=== PATIENT | female | born 1955 | race Caucasian/White ===

== ENCOUNTER → 2021-08-15 16:29 | Outpatient (CLI) | payer MEDICARE, OTHER, MEDICAID, SELFPAY | PROVIDERS: Visit Provider Nurse Practitioner | DX: Z20.822 Contact with and (suspected) exposure to COVID-19 (principal) | CPT/HCPCS: C9803; U0003; U0005 ==

== ENCOUNTER 2021-09-06 10:12 | Emergency (ER) | payer MEDICARE, OTHER, MEDICAID, SELFPAY ==
[2021-09-06] VITALS (8 sets, daily range): BP systolic 93–108; BP diastolic 33–71; PULSE 65–83; RESP 16–98; TEMP 36.6–36.8; O2SAT 96–98; BMI 32.1
--- NOTE | 2021-09-06 11:10 | HMH.EDGENADL ---
ED Disposition Clinical Impression: Low back pain Qualifiers: Chronicity: acute Back pain laterality: unspecified Sciatica presence: without sciatica Qualified Code(s): M54.50 - Low back pain, unspecified Disposition: Home, Self-Care Condition on Discharge: Good Instructions: DI for Low Back Pain Additional Instructions: [place] as needed for pain. Prednisone as prescribed. Follow-up with primary care provider within 1 week, call for appointment. Additional instructions for BACK PAIN: Return immediately if back pain becomes intolerable, or if fever, numbness or weakness of your legs, loss of control of your bowels or bladder. Additional instructions for CONTROLLED SUBSTANCES: You have been prescribed a medication that is a controlled substance. Controlled substances include pain medications known as opiates and sedative nerve medications known as benzodiazepines. Tramadol, fioricet, and gabapentin are also controlled substances. Some common opiates include: Codeine (such as Tylenol #3) Hydrocodone (Vicodin, Lortab, Lorcet, [place]) Oxycodone (Percocet, Percodan, Oxycodone, Oxy IR) Some common benzodiazepines include: Diazepam (Valium) Lorazepam (Ativan) Alprazolam (Xanax) Clonazepam (Klonopin) Oxazepam (Serax) All of these controlled substances are highly addictive and frequently abused. Misuse can and frequently does lead to addiction as well as overdose and . Medication should be stored in a locked cabinet or other secure storage unit. Do not store the medication in a motor vehicle. Short term supplies, 3 days or less, are prescribed because of the highly addictive nature of the medication. Any of the controlled substance medication NOT taken should be disposed of properly and NOT SAVED. The recommended method of disposing of unused medications is: Place the medicines in a sealable plastic bag. If the medicine is a solid, crush it or add water to dissolve it. Add something undesirable (cat litter, coffee grounds, etc.) Dispose of sealed bag in household trash Do not flush or pour unused medicines down a sink or drain. Controlled substances should not be shared, given away or sold. Because of the addictive nature and frequent abuse, these medications are sometimes stolen. These medications should be kept in a safe place where they cannot be stolen. Do not keep them in your car or purse. Lost or stolen prescriptions for controlled substances WILL NOT BE REFILLED in this emergency department, regardless of whether a police report was filed. Prescriptions: Hydrocod/Acet 5/325 mg [[place] 5/325mg tablet] 1 tab PO Q6HP PRN #10 tab PRN Reason: Pain Transmission Status: Sent to [id number] predniSONE [Prednisone 20mg Tab] 20 mg PO BID #10 tab Transmission Status: Pending to [id number] Referrals: Siva Swann MD [Primary Care Provider] - - Critical Care Critical Care Time: No Attestation: On 09/06/21, the high probability of a clinically significant, sudden or life threatening deterioration of the following system(s) required my full and direct attention, intervention and personal management. The time I documented below is in addition to time spent performing reported procedures but includes the following listed in this critical care notation. Medical Decision Making - Krish Inquiry Pt receiving controlled substance: Yes Krish was queried for this patient: Yes Risks and benefits of using a controlled substance: were discussed with pt by me Vital Signs: 09/06/21 10:15 Temperature 98.2 F Temperature Source Oral Pulse Rate [Radial] 83 Respiratory Rate 98 H Blood Pressure [Right Arm] 108/51 L Blood Pressure Mean [Right Arm] 70 Blood Pressure Position [Right Arm] Sitting 02 Sat by Pulse Oximetry 98 Oxygen Delivery Method Room Air - CT Data CT Scan: L-Spine Time Received: 12:[address] Reviewed: Yes: I have viewed the radiologist's interpreta
--- NOTE | 2021-09-06 11:21 | CT_ITS ---
FINAL REPORT CLINICAL HISTORY: back pain/injury FINDINGS: Axial imaging of the lumbar spine was obtained without contrast. Sagittal and coronal reformatted images were also obtained and reviewed.This study was performed with techniques to keep radiation doses as low as reasonably achievable (ALARA). Individualized dose reduction techniques using automated exposure control or adjustment of mA and/or kV according to the patient's size were employed. There is no fracture. There are multilevel degenerative changes. There is severe L3-L4 endplate change. There is mild retrolisthesis of L2 on L3 and L3 on L4. There is vacuum disc phenomenon at several levels. There is leftward curvature. There is multilevel neural foraminal narrowing which is worst and severe at L3-L4. There is mild central canal stenosis at L3-L4. There are degenerative changes at the SI joints with spurring. IMPRESSION: Multilevel degenerative change without acute bony abnormality. Reviewed, Interpreted and Dictated by David Medina III, MD Transcribed by Lotus Marcum Authenticated by David Medina III, MD on 09/06/2021 12:32:18 PM [facility]
== END 2021-09-06 14:13 | disposition home or self-care (01) ==
PROVIDERS: Emergency Provider Emergency Medicine; PCP Internal Medicine Adolescent Medicine
DX: M54.50 Low back pain, unspecified (principal); Z85.528 Personal history of other malignant neoplasm of kidney
CPT/HCPCS: 72131; 99282

== ENCOUNTER → 2022-06-27 12:52 | Outpatient (CLI) | payer MEDICARE, OTHER, MEDICAID, SELFPAY ==
--- NOTE | 2022-06-27 12:58 | XR_ITS ---
FINAL REPORT CLINICAL HISTORY: DIABETES MELLITUS,LT FOOT BUNION FINDINGS: RIGHT FOOT Three views of the right foot demonstrate no acute fracture or dislocation. The joint spaces are preserved. There is a moderate plantar spur. The soft tissues are unremarkable. IMPRESSION: No acute bony abnormality. Reviewed, Interpreted and Dictated by Kristian Spear MD Transcribed by Lotus Marcum Authenticated and [facility]
--- NOTE | 2022-06-27 12:58 | XR_ITS ---
FINAL REPORT CLINICAL HISTORY: BUNION FINDINGS: LEFT FOOT Three views of the left foot demonstrate no acute fracture or dislocation. The joint spaces are preserved. There is a moderate to large plantar spur. The soft tissues are unremarkable. IMPRESSION: No acute bony abnormality. Reviewed, Interpreted and Dictated by Kristian Spear MD Transcribed by Lotus Marcum Authenticated and [facility]
== END ==
PROVIDERS: PCP Internal Medicine Adolescent Medicine; Visit Provider Internal Medicine Adolescent Medicine
DX: M79.672 Pain in left foot (principal); M79.671 Pain in right foot; E11.9 Type 2 diabetes mellitus without complications; M21.612 Bunion of left foot
CPT/HCPCS: 73630

== ENCOUNTER → 2022-10-24 10:17 | Outpatient (CLI) | payer MEDICARE, OTHER, SELFPAY ==
--- NOTE | 2022-10-24 | US_ITS ---
FINAL REPORT CLINICAL HISTORY: Decreased pulses, DM, HTN, HLD, color changes in feet COMPARISON: None FINDINGS: ANKLE-BRACHIAL PRESSURE INDICES Pressure indices are as follows: RIGHT LOWER EXTREMITY: Ankle-brachial pressure index: 1.0 Comments: Normal LEFT LOWER EXTREMITY: Ankle-brachial pressure index: 1.1 Comments: Normal IMPRESSION: No evidence of significant obstructive peripheral vascular disease of the lower extremities Reviewed, Interpreted and Dictated by Yarelis Ho MD Transcribed by Nuha Hall Authenticated and [facility]
== END ==
PROVIDERS: PCP Internal Medicine Adolescent Medicine; Visit Provider Nurse Practitioner Family
DX: R09.89 Other specified symptoms and signs involving the circulatory and respiratory systems (principal)
CPT/HCPCS: 93923

== ENCOUNTER → 2023-01-08 11:46 | Outpatient (CLI) | payer MEDICARE, OTHER, SELFPAY ==
--- NOTE | 2023-01-08 11:51 | XR_ITS ---
FINAL REPORT CLINICAL HISTORY: OSTEOARTHRITIS COMPARISON: None FINDINGS: Three views of the left knee reveal no evidence of fracture or dislocation. The bony alignment is normal. There is moderate degenerative change. Medial compartment narrowing is noted. There is a small joint effusion. No localized soft tissue abnormality is seen. IMPRESSION: No acute abnormality identified. Reviewed, Interpreted and Dictated by David Medina III, MD Transcribed by Nuha Hall Authenticated and . [facility]
--- NOTE | 2023-01-08 11:51 | XR_ITS ---
FINAL REPORT CLINICAL HISTORY: OSTEOARTHRITIS COMPARISON: None FINDINGS: Three views of the right knee reveal no evidence of fracture or dislocation. The bony alignment is normal. Moderate to severe degenerative change. Medial compartment narrowing. There is 7 mm of lateral subluxation of the tibia in relation to the distal femur. There is a moderate joint effusion. No localized soft tissue abnormality is identified. IMPRESSION: No acute abnormality identified. Reviewed, Interpreted and Dictated by David Medina III, MD Transcribed by Nuha Hall Authenticated and [facility]
== END ==
PROVIDERS: PCP Internal Medicine Adolescent Medicine; Visit Provider Internal Medicine Adolescent Medicine
DX: M17.11 Unilateral primary osteoarthritis, right knee (principal); M17.12 Unilateral primary osteoarthritis, left knee
CPT/HCPCS: 73562

== ENCOUNTER → 2023-01-24 09:30 | Outpatient (CLI) | payer MEDICARE, OTHER, SELFPAY ==
--- NOTE | 2023-01-24 | XR_ITS ---
FINAL REPORT CLINICAL HISTORY: Foot Pain COMPARISON: 06/27/2022 FINDINGS: RIGHT FOOT SERIES Three views of the right foot were obtained. There is no acute fracture or dislocation. There is a hallux valgus deformity. There is mild degenerative change of the first metatarsal phalangeal joint. There is a pes planus deformity and is worse since the prior, but the current exam is weightbearing. There is a plantar calcaneal spur. There is no soft tissue abnormality. IMPRESSION: Hallux valgus deformity. Mild degenerative change. Pes planus deformity, which is worse since prior, but current exam is weightbearing. Reviewed, Interpreted and Dictated by David Medina III, MD Transcribed by Diego Baker Authenticated and . [facility]
--- NOTE | 2023-01-24 09:33 | XR_ITS ---
FINAL REPORT CLINICAL HISTORY: Foot Pain COMPARISON: 06/27/2022 FINDINGS: LEFT FOOT SERIES Three views of the left foot were obtained. There is no acute fracture or dislocation. Moderate to severe hallux valgus deformity which is visually worse. Mild degenerative change. There is a pes planus deformity which is worse, but the current exam is performed as weightbearing. There is a plantar calcaneal spur. There is no soft tissue abnormality. IMPRESSION: Worsening moderate to severe hallux valgus deformity. Mild degenerative. Worsening pes planus deformity, but current exam is performed as weightbearing. Reviewed, Interpreted and Dictated by David Medina III, MD Transcribed by Diego Baker Authenticated and [facility]
[2023-01-24 10:07] LABS: Basophils % 0.5 % (0.1-2.0); Eosinophils # 0.3 K/mm3 (0.0-0.4); Eosinophils % 3.9 % (0.1-12.0); Hematocrit 44.5 % (37.0-47.0); Hemoglobin 14.2 g/dL (12.2-16.2); Lymphocytes # 1.4 K/mm3 (0.7-4.5); Lymphocytes % 21.8 % (10-50); Mean Corpuscular Hemoglobin 29.9 pg (27.0-31.2); Mean Corpuscular Volume 93.5 fl (81-99); Monocytes # 0.3 K/mm3 (0.1-1.0); Monocytes % 5.2 % (1.7-9.3); Neutrophils # 4.5 K/mm3 (1.8-7.8); Neutrophils % 68.6 % (37.0-80.0); Platelet Count 196 K/mm3 (142-424); Red Blood Count 4.76 M/mm3 (4.20-5.40); Red Cell Distribution Width 13.4 % (11.5-17.5); White Blood Count 6.6 K/mm3 (4.8-10.8)
[2023-01-24 10:19] LABS: Alanine Aminotransferase 30 U/L (12-78); Albumin Level 4.7 g/dl (3.5-5.0); Albumin/Globulin Ratio 1.8 (1.1-1.8); Alkaline Phosphatase 66 U/L (38-126); Anion Gap 15.6 mEq/L (5-15); Aspartate Amino Transferase 34 U/L (14-36); Bilirubin,Total 0.4 mg/dl (0.2-1.3); Blood Urea Nitrogen 24 mg/dl (7-17); Calcium 9.6 mg/dl (8.4-10.2); Carbon Dioxide 27 mmol/L (22.0-30.0); Chloride 101 mmol/L (98-107); Estimated Glomerular Filt Rate 63 ml/min (>60); GFR (African American) 76 ML/MIN (>60); Globulin 2.6 g/dL (1.3-3.2); Glucose 105 mg/dl (74-100); Potassium 4.6 mmoL/L (3.5-5.1); Sodium 139 mmol/L (136-145); Total Protein,Serum 7.3 g/dl (6.3-8.2)
[2023-01-24 10:32] LABS: Hemoglobin A1C 5.4 % (4.0-6.0)
== END ==
PROVIDERS: PCP Internal Medicine Adolescent Medicine; Visit Provider Nurse Practitioner Family
DX: M79.672 Pain in left foot; M54.50 Low back pain, unspecified; E11.69 Type 2 diabetes mellitus with other specified complication
CPT/HCPCS: 36415; 73630; 80053; 83036; 85025

== ENCOUNTER → 2023-02-14 15:58 | Outpatient (CLI) | payer MEDICARE, OTHER, SELFPAY ==
--- NOTE | 2023-02-14 15:58 | MR_ITS ---
PROCEDURE INFORMATION: Exam: MR Left Lower Extremity Other Than Joint Without Contrast; Foot Exam date and time: 02/14/2023 3:55 PM Age: 68 years old Clinical indication: Pain; Foot; Left; Additional info: Foot pain. Pain and numbness x many years. TECHNIQUE: Imaging protocol: Magnetic resonance imaging of the left lower extremity without contrast. Exam focused on the foot. COMPARISON: CR XR FOOT WT BEARING LT 3V 01/24/2023 9:37 AM FINDINGS: Bones/joints: Moderate hallux valgus deformity is unchanged. There is associated moderate arthritic changes in the great toe MTP joint. There is a small MTP joint effusion also present. Mild scattered midfoot arthritic changes. No acute fracture. Old fracture of the medial malleolus. LIGAMENTS: Lisfranc ligament: Unremarkable. No evidence of tear. TENDONS: Flexor tendons of foot: Unremarkable. No evidence of tear. Tibialis posterior tendon: Unremarkable as visualized. Peroneal tendons: Unremarkable as visualized. Extensor tendons of foot: Unremarkable. No evidence of tear. Tibialis anterior tendon: Unremarkable as visualized. Tarsal canal (Sinus tarsi): Unremarkable. Tarsal tunnel: Unremarkable. Soft tissues: Unremarkable. Plantar fascia: The proximal plantar fascia is thickened with associated calcaneal enthesopathy. IMPRESSION: 1. Moderate hallux valgus deformity with moderate arthrosis of the great toe metatarsophalangeal joint and small effusion is unchanged with the comparison x-ray. 2. Chronic appearing plantar fasciitis changes.
== END ==
PROVIDERS: PCP Internal Medicine Adolescent Medicine; Visit Provider Podiatrist
DX: M79.672 Pain in left foot (principal)
CPT/HCPCS: 73718

== ENCOUNTER 2023-04-02 17:54 | Emergency (ER) | payer MEDICARE, OTHER, SELFPAY ==
[2023-04-02 18:35] VITALS: BP 131/86; PULSE 70; RESP 17; TEMP 36.7; O2SAT 99; BMI 31.5
[2023-04-02 18:59] VITALS: BP 131/86; PULSE 70; RESP 17; TEMP 36.7; O2SAT 99
--- NOTE | 2023-04-02 19:28 | EXP.UTC ---
Discharge Plan Disposition Patient Disposition: Home, Self-Care Condition: Good Prescriptions Prescriptions: New azithromycin [Zithromax Z-Kris] 250 mg tablet See Rx Instructions .ROUTE .COMPLEX 5 Days Qty: 6 0RF Rx Instructions: For 250 mg dose pack: take 500 mg today (day 1), then 250 mg for 4 days (days 2-5) fluticasone propionate [Flonase Allergy Relief] 50 mcg/actuation spray,suspension 1 - 2 spray intranasal DAILY Qty: 16 0RF Rx Instructions: administer into each nostril No Action Trulicity 1.5 mg/0.5 mL pen injector 1.5 mg SQ irbesartan-hydrochlorothiazide 300-12.5 mg tablet 1 tab PO Patient Comments: TAKE 1 TABLET BY MOUTH ONCE DAILY diclofenac sodium 75 mg tablet,delayed release (DR/EC) 75 mg PO Patient Comments: TAKE 1 TABLET BY MOUTH TWICE DAILY FOR 30 DAYS rosuvastatin 20 mg tablet 20 mg PO Patient Comments: TAKE 1 TABLET BY MOUTH ONCE DAILY famotidine 40 mg tablet 40 mg PO estradiol 0.01 % (0.1 mg/gram) cream vaginal Patient Comments: INSERT 1/2 (ONE-HALF) GRAM VAGINALLY TWICE A WEEK calcium carbonate 600 mg calcium (1,500 mg) tablet 600 mg PO DAILY cholecalciferol (vitamin D3) 10 mcg (400 unit) capsule 10 mcg PO DAILY omega-3 fatty acids 500 mg capsule 500 mg PO DAILY Referrals Follow up/Referrals: Siva Swann MD [Primary Care Provider] - See instructions Instructions Patient Instructions: Middle Ear Infection, Ear Infections (Alternative Therapy) Discharge ED Provider: Sarai Mondragon [facility] General Stated complaint: left ear pain Mode of Arrival: Ambulatory Source of Information: Patient Limitations: No Limitations Time Seen by Provider: 04/02/23 19:28 Description of Symptoms (Recalled from Triage Doc. by RN): PATIENT C/O LEFT EAR ACHE X 5 DAYS HEENT Symptoms (Recalled from RN notes): Yes Resp Symptoms (Recalled from RN notes): No Skin Symptoms (Recalled from RN notes): No MS Symptoms (Recalled from RN notes): No Functional Status (Recalled from RN notes): WNL History of Present Illness Provider Complaint: Patient states that for the last 5 days she has been having pain in her left ear States that it has continued to get worse and shooting pain through her ear States that today it was bothering her so she came in [place] [facility] [place] Related Data Home Medications Medication Instructions Recorded Confirmed diclofenac sodium 75 mg 75 mg PO 07/17/22 02/10/23 tablet,delayed release dulaglutide 1.5 mg/0.5 mL 1.5 mg SQ 07/17/22 02/10/23 subcutaneous pen injector (Trulicity) famotidine 40 mg tablet 40 mg PO 07/17/22 02/10/23 irbesartan 300 1 tab PO 07/17/22 02/10/23 mg-hydrochlorothiazide 12.5 mg tablet rosuvastatin 20 mg tablet 20 mg PO 07/17/22 02/10/23 calcium carbonate 600 mg calcium 600 mg PO DAILY 11/06/22 02/10/23 (1,500 mg) tablet cholecalciferol (vitamin D3) 10 10 mcg PO DAILY 11/06/22 02/10/23 mcg (400 unit) capsule estradiol 0.01% (0.1 mg/gram) g vaginal 11/06/22 02/10/23 vaginal cream omega-3 fatty acids 500 mg capsule 500 mg PO DAILY 11/06/22 02/10/23 Previous Rx's Medication Instructions Recorded azithromycin 250 mg tablet See Rx Instructions PO .COMPLEX 5 04/02/23 (Zithromax Z-Kris) days #6 tabs fluticasone propionate 50 1 - 2 spray intranasal DAILY #16 04/02/23 mcg/actuation nasal grams spray,suspension (Flonase Allergy Relief) Allergies Allergy/AdvReac Type Severity Reaction Status Date / Time cephalexin [From Keflex] Allergy Verified 02/10/23 09:32 Worker's Comp Is this a Worker's Comp case?: No PFSH [facility] Disclaimer: The information contained in this section may have been updated after the patient was seen, as this information can be updated by other users. Medical History Primary cancer of left kidney Surgical History (Reviewed
== END 2023-04-02 19:38 | disposition home or self-care (01) ==
PROVIDERS: Emergency Provider Nurse Practitioner; PCP Internal Medicine Adolescent Medicine
DX: H66.92 Otitis media, unspecified, left ear (principal)
CPT/HCPCS: 99204; 99212; G0463

== ENCOUNTER → 2023-06-10 13:01 | Outpatient (CLI) | payer MEDICARE, OTHER, SELFPAY ==
--- NOTE | 2023-06-10 13:14 | XR_ITS ---
FINAL REPORT CLINICAL HISTORY: preoperative exam for surgery on 06/25 htn FINDINGS: TWO-VIEW CHEST The heart size is normal. The mediastinum is normal. There is a calcified granuloma in the left upper lobe. The lungs are otherwise clear. There is no pneumothorax. There is 25 degrees thoracic scoliosis convex to the right. IMPRESSION: No acute cardiopulmonary process. Reviewed, Interpreted and Dictated by Kristian Spear MD Transcribed by Latesha Simeon Authenticated and . [facility]
[2023-06-10 13:22] LABS: Basophils % 0.5 % (0.1-2.0); Eosinophils # 0.2 K/mm3 (0.0-0.4); Eosinophils % 3.1 % (0.1-12.0); Hematocrit 41.7 % (37.0-47.0); Hemoglobin 14.1 g/dL (12.2-16.2); Lymphocytes # 1.5 K/mm3 (0.7-4.5); Mean Corpuscular HGB Conc 33.8 g/dL (31.8-35.4); Mean Corpuscular Hemoglobin 32.5 pg (27.0-31.2); Mean Corpuscular Volume 96.1 fl (81-99); Mean Platelet Volume 8.8 fl (7.4-10.4); Monocytes # 0.3 K/mm3 (0.1-1.0); Monocytes % 4.2 % (1.7-9.3); Neutrophils # 4.6 K/mm3 (1.8-7.8); Neutrophils % 69.2 % (37.0-80.0); Platelet Count 197 K/mm3 (142-424); Red Blood Count 4.34 M/mm3 (4.20-5.40); Red Cell Distribution Width 13.4 % (11.5-17.5); White Blood Count 6.6 K/mm3 (4.8-10.8)
[2023-06-10 13:49] LABS: Chloride 106 mmol/L (98-107); Potassium 4.1 mmoL/L (3.5-5.1); Sodium 140 mmol/L (136-145)
[2023-06-10 13:51] LABS: Alanine Aminotransferase 26 U/L (12-78); Alkaline Phosphatase 73 U/L (38-126); Anion Gap 8.1 mEq/L (5-15); Aspartate Amino Transferase 35 U/L (14-36); Bilirubin,Total 0.5 mg/dl (0.2-1.3); Blood Urea Nitrogen 20 mg/dl (7-17); Carbon Dioxide 30 mmol/L (22.0-30.0); Estimated Glomerular Filt Rate 62 ml/min (>60); GFR (African American) 76 ML/MIN (>60)
[2023-06-10 13:52] LABS: Albumin Level 4.5 g/dl (3.5-5.0); Albumin/Globulin Ratio 1.7 (1.1-1.8); Calcium 9.9 mg/dl (8.4-10.2); Globulin 2.7 g/dL (1.3-3.2); Glucose 102 mg/dl (74-100); Total Protein,Serum 7.2 g/dl (6.3-8.2)
[2023-06-10 15:40] LABS: Hemoglobin A1C 5.3 % (4.0-6.0)
[2023-06-18 12:14] LABS: 1,25 Dihydroxy Vitamin D 49 pg/mL (.); 1,25-Dihydroxy, Vitamin D-2 <10 pg/mL (.); 1,25-Dihydroxy, Vitamin D-3 49 pg/mL (.)
== END ==
PROVIDERS: PCP Internal Medicine Adolescent Medicine; Visit Provider Podiatrist
DX: M20.11 Hallux valgus (acquired), right foot (principal); M20.12 Hallux valgus (acquired), left foot; M21.41 Flat foot [pes planus] (acquired), right foot; M21.42 Flat foot [pes planus] (acquired), left foot; M54.50 Low back pain, unspecified; R09.89 Other specified symptoms and signs involving the circulatory and respiratory systems; E11.65 Type 2 diabetes mellitus with hyperglycemia; E66.9 Obesity, unspecified; Z68.29 Body mass index [BMI] 29.0-29.9, adult
CPT/HCPCS: 71046; 80053; 82652; 83036; 85025

== ENCOUNTER 2023-06-25 09:25 | Day surgery (SDC) | payer MEDICARE, OTHER, SELFPAY ==
[2023-06-20 11:30] VITALS: BMI 29.2
[2023-06-25] VITALS (9 sets, daily range): BP systolic 117–164; BP diastolic 58–93; PULSE 62–69; RESP 16–18; TEMP 36.3–36.8; O2SAT 93–100
[2023-06-25 10:11] LABS: POC Glucose,Bedside 95 (70-110)
--- NOTE | 2023-06-25 11:45 | EXP.ANES.CKL ---
[facility] Disclaimer: The information contained in this section may have been updated after the patient was seen, as this information can be updated by other users. Medical History HTN (hypertension) Primary cancer of left kidney Surgical History H/O hernia repair H/O: hysterectomy History of bladder surgery History of nephrectomy, left History of tonsillectomy Family History Other Family history of cancer Family history of hypertension Social History Smoking Status: Never smoker alcohol intake: never substance use type: denies use current occupational status: other details: [employer] Travel in the last 8 weeks: None [facility] Anesthesia Checklist Patient Identification Patient Identification: Arm Band Structural Data Admitted From: Home Planned Operative Procedure/s: Left Foot Lapidus Bunionectomy, Hammertoe Repair Consent for Planned Operative Procedure(s) Verified: Yes Verified Documents: Surgical Consent and History and Physical NPO Status Verified Time NPO: 00:00 Additional verifications Anesthesia Reactions: No (nausea) Hx Blood Transfusions: No Blood Transfusion Reaction: No Airway Assessment Mallampati Score:: Class II C-Spine Mobility Assessed: Yes TMJ Mobility Assessed: Yes Dentition: Good Dentition Neurological Assessment Level of Consciousness: Awake and Alert Anesthesia Plan Anesthesia Risk discussed: Yes Anesthesia Plan: Verified ASA Class: II Anesthesia Type: General w/block (Left Popliteal/Adductor Canal. Risks/benefits explained. Pt verbalized understanding)
--- NOTE | 2023-06-25 14:30 | XR_ITS ---
FINAL REPORT CLINICAL HISTORY: post op bunion COMPARISON: 01/24/2023 FINDINGS: LEFT FOOT Since the prior examination of the left foot the patient has undergone bunionectomy and fusion of the first metatarsal phalangeal joint. In addition, there are orthopedic plates and screws bridging fusions of the first, second, and third metatarsal tarsal articulations. The images are somewhat obscured by the patient's cast material, but no acute bony abnormalities are otherwise identified. The visualized joint spaces are normally aligned. The soft tissues are unremarkable. IMPRESSION: Postop bunionectomy and fusion of the first metatarsal phalangeal joint with orthopedic plate and screws, as well as the first, second, and third metatarsal tarsal articulations. Reviewed, Interpreted and Dictated by Kristian Spear MD Transcribed by Maria T Leroy Authenticated and . [facility]
--- NOTE | 2023-06-25 15:04 | XR_ITS ---
FINAL REPORT CLINICAL HISTORY: OR IMAGES, BUNIONECTOMY, HAMMERTOE,OSTEOTOMY Fluoro time: 1:41 2.40 mgy FINDINGS: FLUOROSCOPY LESS THAN 1 HOUR HISTORY: Fluoroscopy guidance. FINDINGS: Fluoroscopic guidance was provided for intraoperative procedure left foot. A single spot film was obtained. A total of 1.41 minutes of fluoroscopy time were used. DAP: 2.40 mGy IMPRESSION: As above. Reviewed, Interpreted and Dictated by Kristian Spear MD Transcribed by Nuha Hall Authenticated and [facility]
--- NOTE | 2023-06-25 15:14 | EXP.ANES.I ---
[facility] Anesthesia Record Part I Anesthesia Record I Intake, IV Amount: 1,400 Hydration: Adequate Estimated blood loss (mL): 10 Urine output (mL): 300 Blood Products used (#): none Blood Pressure: 134/74 SaO2: 93 Pulse Rate: 67 Airway Patency: Patent Respiratory Rate: 16 Temperature: 97.9 F Patient is:: Drowsy and Stable Stable to PACU at:: 15:10
--- NOTE | 2023-06-25 15:33 | EXP.OP.NOTE ---
Date of procedure: 06/25/23 Pre-op Diagnosis:: Left midfoot osteoarthritis Left foot bunion, hallux valgus Left first MPJ arthritis Post-op Diagnosis:: Same Procedure performed:: Left: lapidus bunionectomy (52374) multiple tarsometatarsal joints (2-3) arthrodesis (44707) 1st MPJ arthrodesis (09780) autograft bone harvest () Surgeon:: Alyssa Knight DPM PSYCHOLOGY ASSISTANT:: Constantin Oh Anesthesia: GETA and regional (left nerve block) Estimated blood loss (mL): 20 Operative findings:: Significant bony deformity noted with arthritis at the first second and third tarsometatarsal joints. Some degenerative changes noted to the first MTPJ with mild crepitus at the joint. No clinical signs of infection Operative note:: On this date and time, the patient was deemed an appropriate surgical candidate. With informed consent signed, the patient was taken to the operating theater after anesthesia did a regional nerve block. The patient was positioned supine. General anesthesia was induced. Tourniquet was applied to the mid calf. The left lower extremity was prepped and draped in normal sterile fashion. IV Ancef infused. Left calcaneal autograft bone harvest: Attention was directed to the lateral calcaneus where a an incision was mapped out. Dissection was carried down full-thickness to the level of the bone. Utilizing an autograft bone harvester drill was inserted into the calcaneus and drill. Approximately 10 cc of calcaneus cancellous bone was obtained. Wound was flushed with saline. Nylon used to close the skin. Left Lapidus bunionectomy: Tourniquet was inflated 225 mmHg. Attention directed to the dorsal medial foot where an incision was mapped out over the first metatarsal cuneiform joint. Dissection carried down full-thickness down to the level of the bone with care taken to maintain surgical hemostasis and preserve neurovascular structures. There was arthritic changes noted to the dorsal lateral aspect of the first tarsometatarsal (TMT) joint. First TMT release performed. Attention to is directed to the first interspace where a stab incision was made at the MTP joint just lateral to the EHL tendon. Lateral capsule incised and a complete suspensory ligament release was completed. There was some reduction of the hallux valgus deformity noted. Left multiple midfoot athrodesis: Utilizing intraoperative fluoroscopy, separate incision was made over the third TMTJ. Care taken to ensure an adequate skin bridge of 4 cm between the dorsal medial and dorsal lateral incisions. A longitudinal incision was made over the 3rd TMT joint. Careful dissection through skin subcutaneous tissue and retinaculum, care taken to leave ligamentous attachment between the 2nd and 3rd metatarsals. The 2nd and 3rd TMT joints were located and exposed. Complete release of the interval between the 3rd and 4th metatarsals was performed with a TriToma triple Edge release instrument and osteotome. The Adductoplasty planer system was utilized and inserted into the joints. Utilizing a saw the joints were planed. Next the cut guide was inserted into the joints. Intraoperative fluoroscopy was used to confirm position of the cut guides. Sagittal saw used to make continuous metatarsal and cuneiform cuts across both the 2nd and 3rd TMT joints. The bone slices were removed. All articular cartilage had been removed. This was confirmed with intraoperative fluoroscopy. Joints were flushed with saline. Next drill bit was used to fenestrate through the subchondral bone plates on both the joints. The autograft from the calcaneus was inserted to the fusion sites. TMT joints were manually reduced and a compressor was applied over the joints holding the reduction. Again reduction confirmed under intraoperative x-ray. A 4-hole Lapiplasty lesser TMT fixation plate was then applied on the dorsal 3rd TMT joint. It was inserted and fixated in standard technique. Similarly a 4-hole plate was then inserted on the 2nd TMT
--- NOTE | 2023-06-25 15:35 | SUR.OPER ---
Monroe catheter was dc'd at 1508 by derrick castro
[2023-06-25 15:39] LABS: POC Glucose,Bedside 127 (70-110)
--- NOTE | 2023-06-25 16:11 | SUR.PHASEII ---
Pt sent home w/ polar pac per MD's orders. Pt already has a knee scooter and walker at home and will not require them at [place].
--- NOTE | 2023-06-26 08:26 | EXP.ANES.II ---
[facility] Anesthesia Record Part II Anesthesia Record Part II Discharge Time: 15:40 Destination: Surgical Day Care (OP Surgery) PACU nurse assessment reviewed?: Yes Patient Condition:: Good Anesthesia Complications:: None Swallowing reflex intact?: Yes Airway Patency: Patent Cyanosis?: No Blood Pressure: 164/93 SaO2: 96 Respiratory Rate: 16 Pulse Rate: 69 Temperature: 97.3 F Mental Status: Alert & Oriented Pain level:: 0 Nausea and/or vomitting:: None Intake, IV Amount: 0 Hydration: Adequate
[2023-06-26 08:27] VITALS: BP 164/93; PULSE 69; RESP 16; TEMP 36.3; O2SAT 96
== END 2023-06-25 16:11 | disposition home or self-care (01) ==
PROVIDERS: PCP Internal Medicine Adolescent Medicine; Visit Provider Podiatrist
PROC: (CPT 28297; principal; 2023-06-25 11:00)
DX: M20.12 Hallux valgus (acquired), left foot (principal); M20.42 Other hammer toe(s) (acquired), left foot; E11.65 Type 2 diabetes mellitus with hyperglycemia; Z79.899 Other long term (current) drug therapy; M77.42 Metatarsalgia, left foot; I10 Essential (primary) hypertension
CPT/HCPCS: 28297; 28730; 28750; 73620; 73630; 76000; 82962; 87086; 96374; C1713; C1776; J2405

== ENCOUNTER → 2023-07-22 14:02 | Outpatient (CLI) | payer MEDICARE, OTHER, SELFPAY | PROVIDERS: PCP Internal Medicine Adolescent Medicine; Visit Provider Podiatrist | DX: Z98.890 Other specified postprocedural states (principal) | CPT/HCPCS: 73630 ==

== ENCOUNTER 2023-08-06 13:04 | Outpatient (CLI) | payer MEDICARE, OTHER, SELFPAY ==
--- NOTE | 2023-08-06 13:08 | XR_ITS ---
FINAL REPORT CLINICAL HISTORY: Left foot post op 6 weeks COMPARISON: 07/22/2023 FINDINGS: LEFT FOOT: Three views of the left foot were obtained. There are postoperative changes in the 1st digit of the midfoot with multiple screw plates and screws. Bony alignment is stable. There is no acute fracture or dislocation. The joint spaces are intact. There is a plantar calcaneal spur. There is no soft tissue abnormality. IMPRESSION: Postoperative changes with stable bony alignment. Reviewed, Interpreted and Dictated by David Medina III, MD Transcribed by Nuha Hall Authenticated and [facility]
== END 2023-08-06 23:59 ==
LOC: RAD 13:05
PROVIDERS: PCP Internal Medicine Adolescent Medicine; Visit Provider Podiatrist
DX: Z98.890 Other specified postprocedural states (principal); M79.672 Pain in left foot
CPT/HCPCS: 73630

== ENCOUNTER 2023-08-26 11:29 | Outpatient (CLI) | payer MEDICARE, OTHER, SELFPAY ==
--- NOTE | 2023-08-26 11:32 | XR_ITS ---
FINAL REPORT CLINICAL HISTORY: right knee pain FINDINGS: Right knee Three views were obtained. There is no acute fracture or dislocation. There is tricompartment degenerative change, most pronounced in the medial compartment. There is significant lateral subluxation. No soft tissue abnormality is identified. IMPRESSION: Significant degenerative changes as above. Reviewed, Interpreted and Dictated by Alf Rivera MD Transcribed by Latesha Simeon Authenticated and [facility]
--- NOTE | 2023-08-26 11:32 | XR_ITS ---
FINAL REPORT CLINICAL HISTORY: knee pain in left knee FINDINGS: Left knee Three views were obtained. There is no acute fracture or dislocation. There is moderate to severe tricompartment degenerative change, most pronounced in the medial compartment. There is mild lateral subluxation. No soft tissue abnormality is identified. IMPRESSION: Significant degenerative changes as above. Reviewed, Interpreted and Dictated by Alf Rivera MD Transcribed by Latesha Simeon Authenticated and . [facility]
== END 2023-08-26 23:59 ==
LOC: RAD 11:30
PROVIDERS: PCP Internal Medicine Adolescent Medicine; Visit Provider Orthopaedic Surgery
DX: M25.561 Pain in right knee (principal); M25.562 Pain in left knee
CPT/HCPCS: 73562

== ENCOUNTER 2023-09-08 10:26 | Outpatient (CLI) | payer MEDICARE, OTHER, SELFPAY ==
--- NOTE | 2023-09-08 10:35 | XR_ITS ---
FINAL REPORT CLINICAL HISTORY: post foot surgery FINDINGS: LEFT FOOT Three views of the left foot demonstrate no acute fracture or dislocation. There are postoperative changes of the mid and medial forefoot with plate and screw fixation. Calcaneal spurs are noted. The visualized joint spaces are normally aligned. The soft tissues are unremarkable. IMPRESSION: Postoperative changes without acute bony abnormality. Reviewed, Interpreted and Dictated by David Medina III, MD Transcribed by Chantal Bernabe Authenticated and [facility]
== END 2023-09-08 23:59 ==
LOC: RAD 10:27
PROVIDERS: PCP Internal Medicine Adolescent Medicine; Visit Provider Podiatrist
DX: T81.49XA Infection following a procedure, other surgical site, initial encounter (principal); Z98.890 Other specified postprocedural states
CPT/HCPCS: 73630

== ENCOUNTER 2023-09-29 06:44 | Outpatient (CLI) | payer MEDICARE, OTHER, SELFPAY ==
--- NOTE | 2023-09-29 06:48 | CT_ITS ---
FINAL REPORT TECHNIQUE: Thin section axial CT images with coronal and sagittal reformats were performed. This study was performed with techniques to keep radiation doses as low as reasonably achievable (ALARA). Individualized dose reduction techniques using automated exposure control or adjustment of mA and/or kV according to the patient''s size were employed. CLINICAL HISTORY: Left foot pain COMPARISON: None FINDINGS: There are postoperative changes in the first digit and midfoot with multiple screw plates and screws. There is no acute fracture. There is mild degenerative change. Plantar calcaneal spur is noted. There are soft tissue calcifications in the plantar midfoot. There is no acute bony erosion. IMPRESSION: Postoperative and degenerative changes as above. Reviewed, Interpreted and Dictated by David Medina III, MD Transcribed by Nuha Hall Authenticated and [facility]
== END 2023-09-29 23:59 ==
LOC: RAD 06:44
PROVIDERS: PCP Internal Medicine Adolescent Medicine; Visit Provider Podiatrist
DX: Z98.890 Other specified postprocedural states (principal); M79.672 Pain in left foot
CPT/HCPCS: 73700

== ENCOUNTER 2023-10-20 09:00 | Outpatient (RCR) | payer MEDICARE, OTHER, SELFPAY ==
--- NOTE | 2023-09-17 16:55 | HMH.PTOPEV ---
PT Outpatient Evaluation Rehab PT Outpatient Evaluation Start: 09/17/23 12:53 Freq: Status: Active Protocol: Document 09/17/23 12:53 VERNONEDISON (Rec: 09/17/23 13:51 VICTOR HUGO [id number]) E-signed By Linda Marte, PT Outpatient Therapy Subjective History Subjective History Pt is a 68 y/o female who reports chronic L>R medial knee pain for >10 years. Pt reports worsening of pain after having surgery on her L foot on 06/25/23. Pt had knee xrays at [facility] on 08/26/23 with impression of Significant degenerative changes. Pt reports she had injections in her knees on 09/09/23 which she states did not provide relief for her. Pt reports she also uses Diclofenac without much relief. Pt reports she uses a rollator walker for long distance ambulation and a quad cane for short distances and household ambulation. Pt denies falls. Pt denies numbness/tingling. Pt reports pain is aggravated by weightbearing activities such as standing, walking, squatting and stair climbing. Pt reports pain is relieved with rest. Pt reports she returns to her doctor in 3 months to discuss further care with possibility of knee replacement surgery. Medical History: Hypertension, Hyperlipidema, chronic back pain New diagnosis of cancer in past 12 No: Left kidney cancer 10 months? years ago, currently cancer free Chief Complaint Pain,Stiff Symptom Type Sharp Symptoms Relieved By Rest/Positioning Symptoms Aggravated By Standing,Physical Activity, Walking Current Functional Limitations Standing,Squatting,Recreation Activity,Walking,Stairs Symptom Description Intermittent Level of pain today (0-10) 8 Pain scale - at its best (0-10) 0 Pain scale - at its worst (0-10) 10 Hip/Knee Eval Gait Observation General Gait Pattern Observation Antalgic Gait Assistive Device Assistive Devices Rolling / Wheeled Walker Palpation Tenderness bilateral Knee Palpation Finding Tenderness Knee Palpation Overall Comment medial joint line MMT Hip Flexion Strength Grade 4 Good Hip Abduction Strength Grade 4- Good- Hip Adduction Strength Grade 4- Good- Hip Extension Strength Grade 4- Good- Knee Extension Strength Grade 4 Good Knee Flexion Strength Grade 4 Good ROM left Knee Extension Active Range of Motion ( 0 degrees) Knee Flexion Active Range of Motion ( 115 degrees) right Knee Extension Active Range of Motion ( 0 degrees) Knee Flexion Active Range of Motion ( 120 degrees) Effusion joint effusion knee exam standard right Mid - Patellar Circumerential Measure ( 43.5 cm) Lower Extremity Functional Index Activities Today, do you or would you have any difficulty at all with: a.Any of your usual work, housework or Moderate difficulty school activities b. Your usual hobbies, recreational or Quite a bit of difficulty sporting activities c. Getting into or out of the bath No difficulty d. Walking between rooms Moderate difficulty e. Putting on your shoes or socks A little bit of difficulty f. Squatting Extreme difficulty or unable to perform activity g. Lifting an object, like a bag of No difficulty groceries from the floor h. Performing light activities around Moderate difficulty your home i. Performing heavy activities around Quite a bit of difficulty your home j. Getting into or out of a car A little bit of difficulty k. Walking 2 blocks Extreme difficulty or unable to perform activity l. Walking a mile Extreme difficulty or unable to perform activity m. Going up or down 10 stairs (about 1 Extreme difficulty or unable flight of stairs) to perform activity n. Standing for 1 hour Extreme difficulty or unable to perform activity o. Sitting for 1 hour No difficulty p. Running on even ground Extreme difficulty or unable to perform activity q. Running on uneven ground Extreme difficulty or unable to perform activity r. Making sharp turns while running fast Extreme difficulty or unable to perform activity s. Hopping Extreme difficulty or unable to perform activity t. Rolling over in bed A little bit of difficulty LEFI Score Lower Extremity Functional Index Score 29 Outpatient Therapy Assessment Impairments Problems/Impairmments Palpation Tenderness,Impaired Range of Motion,Impaired Strength,Impaired Gait Pattern ,Impaired Walking,Impaired Standing,Impaired Household Care,Impaired Stair Climbing, Impaired Incline Stepping, Impaired Stepping on Uneven Surface,Impaired Squatting, Subjective C/O Pain,Impaired Self Care/Self Management Prognosis Rehab Potential Good Clinical Impression Consistent with Diagnosis Yes Short Term Goals Number of Weeks 3 Decrease Subjective C/O Pain Yes: Improve pain at worst to 8/10 to improve overall QOL Improve Self Care/Self Management Yes [employer] Associate Goals Number of Weeks 6 Increase Range of Motion Yes: Improve L knee AROM to 0- 120 Increase Strength Yes: Improve BLE MMT to 4+/5 grossly to assist with function Increase Ability to Stand Yes: >5' with pain 6/10 or less to assist with ADLs Improve LEFI Score Yes: Improve score to 40 to improve overall QOL Decrease Subjective C/O Pain Yes: Improve pain at worst to 6/10 to improve overall QOL Patient to be Ind w/ Advanced HEP Yes Outpatient Therapy Plan of Care Treatment Plan May Include Therapeutic Exercise Including Home Yes Exercise Program Manual Therapy Techniques Yes Neuromuscular Re-education Yes Therapeutic Activities to Return to Yes Previous Functional/Work Level Gait Training Yes ADL/Self Care Education Yes Dry Needling Yes Thermal Modalities Yes Electrical Stimulation Yes Ultrasound/Phonophoresis Yes Iontophoresis Yes Orthotics/Bracing/Splinting Yes Vasopneumatic Compression Pump Yes Massage Yes Manual Lymphatic Drainage Yes Group Therapy for Medicare Yes Eval/Re-Eval Yes Aquatic Therapy Yes Frequency Times per week 2 Duration Number of Weeks 4-6 Addendums This patient is a candidate for social No or vocational rehab? Patient/Guardian verbally acknowledges Yes understanding of treatment program and consents to further treatment? Patient/Guardian verbally acknowledges Yes understanding of diagnosis, prognosis and goals for treatment? Eval Complexity PT Charges 18113 - Low Complexity Shoulder/Elbow Eval Shoulder Objective Measurements Elbow Objective Measurements PHYSICIAN CERTIFICATION: I certify the specified therapy services for Italia Maravilla are required, authorized, and reviewed every 30 days.
--- NOTE | 2023-10-16 15:53 | HMH.RHREAS ---
Rehab Reassessment Rehab OP Re-assessment Start: 09/17/23 12:53 Freq: Status: Active Protocol: Document 10/16/23 14:47 VERNONEDISON (Rec: 10/16/23 15:52 VICTOR HUGO [id number]) E-signed By Linda Marte PT Lower Extremity Functional Index Activities Today, do you or would you have any difficulty at all with: a.Any of your usual work, housework or Moderate difficulty school activities b. Your usual hobbies, recreational or Quite a bit of difficulty sporting activities c. Getting into or out of the bath No difficulty d. Walking between rooms A little bit of difficulty e. Putting on your shoes or socks No difficulty f. Squatting Quite a bit of difficulty g. Lifting an object, like a bag of A little bit of difficulty groceries from the floor h. Performing light activities around Moderate difficulty your home i. Performing heavy activities around Quite a bit of difficulty your home j. Getting into or out of a car No difficulty k. Walking 2 blocks Extreme difficulty or unable to perform activity l. Walking a mile Extreme difficulty or unable to perform activity m. Going up or down 10 stairs (about 1 Moderate difficulty flight of stairs) n. Standing for 1 hour Extreme difficulty or unable to perform activity o. Sitting for 1 hour No difficulty p. Running on even ground Quite a bit of difficulty q. Running on uneven ground Extreme difficulty or unable to perform activity r. Making sharp turns while running fast Extreme difficulty or unable to perform activity s. Hopping Extreme difficulty or unable to perform activity t. Rolling over in bed No difficulty LEFI Score Lower Extremity Functional Index Score 36 Rehab Re-assessment Subjective Subjective Pt reports continued L>R knee pain that gradually increases with weightbearing activities. Pt reports she is able to walk further now before onset of pain; however, continues to have 10/10 pain at worst. Pt reports she returns to her surgeon in November to discuss possible knee replacement surgery. Pt reports she would like to continue exercises independently until then. Objective Objective Notes R knee AROM: 0-122 L knee AROM: 0-120 LE MMT: 4+/5 grossly Assessment Progress Assessment Progressing as Expected Assessment Notes Pt has attended 6 PT visits for bilateral knee pain. Treatment sessions have consisted of aerobic exercise, knee mobility, LE stretching/ strengthening, balance/ proprioception training and HEP with good tolerance. Pt demonstrated improved knee AROM, LE strength, and LEFS score this date compared to the initial evaluation. Pt continues to report severe knee pain with prolonged weightbearing activities rated 10/10 at worst. Pt is scheduled to see her orthopedic doctor to discuss knee replacement surgery in November. Pt has met most goals with exception of pain and walking tolerance and is appropriate to discharge to independent [facility] at this time. Patient goals met ST/2 LT/6 Goals Not Met p! at worst, walking tolerance , LEFS Revised Goals n/a Plan Plan Discharge to independent HEP Time and Billing Re-Eval Time 10 Re-Eval Billing Units 1 PHYSICIAN CERTIFICATION: I certify the specified therapy services for Italia Maravilla are required, authorized, and reviewed every 30 days.
== END 2023-10-20 10:10 | disposition home or self-care (01) ==
LOC: PT 09:00
PROVIDERS: PCP Internal Medicine Adolescent Medicine; Visit Provider Orthopaedic Surgery
DX: M25.562 Pain in left knee (principal); M25.561 Pain in right knee
CPT/HCPCS: 97010; 97014; 97110; 97163; 97164; 97530; G0283

== ENCOUNTER 2023-10-20 09:00 | Outpatient (RCR) | payer MEDICARE, OTHER, SELFPAY ==
--- NOTE | 2023-08-20 11:57 | HMH.PTOPEV ---
PT Outpatient Evaluation Rehab PT Outpatient Evaluation Start: 08/20/23 10:49 Freq: Status: Active Protocol: Document 08/20/23 11:38 DEXTER (Rec: 08/20/23 11:57 DEXTER [id number]) E-signed By Prosper Govea, PT Outpatient Therapy Subjective History Subjective History Pt presents s/p left foot lapidus bunionectomy, 2-3rd tarsometatarsal jt arthrodesis , 1st MPJ arthrodesis sx. on 06/25/23. Pt reports h/o chronic left foot pain for ~5 yrs leading up to this procedure. Pt reports post-op swelling, some slow incision healing, redness with whiteness through tips of all the toes, stiffness, pain, and weakness. Pt reports however, progressions with wt.bearing in LLE, and improvements in ROM over the last couple weeks . New diagnosis of cancer in past 12 No months? Chief Complaint Pain,Stiff,Swelling, Paresthesia,Weakness Symptom Type Ache,Sharp,Dull,Numbness, Tingling Symptoms Relieved By Rest/Positioning,Ice Symptoms Aggravated By Standing,Walking Prior Functional Limitations Housework,Standing,Walking, Stairs Current Functional Limitations Housework,Standing,Walking, Stairs Symptom Description Constant but Variable Level of pain today (0-10) 2 Pain scale - at its best (0-10) 0 Pain scale - at its worst (0-10) 7 Ankle/Foot Eval Gait Observation General Gait Pattern Observation Antalgic Gait,Decrease Weight Bear (L) Assistive Device Ambulation Assistive Device Rolling Walker Palpation Tenderness left Ankle/Foot Palpation Findings Tenderness Ankle/Foot Palpation Overall Comment 1st ray 2-3/4 ROM Ankle/Foot Dorsiflexion w/Knee Extended 0 Active Range Motion (degrees) Ankle/Foot Plantar Flexion Active Range 0-50 of Motion (degrees) Ankle/Foot Eversion Active Range of 0-20 Motion (degrees) Ankle/Foot Inversion Active Range of 0-40 Motion (degrees) Ankle/Foot ROM Limitations Soft Tissue Tightness MMT Ankle Dorsiflexion Strength Grade 4 Good Ankle Plantarflexion Strength Grade 4- Good- Foot Eversion Strength Grade 4- Good- Foot Inversion Strength Grade 4- Good- Lower Extremity Functional Index Activities Today, do you or would you have any difficulty at all with: a.Any of your usual work, housework or Quite a bit of difficulty school activities b. Your usual hobbies, recreational or Extreme difficulty or unable sporting activities to perform activity c. Getting into or out of the bath Moderate difficulty d. Walking between rooms Moderate difficulty e. Putting on your shoes or socks A little bit of difficulty f. Squatting Quite a bit of difficulty g. Lifting an object, like a bag of Quite a bit of difficulty groceries from the floor h. Performing light activities around Quite a bit of difficulty your home i. Performing heavy activities around Moderate difficulty your home j. Getting into or out of a car Moderate difficulty k. Walking 2 blocks Extreme difficulty or unable to perform activity l. Walking a mile Extreme difficulty or unable to perform activity m. Going up or down 10 stairs (about 1 Extreme difficulty or unable flight of stairs) to perform activity n. Standing for 1 hour Quite a bit of difficulty o. Sitting for 1 hour No difficulty p. Running on even ground Extreme difficulty or unable to perform activity q. Running on uneven ground Extreme difficulty or unable to perform activity r. Making sharp turns while running fast Extreme difficulty or unable to perform activity s. Hopping Extreme difficulty or unable to perform activity t. Rolling over in bed No difficulty LEFI Score Lower Extremity Functional Index Score 24 Outpatient Therapy Assessment Impairments Problems/Impairmments Palpation Tenderness,Impaired Range of Motion,Impaired Strength,Impaired Gait Pattern ,Impaired Walking,Impaired Standing,Impaired Household Care,Impaired Stair Climbing, Increased Edema,Subjective C/O Pain,Impaired Self Care/Self Management Prognosis Rehab Potential Good Clinical Impression Consistent with Diagnosis Yes Short Term Goals Number of Weeks 4 Decreased Palpation Tenderness Yes: 1-2/4 left foot Increase Range of Motion Yes: 50-75% of WFL LEFT ANKLE Increase Strength Yes: 4/5 LEFT ANKLE Improve Gait Pattern with Assistive Yes: WFL Device Increase Ability to Walk Yes: 15MIN Increase Ability to Stand Yes: 15MIN Improve LEFI Score Yes: 40-45 Decrease Edema Yes: 50% IMPROVEMENT L FIG 8 Decrease Subjective C/O Pain Yes: 3-4/10 W/ABOVE ACTIVITIES Patient to be Ind w/ HEP Yes [employer] Goals Number of Weeks 8-12 Decreased Palpation Tenderness Yes: 0-1/4 LEFT ANKLE/FOOT Increase Range of Motion Yes: WFLMLEFT FOOT AND ANKLE Increase Strength Yes: 4+-5/5 LEFT ANKLE AND FOOT Improve Gait Pattern without Assistive Yes: WFL ON LEVEL TERRAIN Device Increase Ability to Walk Yes: 30MIN Increase Ability to Stand Yes: 30MIN Improve Ability For Household Care Yes: WFL Improve Ability to Climb Stairs Yes: WFL Improve LEFI Score Yes: 60-70 Decrease Edema Yes: WFL LEFT FOOT/ANKLE Decrease Subjective C/O Pain Yes: 0-2/10 W/ABOVE ACTIVITIES Patient to be Ind w/ Advanced HEP Yes Outpatient Therapy Plan of Care Treatment Plan May Include Therapeutic Exercise Including Home Yes Exercise Program Manual Therapy Techniques Yes Neuromuscular Re-education Yes Therapeutic Activities to Return to Yes Previous Functional/Work Level Gait Training Yes ADL/Self Care Education Yes Dry Needling Yes Thermal Modalities Yes Electrical Stimulation Yes Ultrasound/Phonophoresis Yes Iontophoresis Yes Parrafin Yes Orthotics/Bracing/Splinting Yes Vasopneumatic Compression Pump Yes Manual Lymphatic Drainage Yes Eval/Re-Eval Yes Frequency Times per week 2-3 Duration Number of Weeks 8-12 Addendums This patient is a candidate for social No or vocational rehab? Patient/Guardian verbally acknowledges Yes understanding of treatment program and consents to further treatment? Patient/Guardian verbally acknowledges Yes understanding of diagnosis, prognosis and goals for treatment? Eval Complexity PT Charges 68472 - Moderate Complexity Shoulder/Elbow Eval Shoulder Objective Measurements Elbow Objective Measurements PHYSICIAN CERTIFICATION: I certify the specified therapy services for Italia Maravilla are required, authorized, and reviewed every 30 days.
--- NOTE | 2023-09-23 15:58 | HMH.RHREAS ---
Rehab Reassessment Rehab OP Re-assessment Start: 08/20/23 10:49 Freq: Status: Active Protocol: Document 09/23/23 15:45 DEXTER (Rec: 09/23/23 15:58 DEXTER [id number]) E-signed By Prosper Govea, PT Rehab Re-assessment Subjective Subjective Pt reports improved left foot and ankle ROM since I eval, and reports 0/10 left foot pain this pm on VAS and 3/10 left ankle (anterior jt line) pain on VAS. Objective Objective Notes AROM:LEFT ANKLE DF 0-4, L PF 0 -55, L INV 0-45, L EVR 0-22 MMT: LEFT ANKLE DF 4-4+/5, L PF 4/5, L INV 4-4+/5, L EVR 4/ 5 TTP: SX. INCISION LEFT FOOT 0- 1/4, L 1ST RAY 1/4 GAIT: MILDLY ANTALGIC ON LEVEL TERRAIN W/QC Assessment Progress Assessment Progressing as Expected Assessment Notes SIGNIFICANTLY IMPROVED LEFT ANKLE ROM, TTP, AND STRENGTH, WELL GAIT PATTERN Patient goals met STG'S 02/03 LTG'S 12/06 Goals Not Met STG'S 10/04, LTG'S 02/05 Plan Plan Pt to continue w/skilled P.T. to make further improvements in ROM, strength, TTP, and gait to allow for optimal function Frequency of Therapy 1-2x/wk Duration of therapy 4-6wks Time and Billing Re-Eval Time 12 Re-Eval Billing Units 1 PHYSICIAN CERTIFICATION: I certify the specified therapy services for Italia Maravilla are required, authorized, and reviewed every 30 days.
== END 2023-10-20 09:05 | disposition home or self-care (01) ==
LOC: PT 09:00
PROVIDERS: PCP Internal Medicine Adolescent Medicine; Visit Provider Podiatrist
DX: M79.672 Pain in left foot (principal); Z98.890 Other specified postprocedural states; T81.49XA Infection following a procedure, other surgical site, initial encounter
CPT/HCPCS: 97010; 97014; 97016; 97110; 97112; 97140; 97163; 97164; 97530; G0283

== ENCOUNTER 2023-12-04 11:17 | Outpatient (CLI) | payer MEDICARE, OTHER, SELFPAY ==
--- NOTE | 2023-12-04 11:23 | XR_ITS ---
FINAL REPORT CLINICAL HISTORY: Left foot pain COMPARISON: None FINDINGS: LEFT FOOT: Three views of the left foot were obtained. There are postoperative changes of the 1st digit and midfoot with multiple screw plates and screws. There is no acute fracture or dislocation. Bony alignment is normal. There is mild degenerative change. A plantar calcaneal spur is noted. There is no soft tissue abnormality. IMPRESSION: Postoperative and degenerative changes without acute bony abnormality. Plantar calcaneal spur. Reviewed, Interpreted and Dictated by David Medina III, MD Transcribed by Nuha Hall Authenticated and [facility]
== END 2023-12-04 23:59 | disposition home or self-care (01) ==
LOC: RAD 11:19
PROVIDERS: PCP Internal Medicine Adolescent Medicine; Visit Provider Podiatrist
DX: Z98.890 Other specified postprocedural states (principal); M79.672 Pain in left foot
CPT/HCPCS: 73630

== ENCOUNTER 2024-06-14 10:13 | Outpatient (CLI) | payer MEDICARE, OTHER, SELFPAY ==
--- NOTE | 2024-06-14 10:19 | XR_ITS ---
FINAL REPORT CLINICAL HISTORY: 1 yr post op foot surgery to remove bunions COMPARISON: 12/04/2023 FINDINGS: LEFT FOOT Three views of the left foot demonstrate no acute fracture or dislocation. There is a sideplate and screws bridging the first metatarsal phalangeal joint, and other side plates and screws bridging the first, second, and third tarsal metatarsal joints. A large plantar calcaneal spur is noted. No significant changes noted since the prior exam. The soft tissues are unremarkable. IMPRESSION: Postoperative changes of the left foot as described above, without significant change since the most recent examination of November. Reviewed, Interpreted and Dictated by Kristian Spear MD Transcribed by Maria T Leroy Authenticated and [facility]
== END 2024-06-14 23:59 | disposition home or self-care (01) ==
LOC: RAD 10:16
PROVIDERS: PCP Internal Medicine Adolescent Medicine; Visit Provider Nurse Practitioner
DX: M79.672 Pain in left foot (principal); Z98.890 Other specified postprocedural states
CPT/HCPCS: 73630

== ENCOUNTER 2024-09-09 13:50 | Outpatient (RCR) | payer MEDICARE, OTHER, SELFPAY ==
--- NOTE | 2024-09-09 16:11 | HMH.PTOPEV ---
PT Outpatient Evaluation Rehab PT Outpatient Evaluation Start: 09/09/24 14:03 Freq: Status: Active Protocol: Document 09/09/24 15:57 PHORNE (Rec: 09/09/24 16:08 PHORNE [id number]) E-signed By Jony Benítez, PT Outpatient Therapy Subjective History Subjective History This is the initial PT eval for Italia Maravilla, 69 yowf who presents with c/o symptoms of vertigo x ~ 3 mos overall. She reports having a prior episode of similar symptoms many years ago which were resolved with treatment. She reports no c/o nausea related and symptoms are positional in nature, occurring when she lays on her R side. She reports acute onset and short duration of her vertigo, lasting ~ 15-30 sec. She reports PMH of HTN. Chief Complaint Other Balance Eval Nystagmus Nystagmus Presence Positional Nystagmus Description Geotropic,Latency - Immediate Oculomotor Gaze Oculomotor Gaze Nml: Vergence Smooth Pursuit Saccades VOR Cancellation Cover/Uncover Cross Cover Miscellaneous Dx PT Eval Objective Objective [place]-Hallpike testing performed and pt exhibits R torsional and up-beating nystagmus with testing on the R side. Outpatient Therapy Assessment Impairments Problems/Impairmments Impaired Self Care/Self Management Prognosis Rehab Potential Good Comment Symptoms suggestive of R side ASC cnalithiasis BPPV. Clinical Impression Consistent with Diagnosis Yes Short Term Goals Number of Weeks 2 Improve Self Care/Self Management Yes: Minimal vertigo symotims with laying on her R side. Hand Molder And Caster Goals Number of Weeks 4 Improve Self Care/Self Management Yes: No vertigo symptoms when laying on her R side. Patient to be Ind w/ HEP Yes Outpatient Therapy Plan of Care Treatment Plan May Include Therapeutic Exercise Including Home Yes Exercise Program Manual Therapy Techniques Yes Neuromuscular Re-education Yes Therapeutic Activities to Return to Yes Previous Functional/Work Level ADL/Self Care Education Yes Eval/Re-Eval Yes Frequency Times per week 1 Duration Number of Weeks 4 Addendums This patient is a candidate for social No or vocational rehab? Patient/Guardian verbally acknowledges Yes understanding of treatment program and consents to further treatment? Patient/Guardian verbally acknowledges Yes understanding of diagnosis, prognosis and goals for treatment? Eval Complexity PT Charges 67197 - High Complexity Shoulder/Elbow Eval Shoulder Objective Measurements Elbow Objective Measurements PHYSICIAN CERTIFICATION: I certify the specified therapy services for Italia C Maravilla are required, authorized, and reviewed every 30 days.
== END 2024-09-09 23:59 | disposition home or self-care (01) ==
LOC: PT 13:50
PROVIDERS: Visit Provider Physician Assistant
DX: R42 Dizziness and giddiness (principal)
CPT/HCPCS: 95992; 97163

== ENCOUNTER 2024-11-02 10:40 | Outpatient (RCR) | payer MEDICARE, OTHER, SELFPAY ==
--- NOTE | 2024-11-02 17:33 | HMH.PTOPEV ---
PT Outpatient Evaluation Rehab PT Outpatient Evaluation Start: 11/02/24 17:20 Freq: Status: Active Protocol: Document 11/02/24 17:21 PHORNE (Rec: 11/02/24 17:33 PHORNE [id number]) E-signed By Jony Benítez, PT Outpatient Therapy Subjective History Subjective History This is the initial PT eval for Italia Maravilla, 69 yowf who presents with c/o symptoms of vertigo x ~ 5 mos overall, but increased after most recent treatment x ~ 2-3 wks. She reports having a prior episode of similar symptoms many years ago which were resolved with treatment. She reports no c/o nausea related and symptoms are positional in nature, occurring when she lays on her R side. She reports acute onset and short duration of her vertigo, lasting ~ 15-30 sec. She reports PMH of HTN. New diagnosis of cancer in past 12 No months? Chief Complaint Other Symptoms Relieved By Rest/Positioning Symptoms Aggravated By Physical Activity Prior Functional Limitations None Current Functional Limitations Sleeping,Recreation Activity Symptom Description Activity Dependent Pain scale - at its worst (0-10) 0 Balance Eval Hx of Falls Hx Falls Yes Number in last 6 months 1 Gait/Posture Asssessment General Gait Observation No Deviations/Normal Nystagmus Nystagmus Presence Positional Nystagmus Description Geotropic,Right Torsion Oculomotor Gaze Oculomotor Gaze Nml: Vergence Smooth Pursuit Saccades VOR Cancellation Cover/Uncover Cross Cover Miscellaneous Dx PT Eval Objective Objective [place]-Hallpike testing revealed R side positive for up-beating and R torsional nystagmus. All occulomotor testing was normal for age range. Outpatient Therapy Assessment Impairments Problems/Impairmments Impaired Balance,Impaired Self Care/Self Management Prognosis Rehab Potential Good Comment Signs and symptoms consistent with BPPV of the R side PSC. Skilled therapy is indicated to reduce vertigo symptoms in order to return pt to PLOF. Clinical Impression Consistent with Diagnosis Yes Additional details: Plan of care: Pt will be treated for BPPV via Canalith Repositioning Technique as indicated. Short Term Goals Number of Weeks 2 Improve Self Care/Self Management Yes: Minimal vertigo with lying supine. Clay Mixer Goals Number of Weeks 4 Improve Self Care/Self Management Yes: No vertigo with any position Patient to be Ind w/ HEP Yes Outpatient Therapy Plan of Care Treatment Plan May Include Therapeutic Exercise Including Home Yes Exercise Program Manual Therapy Techniques Yes: Canalith repositioning technique specifically Eval/Re-Eval Yes Frequency Times per week 1 Duration Number of Weeks 4 Addendums This patient is a candidate for social No or vocational rehab? Patient/Guardian verbally acknowledges Yes understanding of treatment program and consents to further treatment? Patient/Guardian verbally acknowledges Yes understanding of diagnosis, prognosis and goals for treatment? Eval Complexity PT Charges 09349 - High Complexity Shoulder/Elbow Eval Shoulder Objective Measurements Elbow Objective Measurements PHYSICIAN CERTIFICATION: I certify the specified therapy services for Italia Maravilla are required, authorized, and reviewed every 30 days.
== END 2024-11-02 23:59 | disposition home or self-care (01) ==
LOC: PT 10:40
PROVIDERS: PCP Internal Medicine Adolescent Medicine; Visit Provider Internal Medicine Adolescent Medicine
DX: R42 Dizziness and giddiness (principal)
CPT/HCPCS: 95992; 97110; 97163

== ENCOUNTER 2024-11-04 10:41 | Outpatient (CLI) | payer MEDICARE, OTHER, SELFPAY | END 2024-11-04 23:59 | disposition home or self-care (01) | LOC: RT 10:42 | PROVIDERS: PCP Internal Medicine Adolescent Medicine; Visit Provider Physician Assistant | DX: R55 Syncope and collapse (principal); I10 Essential (primary) hypertension; R94.31 Abnormal electrocardiogram [ECG] [EKG] | CPT/HCPCS: 93270 ==

== ENCOUNTER 2024-11-18 06:48 | Outpatient (CLI) | payer MEDICARE, OTHER, SELFPAY ==
--- NOTE | 2024-11-18 | CA_ITS ---
APPROVED REPORT Exam: Pharmacologic Technologist: Brittany Matthews Ht: 5 ft 1 in Wt: 164 lbs BSA: 1.74 m2 HR: 54 bpm BP: 112/76 mmHg Rhythm: NSR Medical History Medical History: HTN Medications: Calcium, Vit D3, Diclofenac sodium, Famotidine, Ibuprofen, Rosuvastatin Allergies: Cephalexin Cardiac Risk Factors: HTN Stress Test Details Test: Lexiscan HR Resting HR: 54 bpm Max Heart Rate (APMHR): 152 bpm Max HR Achieved: 92 bpm Target HR (85% APMHR): 129 bpm % of APMHR: 61 Recovery HR: 55 bpm BP Resting BP: 112.0/76.0 mmHg Max BP: 145.0/73.0 mmHg Recovery BP: 138.0/63.0 mmHg BP response to stress: Normal blood pressure response to stress. ECG Resting ECG: NSR Clinical Exercise duration: 4:00 min Stress ECG Conclusion Pt had no symptoms No significant ST changes. Lexiscan infusion. Electronically signed by : Juliana Palomo MD 11/18/2024 12:39:33
--- NOTE | 2024-11-18 07:00 | NM_ITS ---
APPROVED REPORT Exam: Nuclear Stress Test Indication: palpaitations..syncope..fatigue Patient Location: Outpatient Stress Tech: Brittany Matthews PA Tech:Naida PerlaringtonROSI RT(R)(N) Ht: 5 ft 1 in Wt: 165 lbs Bra Size: 40c HR: 45 bpm BP: 112/76 mmHg BSA: 1.74 m2 TID: 0.93 BMI: 31.1 History: palpaitations..syncope..fatigue Procedure: Patient received 0.4 mg of intravenous Lexiscan, resting heart rate 45 bpm, resting blood pressure 112/76 mmHg, with Lexiscan maximum heart rate achieved was 92 bpm which is 85 % of the maximum predicted heart rate and blood pressure was 145/73 mmHg. With Lexiscan, patient denied any complaint of chest pain. Cardiac Stress and Resting SPECT Images: Cardiac Stress and Resting SPECT images were obtained using technetium 99m Myoview 30.0 mCi stress and 9.99 mCi at rest. Resting and stress imaging in supine and prone positions demonstrate no evidence of fixed or reversible perfusion defects. Gated imaging demonstrates normal global and regional LV systolic function. LVEF is calculated at 75%. Conclusion: No evidence of fixed or reversible perfusion defects. Gated imaging demonstrates normal global and regional LV systolic function. LVEF is calculated at 75%. Electronically signed by : Juliana Palomo MD 11/18/2024 10:35:48
--- NOTE | 2024-11-18 07:49 | CA_ITS ---
APPROVED REPORT EXAM: Comprehensive 2D, Doppler, and color-flow Echocardiogram Masonry Instructor: Molly Chaves, RCS, RVS Ht: 5 ft 1 in Wt: 164lbs BSA: 1.74 BP: 170/60 mmHg Indications: Pre-op, Syncope, ABN EKG, DM, HTN, Left renal cancer 2D Dimensions Aortic Root 2.72 cm LA Volume 46.70 mL Left Atrium 3.75 cm LA Volume Index 26.80 mL/m2 (M/F) 16-34 RVID Base (AP4) 2.28 cm (M/F) 2.5-4.1 EF AP4 53.10 % LVOT 1.76 cm (M/F) 1.5-2.5 GL Strain -13.0 % M-Mode Dimensions RVDd 2.71 cm (0.9-2.6) LVDd 4.69 cm (3.5-5.7) Ao Diam 2.78 cm (2.0-3.7) LVDs 2.63 cm (3.5-5.7) IVSd 0.80 cm (0.6-1.1) PWd 0.69 cm (0.6-1.1) EF (Teich) 75.20% EPSs 0.34 cm FS 43.90% EDV (Teich) 101.90 mL TAPSE 2.01 (<1.7) ESV (Teich) 25.30 mL LV Diastology E Decel Time 206 (160-240 msec) E/A Ratio 0.84 MED E' 7.6 (>= 7 cm/sec) MED A' 10.60 cm/s E'/MED E' Ratio 10.11 (<= 14) LAT E' 7.2 (>= 10 cm/sec) LAT A' 8.70 cm/s E/LAT E' Ratio 10.67 (<= 14) Aortic Valve LVOT Max 86.0 (70-110 cm/s) VARNU Index 1.05 cm2/m2 LVOT VTI 20.58 cm AoV Peak Karthik. 125.0 (50-130 cm/s) AO Mean GR. 3.10 (<5 mmHg) AO VTI 27.3 (18-25 cm) VARUN (VTI) 1.83 (2.5-4.5 cm2) Mitral Valve MV E Max Karthik. 77.0 (40-130 cm/s) MV A Velocity 91.0 (40-130 cm/s) E/A Ratio 0.84 MV Decel. Time 206 (160-240 ms) Tricuspid Valve TR P. Velocity 224.00 cm/s RAP Estimate 10.00 mmHg RVSP 30.00 mmHg Left Ventricle The left ventricle is normal size. The left ventricular systolic function is normal. The left ventricular ejection fraction is within the normal range. There is increased LV wall thickness. There is normal LV segmental wall motion. The left ventricular diastolic function is normal. LVEF is 55%. Right Ventricle Right ventricle is mildly dilated. The right ventricular systolic function is normal. Atria Left atrium is mildly dilated. Right atrium is mildly dilated. The interatrial septum is not well-visualized. Aortic Valve The aortic valve opens well. There is no aortic valvular stenosis. No aortic regurgitation is present. Mitral Valve The mitral valve is normal in structure. No evidence of mitral valve stenosis. Trace mitral regurgitation. Tricuspid Valve Tricuspid valve is grossly normal in structure and function. Trace tricuspid regurgitation. There is insufficient TR jet to estimate RVSP. Pulmonic Valve The pulmonary valve is normal in structure. Trace pulmonic regurgitation. Great Vessels The aortic root is normal in size. IVC is normal in size and collapses >50% with inspiration. Pericardium There is no pericardial effusion. Other Information Study Quality: Fair Conclusion Normal biventricular systolic function. Mild RV dilation. Mild LA dilation. No significant valvular stenosis or regurgitation. Electronically signed by : Juliana Palomo MD 11/18/2024 11:44:16
[2024-11-18] MEDS: REGADENOSON 0.4MG/5ML SYRINGE 0.4 MG IV (09:16)
[2024-11-18] MEDS: ISOTOPE MYOVIEW (PER STUDY) 1 DOSE IV (09:16)
[2024-11-18] MEDS: SODIUM CHLORIDE 0.9% 10ML SYR (RAD ONLY) 10 ML IV ×2 (09:16→09:17)
--- NOTE | 2024-11-18 10:30 | CA_ITS ---
FINAL REPORT TECHNIQUE: Color Doppler, duplex Doppler and flores scale sonography of the bilateral neck arterial vasculature was performed. Velocities were measured in the carotid arteries. Stenosis evaluation based on the validated velocity criteria. CLINICAL HISTORY: DIZZINESS,SYNCOPE,HTN FINDINGS: The peak systolic velocity of the right common carotid artery is 77 cm/s. The peak systolic velocity of the right internal carotid artery is 93 cm/s and end diastolic velocity 37 cm/s. The ICA/CCA ratio is 1.3. No significant plaque is present. The right external carotid artery is patent. The right vertebral artery is patent with antegrade flow. The peak systolic velocity of the left common carotid artery is 70 cm/s. The peak systolic velocity of the left internal carotid artery is 76 cm/s and end diastolic velocity 29 cm/s. The ICA/CCA ratio is 1.2. No significant plaque is present. The left external carotid artery is patent.The left vertebral artery is patent with antegrade flow. IMPRESSION: Less than 50% bilateral carotid stenoses. Bilateral patent vertebral arteries with antegrade flow. If indicated, CTA or MRA could further evaluate. Reviewed, Interpreted and Dictated by Yarelis Ho MD Transcribed by Latesha Simeon Authenticated and . [facility]
== END 2024-11-18 23:59 | disposition home or self-care (01) ==
LOC: RAD 06:49
PROVIDERS: PCP Internal Medicine Adolescent Medicine; Visit Provider Physician Assistant
DX: Z01.810 Encounter for preprocedural cardiovascular examination (principal); I51.7 Cardiomegaly; R94.31 Abnormal electrocardiogram [ECG] [EKG]; R55 Syncope and collapse; R42 Dizziness and giddiness
CPT/HCPCS: 78452; 93017; 93018; 93306; 93880; A9502; J2785

== ENCOUNTER 2024-12-24 13:00 | Outpatient (RCR) | payer MEDICARE, OTHER, SELFPAY | END 2024-12-24 23:59 | disposition home or self-care (01) | LOC: PT 13:00 | PROVIDERS: PCP Internal Medicine Adolescent Medicine; Visit Provider Orthopaedic Surgery Adult Reconstructive Orthopaedic Surgery | DX: M17.11 Unilateral primary osteoarthritis, right knee (principal) | CPT/HCPCS: 97016; 97110; 97140; 97163; 97530 ==

== ENCOUNTER 2025-01-06 11:00 | Outpatient (RCR) | payer MEDICARE, OTHER, SELFPAY | END 2025-01-06 23:59 | disposition home or self-care (01) | LOC: PT 11:00 | PROVIDERS: PCP Internal Medicine Adolescent Medicine; Visit Provider Orthopaedic Surgery Adult Reconstructive Orthopaedic Surgery | DX: M17.11 Unilateral primary osteoarthritis, right knee (principal) | CPT/HCPCS: 97110; 97530 ==

== ENCOUNTER 2025-01-20 08:17 | Outpatient (CLI) | payer MEDICARE, OTHER, SELFPAY ==
--- OUTSIDE RECORDS SUMMARY | 2024-11-23 07:19 | XMS_ITS | Encounter Summary ---
Author Organization Healthcare Address [address] [place] [address] Care Team Providers Care Mail Processing Associate Name Role Phone Siva Swann MD Primary Care Provider [phone] Reason for Referral * Consultation (Routine) - Authorized Specialty Diagnoses / Procedures Referred By Johnathon murrieta Referred To Contact Physical Therapy Diagnoses Primary osteoarthritis of right knee Anthony Abraham MD [address] [place] [id number] Phone: tel: fax: Referral ID Status Reason Start Date Expiration Date Visits Requested Visits Authorized [id number] Authorized Specialty Services Required 11/24/2024 05/26/2026 1 1 Reason for Visit * Auth/Cert (Routine) Specialty Diagnoses / Procedures Referred By Johnathon murrieta Referred To Contact Diagnoses Primary osteoarthritis of knees, bilateral Primary osteoarthritis of knees, bilateral [M17.0] Procedures NM TOTAL KNEE ARTHROPLASTY ARTHROPLASTY, KNEE, TOTAL Anthony Abraham MD [address] [place] [address] Phone: tel: fax: [facility] Operating Room [address] [place] [address] Phone: tel: Referral ID Status Reason Start Date Expiration Date Visits Re quested Visits Authorized [id number] 1 1 Encounter Details Date Type Department Care Team (Latest Contact Info) Description 11/23/2024 7:19 AM EDT - 11/24/2024 1:21 PM EDT Hospital Encounter [facility] [address] [place] [address] Anthony Abraham MD [address] [place] [address] Primary osteoarthritis of right knee (Primary Dx) Discharge Disposition: Home or Self Care Social History Tobacco Use Types Packs/Day Years Used Date Smoking Tobacco: Never Smokeless Tobacco: Never Alcohol Use Standard Drinks/Week Comments No 0 (1 standard drink = 0.6 oz pure alcohol) Alcoholic Drinks/day: Never Drank Alcohol PHQ-2 Answer Date Recorded Patient Health Questionnaire-2 Score 0 02/24/2024 PHQ-2A Answer Date Recorded Patient Health Questionnaire-2 Score 0 01/06/2023 Comments No Sex and Gender Information Value Date Recorded Sex Assigned at Not on file Legal Sex Female 7:26 PM EDT Gender Identity Not on file Sexual Orientation Not on file documented as of this encounter Last Filed Vital Signs Vital Sign Reading Time Taken Comments Blood Pressure 115/70 11/24/2024 12:16 PM EDT Pulse 60 11/24/2024 12:16 PM EDT Temperature 36.4 C (97.5 F) 11/24/2024 12:16 PM EDT Respiratory Rate 16 11/24/2024 12:16 PM EDT Oxygen Saturation 95% 11/24/2024 12:16 PM EDT Inhaled Oxygen Concentration - - Weight 75.3 kg (166 lb) 11/23/2024 8:38 AM EDT Height 154.9 cm (5' 1 ) 11/23/2024 8:38 AM EDT Body Mass Index 31.37 11/23/2024 8:38 AM EDT documented in this encounter Functional Status * Calculated C-SSRS Risk Score (Lifetime/Recent) Answer Date of Assessment Author No Risk Indicated 11/24/2024 8:00 AM EDT Linda Roberson * Question Answer Date of Assessment Author 1. Wish to be (Past 1 Month) No 025 8:00 AM EDT Linda Roberson 2. Non-Specific Active Suici shanika Thoughts (Past 1 Month) No 11/24/2024 8:00 AM EDT Linda Roberson 6. Suicidal Behavior (Lifetime) No 8:00 AM EDT Linda Roberson documented as of this encounter Discharge Instructions * Discharge Instructions* De Perez MD - 11/24/2024 9:38 AM EDT Essential hypertension --> check your blood pressure daily --> once her systolic blood pressure (top number) is greater than 120, you can resume your irbesartan-hydrochlorothiazide Your incision was closed with Dermabond Prineo and covered with a dressing and juan wrap. You may remove the dressing and juan wrap in 2 days. The prineo tape will remain in place until your follow-up appointment or will fall off on its own. Do not remove the Prineo tape yourself. You may shower withthis on, but do not soak your incision in water. Do not put any topical ointments or creams on the incision. Call the clinic with any drainage or concerns. 1. You will be on Eliquis 2.5mg twice daily for 28 days for deep vein thrombosis prevention. It is important that you complete all 28 days of your medication. 2. Please see your discharge medication list for the post-operative medications you have been given. Call the clinic with any questions or concerns. 3. You have been given Docusate Sodium to take daily to prevent constipation while taking narcotic pain medications. Take this as long as you are taking narcotics. You can also begin Miralax daily and continue until you have weaned off narcotic pain medications. If you have had no bowel movement onpost-op day #3 you need to take Milk of Magnesia as directed over the counter. Then if no bowel movement by post-op day #5 you need to use a Dulcolax Suppository over the counter as directed. If still no bowel movement at that time your need to call the clinic. documented in this encounter Medications at Time of Discharge acetaminophen (Tylenol 8 Hour) 650 MG ER tablet Take 1 tablet by mouth every 8 hours as needed for mild pain. Do not crush, chew, or split. acetaminophen (Tylenol Extra Strength) 500 MG tablet Take 2 tablets by mouth every 8 hours. 100 tablet 11/24/2024 apixaban (Eliquis) 2.5 MG tablet Take 1 tablet by mouth 2 times a day. For 4 weeks post-op for blood clot prevention 56 tablet 11/24/2024 Calcium Carbonate-Vitamin D 250-3.125 MG-MCG tablet Take by mouth. diclofenac (Voltaren) 75 MG EC tablet Take 1 tablet by mouth 2 times a day. 09/08/2017 estradiol (Estrace) 0.1 MG/GM vaginal cream Insert 2 g into the vagina 2 times a week. 11/03/2021 famotidine (Pepcid) 40 MG tablet Take 1 tablet by mouth every evening. 03/31/2020 fluticasone (Flonase) 50 MCG/ACT nasal spray Administer 2 sprays into each nostril as needed for allergies. 05/28/2024 irbesartan-hydroCHL OROthiazide (Avalide) 300-12.5 MG tablet Take 0.5 tablets by mouth daily. Only takes 1/2 pill 11/17/2021 nutritional drink (Boost Plus) liquid liquid Twice daily Disp 1 case 237 mL 11/24/2024 oxyCODONE (Roxicodone) 5 MG immediate release tablet Take 1 tablet by mouth every 6 hours as needed for moderate pain or severe pain. 50 tablet 11/23/2024 oxyCODONE (Roxicodone) 5 MG immediate release tablet Take 1 tablet by mouth every 6 hours as needed for moderate pain or severe pain. 50 tablet 11/24/2024 rosuvastatin (Crestor) 20 MG tablet Take 1 tablet by mouth daily. 11/09/2021 VITAMIN D PO Take 400 Int'l Units/day by mouth daily. docusate sodium (Colace) 250 MG capsule Take 1 capsule by mouth 2 times a day. 60 capsule 11/24/2024 5 meloxicam (Mobic) 15 MG tablet Take 1 tablet by mouth daily. For 4 weeks post-op 30 tablet 11/24/2024 omeprazole (PriLOSEC) [address] capsule Take 1 capsule by mouth daily for 28 days. Do not crush or chew. 28 capsule 11/24/2024 5 ondansetron ODT (Zofran-ODT) 4 MG disintegrating tablet Dissolve 1 tablet on the tongue every 8 hours as needed for nausea or vomiting for up to 7 days. 20 tablet 11/24/2024 5 gabapentin (Neurontin) 100 MG capsule Take 1 capsule by mouth 3 times a day. If this medication makes you drowsy you may take it only at bedtime 30 capsule 11/24/2024 5 traMADol (Ultram) 50 MG tablet Take 1 or 2 tablets every 4-6 hours as needed for moderate pain 56 tablet 11/24/2024 5 documented as of this encounter Miscellaneous Notes * Discharge Summary - De Perez MD - 11/24/2024 11:09 AM EDT Images from the original note were not included. Hospitalization Admit Date/Time: 11/23/2024 7:19 AM Admitting Attending: Anthony Abraham Discharge Date: 11/24/24 Discharge Attending Physician: Anthony Abraham MD PCP name and Address: Siva Swann MD [address] [place] [address] / [place] [address] Referring provider name and address: Siva Swann MD [address] [place] [address] [place] [address] Chief Concern, Brief History of Present Illness, and Hospital Course Patient arrived to [facility] on 11/23/24 for their scheduled surgery. Patient tolerated the procedure without complication, was extubated in the operating room, and transferred to the PACU for recovery from anesthesia. Shortly thereafter, patient was transferred to the acute care floorfor recovery. Patient's hospital course was without complications. Patient was given prophylactic antibiotics, pain was controlled on oral pain medications, and patient tolerated a regular diet. The patient was kept on DVT prophylaxis with SCD's. The patient was cleared to be discharged by PT/OT prior to discharge. The patient was discharged home. Surgeries and Procedures ARTHROPLASTY, KNEE, TOTAL (Right) Medication List PAUSE taking these medications * acetaminophen 650 MG ER tablet Wait to take this until your doctor or other care provider tells you to start again. Commonly known as: Tylenol 8 Hour Take 1 tablet by mouth every 8 hours as needed for mild pain. Do not crush, chew, or split. You also have another medication with the same name that you may need to continue taking. diclofenac 75 MG EC tablet Wait to take this until your doctor or other care provider tells you to start again. Commonly known as: Voltaren Take 1 tablet by mouth 2 times a day. * This list has 1 medication(s) that are the same as other medications prescribed for you. Read thedirections carefully, and ask your doctor or other care provider to review them with you. .. * acetaminophen 500 MG tablet Commonly known as: Tylenol Extra Strength Take 2 tablets by mouth every 8 hours. apixaban 2.5 MG tablet Commonly known as: Eliquis Take 1 tablet by mouth 2 times a day. For 4 weeks post-op for blood clot prevention Calcium Carbonate-Vitamin D 250-3.125 MG-MCG tablet Take by mouth. docusate sodium 250 MG capsule Commonly known as: Colace Take 1 capsule by mouth 2 times a day. estradiol 0.1 MG/GM vaginal cream Commonly known as: Estrace Insert 2 g into the vagina 2 times a week. famotidine 40 MG tablet Commonly known as: Pepcid Take 1 tablet by mouth every evening. fluticasone 50 MCG/ACT nasal spray Commonly known as: Flonase Administer 2 sprays into each nostril as needed for allergies. gabapentin 100 MG capsule Commonly known as: Neurontin Take 1 capsule by mouth 3 times a day. If this medication makes you drowsy you may take it only at bedtime irbesartan-hydroCHLOROthiazide 300-12.5 MG tablet Commonly known as: Avalide Take 0.5 tablets by mouth daily. Only takes 1/2 pill meloxicam 15 MG tablet Commonly known as: Mobic Take 1 tablet by mouth daily. For 4 weeks post-op nutritional drink liquid liquid Twice daily Disp 1 case omeprazole [address] capsule Commonly known as: PriLOSEC Take 1 capsule by mouth daily for 28 days. Do not crush or chew. ondansetron ODT 4 MG disintegrating tablet Commonly known as: Zofran-ODT Dissolve 1 tablet on the tongue every 8 hours as needed for nausea or vomiting for up to 7 days. * oxyCODONE 5 MG immediate release tablet Commonly known as: Roxicodone Take 1 tablet by mouth every 6 hours as needed for moderate pain or severe pain. * oxyCODONE 5 MG immediate release tablet Commonly known as: Roxicodone Take 1 tablet by mouth every 6 hours as needed for moderate pain or severe pain. rosuvastatin 20 MG tablet Commonly known as: Crestor Take 1 tablet by mouth daily. traMADol 50 MG tablet Commonly known as: Ultram Take 1 or 2 tablets every 4-6 hours as needed for moderate pain VITAMIN D PO Take 400 Int'l Units/day by mouth daily. * This list has 3 medication(s) that are the same as other medications prescribed for you. Read thedirections carefully, and ask your doctor or other care provider to review them with you. Where to Get Your Medications These medications were sent to [facility] [place] [address] acetaminophen 500 MG tablet apixaban 2.5 MG tablet docusate sodium 250 MG capsule gabapentin 100 MG capsule meloxicam 15 MG tablet nutritional drink liquid liquid omeprazole [address] capsule ondansetron ODT 4 MG disintegrating tablet oxyCODONE 5 MG immediate release tablet oxyCODONE 5 MG immediate release tablet traMADol 50 MG tablet Discharge Diagnosis Medical Problems Active and Resolved Hospital Problems Hospital Primary osteoarthritis of right knee * (Principal) Primary osteoarthritis of knees, bilateral Outpatient Follow-Up Future Appointments Date Time Provider Department Center 12/08/2024 10:00 AM Isaiah Anne PA [facility] 01/10/2025 10:10 AM [facility] Pertinent Physical Exam At Time of Discharge Physical Exam Physical Examination: No acute distress Non labored breathing Peripheral perfusion intact Focused Musculoskeletal Examination: RLE: Juan wrap and polar care in place Motor intact tib ant, gastroc, EHL/FHL SILT SP, DP, tibial, sural, saph dist Foot WWP Discharge Disposition/Condition Disposition: Home Condition: Stable (s/sx potential problems absent or manageable) I spent >30 minutes of patient care and instruction time in preparation for this discharge. Misael Perez MD Orthopaedic Surgery PGY-1 [facility] Orthopaedic Trauma Service Pager: [phone] Orthopaedic Recon/Spine/Foot and Ankle Service Pager: [phone] Personal Pager: [phone] Cosigned by Anthony Abraham MD at 11/25/2024 12:35 PM EDT * Care Plan - Linda Robesron - 11/24/2024 9:42 AM EDT Problem: Adult Inpatient Plan of Care Goal: Plan of Care Review Outcome: Ongoing, Progressing Flowsheets (Taken 11/23/2024 1339 by Latisha Gu RN) Plan of Care Reviewed With: patient Note: Patient will have tolerable pain level during shift. Goal: Patient-Specific Goal (Individualized) Outcome: Ongoing, Progressing Goal: Absence of Hospital-Acquired Illness or Injury Outcome: Ongoing, Progressing Goal: Optimal Comfort and Wellbeing Outcome: Ongoing, Progressing Goal: Readiness for Transition of Care Outcome: Ongoing, Progressing * Progress Notes - Pradip Damon APRN - 11/24/2024 9:28 AM EDT Interval Hx 11/24/2024 Plan discussed with patient and orthopedic team. SBP ranging 107-111 with heart rates in the 60s. She denies any nausea, vomiting, shortness of breath, or chest pain and reports urinating without difficulty and passing flatus. Past medical history, home medications, allergies, social and family history are reviewed. Review of Systems Constitutional: No fever or chills HENT: Negative. Eyes: Negative. Respiratory: Negative. Cardiovascular: Negative. Gastrointestinal: Negative. Endocrine: Negative. Genitourinary: urinating at baseline Musculoskeletal: pain is controlled . Skin: Negative. Neurological: Negative. Hematological: Negative. Psychiatric/Behavioral: Negative. Last Vitals Visit Vitals BP 110/60 Pulse 57 Temp 36.4 ??C (97.5 ??F) Resp 16 Ht 1.549 m (5' 1 ) Wt 75.3 kg (166 lb) SpO2 96% BMI 31.37 kg/m?? OB Status Postmenopausal Smoking Status Never BSA 1.8 m?? PHYSICAL EXAM Constitutional: Appearance: No acute distress HENT: Head: Normocephalic and atraumatic. Nose: Nose normal. Mouth: Mucous membranes are moist. Eyes: Conjunctiva/sclera: Conjunctivae normal. Cardiovascular: Rate and Rhythm: Normal rate and regular rhythm. Pulses: Normal pulses. Heart sounds: Normal heart sounds. Non-pitting edema bilateral LE Pulmonary: Effort: Pulmonary effort is normal. Breath sounds: Normal breath sounds. Abdominal: General: Bowel sounds are normal. Palpations: Abdomen is soft. Musculoskeletal: No joint swelling or erythema noted Skin: General: Skin is warm and dry. Capillary Refill: Capillary refill takes less than 2 seconds. Dressing dry and intact Neurological: General: No focal deficit present. Mental Status: alert and oriented to person, place, and time. Mental status is at baseline. Psychiatric: Mood and Affect: Mood normal. Behavior: Behavior normal. Current medications Current Medications[1] Recent labs and diagnostic tests Results from last 7 days Lab Units 11/24/24 0435 WBC 10*3/uL 12.93* HEMOGLOBIN g/dL 12.0 HEMATOCRIT % 37.2 PLATELETS 10*3/uL 194 Results from last 7 days Lab Units 11/24/24 0435 SODIUM mmol/L 139 POTASSIUM mmol/L 4.8 CHLORIDE mmol/L 106 CO2 mmol/L 25 BUN mg/dL 18 CREATININE mg/dL 0.77 CALCIUM mg/dL 9.1 GLUCOSE mg/dL 113* ASSESSMENT AND PLAN Essential hypertension -at baseline she is on irbesartan-hydrochlorothiazide 300-12.5 tab take 1/2 tab daily, which is currently on hold. -SBP is ranging in the low 100s. Plan: - since her systolic pressures running in the low 100s, will leave the following instructions on when to resume her irbesartan-hydrochlorothiazide : --> check your blood pressure daily --> once her systolic blood pressure (top number) is greater than 120, you can resume your irbesartan-hydrochlorothiazide History diabetes mellitus -controlled without medications, her A1c was 5.6% -glucose on morning lab was 113 Plan: - can follow-up with her primary provider as needed Gastroesophageal reflux disease, no issues at this time, will continue on her PPI -ppi will be added per protocol Status post right total knee replacement -DVT prophylaxis is apixaban 2.5 mg twice daily for 4 weeks -is tolerating her physical therapy Plan: - per primary team Reduced mobility secondary to rt tka Plan: -will start off with a walker with restrictions, transition in the outpatient setting by Physical therapy as appropriate. Leukocytosis -WBC count postoperatively is found to be 12.9 -no signs and symptoms of infection, remains afebrile Plan: - follow-up with primary as needed Moderate obesity -Impacts all aspects of care, they follow-up with primary care provider Karel Damon, [facility] Medicine Secure Chat [1] Current Facility-Administered Medications Medication Dose Route Frequency Provider Last Rate Last Admin acetaminophen (Tylenol) tablet 1,000 mg 1,000 mg Oral q8h De Bledsoe MD 1,000 mg at 11/24/24 0548 apixaban (Eliquis) tablet 2.5 mg 2.5 mg Oral BID De Perez MD aztreonam (Azactam) 2 g in sodium chloride 0.9% 100 mL IVPB (vial adapter required) 2 g [id number] De Perez MD 36.7 mL/hr at 11/24/24 0234 2 g at 11/24/24 0234 bethanechol (Urecholine) tablet 20 mg 20 mg Oral Once PRN De Perez MD bisacodyl (Dulcolax) suppository 10 mg 10 mg Rectal BID PRN De Perez MD calcium-vitamin D 500-200 MG-UNIT per tablet 1 tablet 1 tablet Oral BID with meals De Perez MD 1 tablet at 11/24/24 0844 diphenhydrAMINE (Benadryl) tablet 12.5 mg 12.5 mg Oral q4h PRN De Perez MD gabapentin (Neurontin) capsule 100 mg 100 mg Oral q8h De Perez MD 100 mg at 11/24/24 0844 HYDROmorphone (Dilaudid) injection 0.5 mg 0.5 mg Intravenous q6h PRN De Perez MD ketorolac (Toradol) injection 15 mg 15 mg Intravenous q6h [facility] De Perez MD 15 mg at 549 lactated Ringer's infusion 75 mL/hr Intravenous Continuous Mychal Do MD 75 mL/hr at 11/23/24 1047 Continued by Anesthesia at 11/23/24 1047 magnesium hydroxide (Milk of Magnesia) 400 MG/5ML suspension 30 mL 30 mL Oral BID PRN Claritza Perez MD ondansetron (Zofran) injection 4 mg 4 mg Intravenous q6h PRN De Perez MD oxyCODONE (Roxicodone) immediate release tablet 5 mg 5 mg Oral q4h PRN De Perez MD pantoprazole (Protonix) EC tablet 40 mg 40 mg Oral Daily before breakfast De Perez MD 40 mgat 11/24/24 0844 polyethylene glycol (Miralax) packet 17 g 17 g Oral Daily with breakfast De Perez MD 17 g at 11/24/24 0844 rosuvastatin (Crestor) tablet 20 mg 20 mg Oral Nightly Pradip Damon APRN scopolamine (Transderm-Scop) patch 1 patch 1 patch Transdermal Once YawYannick scott PA 1 patch at 11/23/24 0907 senna-docusate (Dena-Colace) 8.6-50 MG per tablet 2 tablet 2 tablet Oral Nightly De Perez MD 2 tablet at 11/23/24 2112 traMADol (Ultram) tablet 100 mg 100 mg Oral q8h [place] De Perez MD 100 mg at 11/24/24 0548 traMADol (Ultram) tablet 50 mg 50 mg Oral q12h PRN De Perez MD * Progress Notes - Calli Smith - 11/24/2024 9:08 AM EDT Physical Therapy Treatment Patient Name: Italia Maravilla Today's Date: 11/24/2024 PT Discharge Recommendations: Home with assistance, Outpatient PT Equipment Recommended: Patient owns appropriate equipment Subjective Pt reported she has been doing her exercises and is ready to walk with us. Participants in Care Family/Caregiver Present: Yes Family/Caregiver: Spouse Emergency Veterinary Assistant: Not Applicable Presentation Oxygen Therapy: None (Room air) Lines and Tubes: Intravenous access Pre-Session: Sitting in chair Pre-Session Comments: Chair alarm not in place. Post-Session: Sitting in chair, Chair alarm, Call light in reach, SCDs applied Post-Session Comments: All needs within reach. Chair alarm connected to call miranda. Legs elevated. Cryocuff donned. RLE left in heel prop. Precautions Right Lower Extremity Weight Bearing Status: Weight Bearing as Tolerated Medical Precautions: Fall precautions Objective Pain No reports of pain. Delirium Screening Vu Agitation Sedation Scale (RASS): Alert and calm Confusion Assessment Method-ICU (CAM-ICU/PCAM-ICU) Feature 3: Altered Level of Consciousness: Negative Transfers Transfer Exam: Sit to stand Level of [place]: Stand-by assist Physical/Nonphysical Assist: Supervision, Verbal Cues Assistive Device: Walker, rolling Transfer Exam: Stand to Sit Level of [place]: Stand-by assist Physical/Nonphysical Assist: Supervision, Verbal Cues Assistive Device: Walker, rolling Therapeutic Activity ( minutes) Pt did not require cues for transfers. She was able to bridge up in chair for therapist to place chair alarm in seat. She did well with scooting back into chair using armrests. Gait Training (27 minutes) Device: Rolling walker Apparatus: None Assistance: Standby assist Distance: 250+ ft Gait Analysis: slow shakir, decreased stance time on RLE Gait Training Interventions: gait became smoother as she walked, seemed appropriate for post op status Pt did not required cues for ambulation. Her gait became smoother as she walked. She displayed decreased stance time on RLE, but not excessive. She was given the option to turn around after about 90 feet and chose to keep walking further. Therapeutic Exercise (15 minutes) Pt educated on HEP packet and was able to verbalize and demonstrate understanding. Completed 3-5 each of seated knee flexion, LAQ, ankle pumps, quad sets, glute sets, hamstring sets, SLR, SAQ, hip abd/adduction, heel slides, calf stretch, and heel prop. Required some verbal and tactile cues to engage quads and hamstrings at times, but some exercises were familiar from pre-op therapy. Assessment Pt tolerated treatment well today. She required very few cues and has been compliant with exercises. Educated pt that it is possible to do too much, but she should get up and walk no more than 100 feet every hour. Pt. has the following impairments: decreased endurance and decreased rom . Pt. activity tolerance/endurance is limited to 30+ min's with rest breaks with multiple rest breaks. Pt. treatment session: Pt. had no adverse reaction to treatment . Pt. still requiring skilled services for functional mobility. PT Recommendations Discharge Destination: Home with assistance, Outpatient PT Discharge Equipment: Patient owns appropriate equipment Plan Continue PT to progress toward established goals. PT Goals PT GOAL DETAILS Goal Established Date Time Frame Goal Status PT Goal 1: Patient will perform sit to/from stand transfers with supervision with safe technique toprogress toward PLOF 11/23/24 2 weeks PT Goal 2: Patient will ambulate x 100 ft with RW with SBA to progress toward PLOF 11/23/24 2 weeks Written by Calli Smith on 11/24/24 at 11:41 AM. Cosigned by Darline Olsen at 11/24/2024 1:07 PM EDT Associated attestation - Darline Olsen - 11/24/2024 1:07 PM EDT As the supervising therapist, I was present in the room with the patient and BREAST SURGEON student throughoutthe duration of the treatment session. I have reviewed and agree with this document written by the student Physical Therapist Electric Motor Mechanic for this patient on this date/time. Darline Olsen BREAST SURGEON * Progress Notes - Chaitanya Rosenthal - 11/24/2024 8:49 AM EDT Occupational Therapy Evaluation/Discharge Patient Name: Italia Maravilla Today's Date: 11/24/2024 OT Discharge Recommendations: Home with assistance Equipment Recommended: Patient owns appropriate equipment History Italia Maravilla is 69 y.o. female admitted 11/23/2024 for work-up of Primary osteoarthritis of knees, bilateral. Problem List Active Hospital Problems Diagnosis Date Noted Primary osteoarthritis of right knee 11/23/2024 Primary osteoarthritis of knees, bilateral 09/20/2024 Procedures 11/23/2024 Procedure(s): ARTHROPLASTY, KNEE, TOTAL Past Medical History Patient has a past medical history of Diabetes mellitus (CMS/HCC), Family history of DVT, HLD (hyperlipidemia), Hypertension, PONV (postoperative nausea and vomiting), and Renal cell carcinoma (2014). Past Surgical History Patient has a past surgical history that includes Tonsillectomy (N/A); Cholecystectomy (N/A); Tuballigation (N/A); Partial nephrectomy (Left); Bladder surgery (N/A); Foot surgery (Left); Hysterectomy; Hernia repair; and Colonoscopy. Precautions Right Lower Extremity Weight Bearing Status: Weight Bearing as Tolerated Medical Precautions: Fall precautions Subjective Pt agreeable to OT eval. Participants in Care Family/Caregiver Present: Yes Family/Caregiver: Spouse Emergency Veterinary Assistant: Not Applicable Presentation Oxygen Therapy: None (Room air) Lines and Tubes: Intravenous access Pre-Session: Supine, Head of bed elevated, Bed alarm, Lines intact Pre-Session Comments: RN consent Post-Session: Sitting in chair, Lines intact, Chair alarm, Call light in reach, SCDs applied Post-Session Comments: All needs met/Left in care of PT Home Living/Set-up Lives With: Spouse Home Type: House Home Adaptive Equipment: Rolling walker Home Layout: One level (ramp at entry) Bathroom: Tub/Shower: Tub/Shower combo Prior Level of Function Receives Help From: No assist required prior to admission Level of Mobility: Ambulatory- community Mobility [place]: Independent gait without device History of Falls: Yes ADL Performance: Independent Patient/Family Goals Statement Return home with assist Objective Pain No complaints of pain Delirium Screening Vu Agitation Sedation Scale (RASS): Alert and calm Confusion Assessment Method-ICU (CAM-ICU/PCAM-ICU) Feature 3: Altered Level of Consciousness: Negative Cognition Overall Cognitive Status: Within Functional Limits Arousal/Alertness: Appropriate responses to stimuli Mood/Behavior: Alert Orientation Level: Oriented X4 Single Step Commands: Consistently Multi-Step Commands: Consistently Method of Communication: Verbal Right Upper Extremity Examination RUE ROM Assessment RUE Assessment: Within Functional Limits Manual Muscle Testing - RUE: Within functional limits Left Upper Extremity Examination LUE ROM Assessment LUE Assessment: Within Functional Limits Manual Muscle Testing - LUE: Within functional limits Right Lower Extremity Examination RLE ROM Assessment RLE Assessment: Exceptions to WFL (decreased in knee related to pain) Manual Muscle Testing - RLE: Within functional limits except (not tested) Left Lower Extremity Examination LLE ROM Assessment LLE Assessment: Within Functional Limits Manual Muscle Testing: Within functional limits Bed Mobility Bed Mobility Exam: Supine to Sit Level of [place]: Stand-by assist Physical/Nonphysical Assist: Supervision, Verbal Cues Transfers Transfer Exam: Sit to stand Level of [place]: Stand-by assist Physical/Nonphysical Assist: Supervision, Verbal Cues Assistive Device: Walker, rolling Transfer Exam: Stand to Sit Level of [place]: Stand-by assist Physical/Nonphysical Assist: Supervision, Verbal Cues Assistive Device: Walker, rolling Transfer Exam: Bed to Chair/Chair to Bed Level of [place]: Stand-by assist Physical/Nonphysical Assist: Supervision, Verbal Cues Type of Transfer: (pt ambulated prior to returning to bedside chair) Assistive Device: Walker, rolling Self-Care Interventions Self Care/Home Management (ADLs) Time Entry: 9 UE Dressing UE Dressing Level of Assistance: Supervision, SBA UE Dressing Where Assessed: Chair level Lower Extremity Dressing Pants Level of Assistance: SBA, Setup LE Dressing Where Assessed: Chair level LE Dressing Interventions: Cues for technique Self-Care CARE Tool Performance SELF-CARE ITEMS CARE SCORE Eating Oral Hygiene Toileting Hygiene Shower/Bathe Self Upper Body Dressing Lower Body Dressing Putting On / Taking Off Footwear CARE Tool Performance Score [place] Score Assist Level Description 6 Independent Patient completes the activity by him/herself with no assistance from a helper. 5 Set-up or Clean-up Assistance Newton sets up or cleans up; patient completes activity. Newton assists only prior to or following the activity. 4 Supervision or touching assistance Newton provides verbal cues and/or touching/steadying and/or contact guard assistance as patient completes activity. Assistance may be provided throughout the activity or intermittently. 3 Partial/Moderate Assistance Newton does LESS THAN HALF the effort. Newton lifts, holds or supports trunk or limbs, but provides less than half the effort. 2 Substantial/Maximal Assistance Newton does MORE THAN HALF the effort. Newton lifts or holds trunkor limbs and provides more than half the effort. 1 Dependent Newton does ALL of the effort. Patient does none of the effort to complete the activity. Or, the assistance of 2 or more helpers is required for the patient to complete the activity. Activity Not Attempted Values 7 Patient refused. 9 Not applicable - Not attempted and the patient did not perform this activity prior to the currentillness, exacerbation, or injury. 10 Not attempted due to environmental limitations (e.g., lack of equipment, weather constraints) 88 Not attempted due to medical condition or safety concerns Standardized Assessments Vielka Index Feeding: Independent Bathing: Independent (or in Shower) Grooming: Independent face/hair/teeth/shaving (implements provided) Dressing: Independent (including buttons, zips, laces etc.) Bowels: Continent Bladder: Continent Toilet Use: Independent (on and off, dressing, wiping) Transfers (Bed to Chair and Back): Minor help (verbal or physical) Mobility (on Level Surfaces): Walks with help or one person (verbal or physical) > 50 yards Stairs: Needs help (verbal, physical, carrying aid) Total Score: 85 No data recorded Assessment Pt demonstrated ability to complete LB dressing while sitting in bedside chair and cues for technique. Pt was IND for UB dressing, grooming and eating. Pt was SBA for all functional transfers at RW level. Eval Complexity Occupational Profile: Expanded review of medical/therapy records and additional review of physical,cognitive, or psychosocial history Clinical Decision Making: Low Overall Eval complexity: Low OT Recommendations Discharge Destination: Home with assistance Discharge Equipment: Patient owns appropriate equipment Plan Patient no longer demonstrates need for inpatient occupational therapy services. Patient to be discharged from occupational therapy. Written by Chaitanya Rosenthal on 11/24/24 at 8:57 AM. * Progress Notes - De Perez MD - 11/24/2024 6:24 AM EDT Orthopaedic Recon Surgery Progress Note 11/24/24 Subjective: No acute events overnight. Doing well. Pain controlled. Tolerating diet. No nausea, vomiting, fevers or chills. Rates her pain as 0.5/10. She is looking forward to working with PT and discharging today. Objective: Vitals: 11/24/24 0245 BP: 107/66 Pulse: 62 Resp: 16 Temp: 36.6 ??C (97.9 ??F) SpO2: 97% Physical Examination: No acute distress Non labored breathing Peripheral perfusion intact Focused Musculoskeletal Examination: RLE: Juan wrap and polar care in place Motor intact tib ant, gastroc, EHL/FHL SILT SP, DP, tibial, sural, saph dist Foot WWP Data: Labs in last 18 hours: CBC WBC 12.93 (H) Hb 12.0 Plt 194 Hct 37.2 INR ??, PTT ??, Anti-Xa ?? BMP Na 139 Cl 106 BUN 18 Glu 113 (H) K 4.8 Co2 25 Cr 0.77 Lactate ?? Assessment & Plan: Italia Maravilla is a 69 y.o. female patient with the following orthopedic injuries: R TKA (11/23) Edited by: De Perez MD at 11/23/2024 0615 AFVSS (11/24), H/H 12/37.2, BMP ok (11/24), PT recs: HWA, Discharge Abx: none, DVT Ppx: eliquis, Dressings: prineo, Precautions: none Edited by: De Perez MD at 11/24/2024 0517 - DVT prophylaxis: eliquis - Pain control: multimodal - Nutritional optimization - Bowel regimen - PT/OT recommendations: HWA - Follow up: EW 12/08 [facility] clinic - Disposition: likely discharge today following repeat PTOT evaluation Mobility Orders Mobility Protocol: General - Mobility Guidelines Extremity Precautions: No Extremity Precautions Other mobility precautions: Other precautions Other mobility precautions: Other Other: Out of bed to chair 2 hours post-op Misael Perez MD Orthopaedic Surgery PGY-1 [facility] Orthopaedic Trauma Service Pager: [phone] Orthopaedic Recon/Spine/Foot and Ankle Service Pager: [phone] Personal Pager: [phone] Cosigned by Anthony Abraham MD at 11/25/2024 12:36 PM EDT * Progress Notes - Narda Manzo - 11/23/2024 3:38 PM EDT Physical Therapy Evaluation Patient Name: Italia Maravilla Today's Date: 11/23/2024 PT Discharge Recommendations: Home with assistance, Outpatient PT Equipment Recommended: Patient owns appropriate equipment History Italia Maravilla is 69 y.o. female admitted 11/23/2024 for work-up of Primary osteoarthritis of knees, bilateral. Problem List Active Hospital Problems Diagnosis Date Noted Primary osteoarthritis of right knee 11/23/2024 Primary osteoarthritis of knees, bilateral 09/20/2024 Procedures 11/23/2024 Procedure(s): ARTHROPLASTY, KNEE, TOTAL Past Medical History Patient has a past medical history of Diabetes mellitus (CMS/HCC), Family history of DVT, HLD (hyperlipidemia), Hypertension, PONV (postoperative nausea and vomiting), and Renal cell carcinoma (2013). Past Surgical History Patient has a past surgical history that includes Tonsillectomy (N/A); Cholecystectomy (N/A); Tuballigation (N/A); Partial nephrectomy (Left); Bladder surgery (N/A); Foot surgery (Left); Hysterectomy; Hernia repair; and Colonoscopy. Precautions Right Lower Extremity Weight Bearing Status: Weight Bearing as Tolerated Medical Precautions: Fall precautions Subjective Pt agreeable to participate, reports pain in R knee 2/10 Participants in Care Family/Caregiver Present: Yes Family/Caregiver: Spouse Emergency Veterinary Assistant: Not Applicable Presentation Oxygen Therapy: None (Room air) Lines and Tubes: Intravenous access Pre-Session: Supine, Head of bed elevated, Bed alarm, Lines intact Pre-Session Comments: RN consent Post-Session: Sitting in chair, Lines intact, Chair alarm, Call light in reach, SCDs applied Post-Session Comments: needs met Home Living/Set-up Lives With: Spouse Home Type: House Home Adaptive Equipment: Rolling walker Home Layout: One level (ramp at entry) Bathroom: Tub/Shower: Tub/Shower combo Prior Level of Function Receives Help From: No assist required prior to admission Level of Mobility: Ambulatory- community Mobility [place]: Independent gait without device History of Falls: Yes ADL Performance: Independent Patient/Family Goals Return to PLOF Objective Pain 2/10 in R knee Delirium Screening Vu Agitation Sedation Scale (RASS): Alert and calm Confusion Assessment Method-ICU (CAM-ICU/PCAM-ICU) Feature 3: Altered Level of Consciousness: Negative Cognition Overall Cognitive Status: Within Functional Limits Arousal/Alertness: Appropriate responses to stimuli Mood/Behavior: Alert Orientation Level: Oriented X4 Single Step Commands: Consistently Multi-Step Commands: Consistently Method of Communication: Verbal Right Lower Extremity Examination RLE ROM Assessment RLE Assessment: Exceptions to WFL (decreased in knee related to pain) Manual Muscle Testing - RLE Manual Muscle Testing - RLE: Within functional limits except (not tested) Left Lower Extremity Examination LLE Assessment: Within Functional Limits Manual Muscle Testing: Within functional limits Bed Mobility Bed Mobility Exam: Scooting/Bridging Level of [place]: Stand-by assist Physical/Nonphysical Assist: Verbal Cues, Supervision Assistive Device: Bed rails Bed Mobility Exam: Supine to Sit Level of [place]: Stand-by assist Physical/Nonphysical Assist: Supervision, Verbal Cues Assistive Device: Bed rails Transfers Transfer Interventions: verbal cues for UE positioning and push off from seated surface for safety Transfer Exam: Sit to stand Level of [place]: Contact guard Physical/Nonphysical Assist: Supervision, Verbal Cues Assistive Device: Walker, rolling Transfer Exam: Stand to Sit Level of [place]: Contact guard Physical/Nonphysical Assist: Verbal Cues, Supervision Assistive Device: Walker, rolling Balance Static Sitting Balance Static Sitting-Balance Support: Right upper extremity support, Left upper extremity support Static Sitting-Level of Assistance: Standby assist Dynamic Sitting Balance Dynamic Sitting-Balance Support: Right upper extremity support, Left upper extremity support Dynamic Sitting-Balance: Anterior/Posterior weight shifts, Lateral weight shifts Level of Assistance: Standby assisst Static Standing Balance Static Standing-Balance Support: Right upper extremity support, Left upper extremity support Static Standing-Level of Assistance: Contact guard Gait Training (10 minutes) Device: Rolling walker Assistance: Contact guard assist Distance: 25 Gait Analysis: antalgic gait pattern with decreased stance time on RLE Gait Training Interventions: verbal cues for proper positioning of AD, heel strike on RLE and upright posture/forward gaze Therapeutic Exercise (5 minutes) Patient participated in therapeutic exercise consisting of glute sets, quad sets and ankle pumps x 10 reps each. Education provided on importance of performing frequently to prevent DVT, improve muscle function, improve outcomes, and functional relationship to surgical procedure. Written instruction provided. Standardized Assessments Standardized Assessments Standardized Assessments: AMPAC 6-Clicks Mobility Assessment AMPA 6-Clicks Mobility Assessment Difficulty patient has turning over in bed (including adjusting bedclothes, sheets, and blankets)?:None Difficulty patient has sitting down on and standing up from a chair with arms (wheelchair, bedside commode, etc.)?: None Difficulty patient has moving from lying on back to sitting on the side of the bed?: A little How much help does the patient need moving to and from a bed to a chair (including a wheelchair)?: A little How much help does the patient need to walk in hospital room?: A little How much help does the patient need climbing 3-5 steps with a railing?: A little [facility] 6-Clicks Mobility Assessment Total : 20 Assessment Patient tolerated PT without c/o increased pain or dizziness; she will benefit from skilled PT during hospitalization to address deficits and progress toward PLOF. She has a RW for use at home and reports she will be beginning outpatient PT next week. Impairments: Impaired gait dynamics/performance, Impaired functional mobility/transfers, Decreased strength, Decreased range of motion Activity Limitations: Inability to ambulate independently, Inability to transfer independently, Inability to ambulate community distances Participation Restrictions: Self-care, Home management, Work Activity Tolerance: Tolerates 10 - 20 min activity with multiple rests Evaluation/Treatment Tolerance: Patient limited by pain Diagnosis: R TKA Rehab Potential: Good, to achieve stated therapy goals Barriers to Discharge: Comorbidities Eval Complexity History Profile: No personal factors and/or comorbidities Clinical Presentation: Stable and/or uncomplicated characteristics Clinical Decision Making: Low complexity PT Recommendations Discharge Destination: Home with assistance, Outpatient PT Discharge Equipment: Patient owns appropriate equipment Plan Planned PT Interventions Bed mobility training, Gait training, Transfer training, ROM, Strengthening, Functional Mobility PT Frequency Twice daily PT Duration 2 weeks Goals PT GOAL DETAILS Time Frame PT Goal 1: Patient will perform sit to/from stand transfers with supervision with safe technique toprogress toward PLOF 2 weeks PT Goal 2: Patient will ambulate x 100 ft with RW with SBA to progress toward PLOF 2 weeks Written by Narda Manzo on 11/23/24 at 4:24 PM. * Joseph Cota - Giovanna Bliss, MALCOLM - 11/23/2024 1:39 PM EDT Images from the original note were not included. 93 Polar Care Ice Therapy Your doctor has prescribed an ice therapy machine to help lower your pain and swelling after your surgery. The Polar Care machine consists of a pad that you place on your body connected to a special ?cooler? of ice water. When you turn it on, ice cold water runs non-stop from the machine through tubes in the pad and numbs the area under the pad. The [facility] Care pad gets very cold and can cause serious damage to your skin and nerves if you don?tuse it correctly. Follow these instructions carefully ?? Always place a towel or T-shirt between the pad and your skin. Don?t let any part of the pad touch your bare skin. ?? Turn the machine on for 1 hour and then off for 1 hour whenever you are awake. ?? Don?t use the machine while you sleep. ?? Look at the skin that is under the pad every hour. If it is in a spot you can?t easily see, havesomeone else check it for you. ?? If the part of your body that you are using ice on is still numb from surgery, you need to be very careful as you won?t be able to feel pain or burning from the ice. ?? Tell your doctor or nurse if you have circulation problems or diabetes or if you have had frostbite in the past. ?? To save time and use less ice, the cooler with fit 4 standard water bottles (16.9 ounces each). Freeze the water bottles and place them in the cooler. Then fill the cooler with water to the fill line marked inside the cooler. This will keep the water cold for up to 2 days. Freeze 4 more bottles to have them ready to rotate when needed. Stop using the machine immediately and call your doctor if you have any of the following ?? Pain or swelling that gets worse ?? Blisters or welts ?? Increased redness or your skin changes color ?? Burning feeling * Joseph OnIR - Giovanna Bliss RN - 11/23/2024 1:39 PM EDT Images from the original note were not included. [id number] After Knee Replacement: Using a Walker Following your healthcare provider's instructions after knee replacement helps with early recovery.Once you can stand, you?ll start using a walker. Use the walker for moving around as long as the provider asks you to. This is generally four to six weeks but may vary from person to person. There are three main types of walkers: ?? Standard without wheels ?? 2-wheeled (front) rolling walker ?? 4-wheeled rolling walker Your physical therapist or another member of your healthcare team will help you select the best walker for you. As you become better at using the walker and your knee strengthens, you?ll be taught more advanced skills. For instance, after your physical or occupational therapist or contract assistant has shown you the correct procedures, you may practice stepping on and off a curb as directed. Your first steps ?? Push your walker a few inches in front of you. ?? Keeping your back straight, lean on the walker so it supports your weight. Step into the center of the walker with your operated leg, being careful not to twist your leg. Then, step with your other leg. ?? As you get more comfortable using the walker, you may be able to move it as you step. Walking up a curb ?? Move your feet and the walker as close to the curb as possible. ?? Put your weight on both your legs, then lift the walker onto the curb. ?? Step up with the un-operated leg. Using the walker to support your weight, bring up the operatedleg. Walking down a curb ?? Move your feet and the walker as close to the edge of the curb as you safely can. ?? Lower the walker onto the ground, keeping its back legs against the curb. ?? Using the walker to support your weight, lower the operated leg. Then step down with the other leg. Last Reviewed Date: 2024 00:00:00 ?? [id number] [employer]. All rights reserved. This information is not intended as a substitute for professional medical care. Always follow your healthcare professional's instructions. * [facility] - Giovanna Bliss RN - 11/23/2024 1:39 PM EDT Images from the original note were not included. 10832 Using an Incentive Spirometer An incentive spirometer is a handheld device that helps you do deep breathing exercises after surgery. It also helps lower the risk of breathing problems if you have a lung disease or condition. These exercises expand your lungs, aid in circulation, and may help prevent pneumonia. Deep breathing exercises also help you breathe better and improve lung function by: ?? Keeping your lungs clear. ?? Making your breathing muscles stronger. ?? Helping prevent respiratory complications or problems. The incentive spirometer gives you a way to take an active part in your recovery. A nurse or respiratory therapist will teach you breathing exercises. To do these exercises, you will breathe in through your mouth and not your nose. The incentive spirometer only works correctly if you breathe in through your mouth. Deep breathing expands the lungs, aids circulation, and helps prevent pneumonia. Your health care provider or their staff will tell you how to use the device, your targeted volume(s), and provide other helpful tips to prevent complications (such as pain, dizziness, feeling lightheaded) when blowing in the incentive spirometer. Steps to clear lungs Step 1. Exhale normally. Then, inhale normally. ?? Relax and breathe out. Step 2. Place your lips tightly around the mouthpiece. ?? Make sure the device is upright and not tilted. ?? Sit up and breathe out (exhale) fully. ?? Tightly seal your lips around the mouthpiece. Step 3. Inhale as much air as you can through the mouthpiece. Don't breathe through your nose. ?? Breathe in (inhale) slowly and deeply. ?? Hold your breath long enough to keep the balls, piston, or disk raised for at least 3 to 5 seconds, or as instructed by your health care provider. ?? Exhale slowly to allow the balls, piston, or disk to fall before repeating. Note: Some spirometers have an indicator to let you know that you are breathing in too fast. If theindicator goes off, breathe in more slowly. Step 4. Repeat the exercise regularly. ?? Do sets of 10 exercises every hour while you're awake, or as instructed by your health care provider. Don't do more than 30 breaths in each set. ?? If you were taught deep breathing and coughing exercises, do them regularly as instructed by your provider, nurse, or respiratory therapist. Follow-up care Make a follow-up appointment as directed by your health care provider. Also, follow up with your provider as advised if your symptoms don't improve or continue to get worse. When to contact your doctor Contact your health care provider right away if you have: ?? A fever 100.4?? (38??C) or higher, or as advised by your provider. ?? Brownish, bloody, or smelly sputum (phlegm that you cough up). Call 911 Call 911 if any of these occur: ?? Shortness of breath that doesn't get better after taking your medicine ?? Cool, moist, pale, or blue skin ?? Trouble breathing or swallowing, wheezing ?? Fainting or loss of consciousness ?? Feeling of dizziness or weakness, or a sudden drop in blood pressure ?? Feeling very ill ?? Lightheadedness ?? Chest pain or rapid heart rate Last Reviewed Date: 2024 00:00:00 ?? [id number] [employer]. All rights reserved. This information is not intended as a substitute for professional medical care. Always follow your healthcare professional's instructions. * [facility] - Giovanna Bliss RN - 11/23/2024 1:39 PM EDT Images from the original note were not included. 52227 Preventing Deep Vein Thrombosis After Surgery In the days and weeks after surgery, you have a higher chance of developing a deep vein thrombosis (DVT). This is a condition in which a blood clot or thrombus develops in a deep vein. They are most common in the leg. But a DVT may develop in an arm or another deep vein in the body. A piece of the clot, called an embolus, can separate from the vein and travel to the lungs. A blood clot in the lungs is called a pulmonary embolus (PE). This can cut off the flow of blood to the lungs. It's a medical emergency and may cause . Healthcare providers use the term venous thromboembolism (VTE) to describe both DVT and PE. They use the term VTE because the two conditions are very closely related and their prevention and treatment are similar. Prevention in the hospital or other facility Your healthcare provider will usually prescribe one or more of the following to prevent blood clots: ?? Blood-thinner (anticoagulant). This medicine prevents blood clots. You take it by mouth, by injection, or through an IV (intravenous). Commonly used anticoagulants include warfarin and heparin. Newer anticoagulants may also be used, including rivaroxaban, apixaban, dabigatran, and enoxaparin. Sometimes, your healthcare provider may not give you an anticoagulant medicine. It's important that they discuss the risks and benefits with you and document them. ?? Compression stockings. These elastic stockings fit tightly around your legs. They help keep blood flowing toward your heart by the pressure they apply. They prevent blood from pooling and forming blood clots. When you first put them on, the stockings may be uncomfortable. But after a while, you should get used to them. ?? Exercises. Simple exercises while you are resting in bed or sitting in a chair can help prevent blood clots. Move your feet in a [place]ag[place] or up and down. Do this 10 times an hour to improve circulation. ?? Getting out of bed and walking (ambulation). After surgery, a nurse will help you out of bed as soon as you are able. Moving around improves circulation and helps prevent blood clots. ?? Sequential compression device (SCD) or intermittent pneumatic compression (IPC). Plastic sleevesare wrapped around your legs and connected to a pump that inflates and deflates the sleeves. This applies gentle pressure to promote blood flow in the legs and prevent blood clots. Remove the sleevesso that you don't trip or fall when you are walking. For example, when you use the bathroom or shower. If you need help removing the sleeves, ask for help. Prevention at home Ankle exercises can help keep blood flowing in the veins. Deep vein thrombosis can happen even after you go home. Follow all instructions from your healthcare provider. The following are some general guidelines about DVT prevention: ?? Blood-thinner medicine. If a blood thinner was prescribed, make sure you follow all directions about taking it. Be sure you know what foods and medicines may interact. Also, ask your healthcare provider what to do if you forget to take a dose. ?? Compression stockings. Your healthcare provider will tell you how often to wear and remove the stockings. Follow all instructions closely. Each time you remove your stockings, check your legs and feet for reddened areas or sores. If you see any changes, call your healthcare provider right away. ?? Returning to activity. Follow all instructions about returning to activities. Be as active as you can. This improves blood flow and helps prevent a clot from forming. When in bed or in a chair, continue with the ankle exercises you did in the hospital. ?? Sequential compression device (SCD) or intermittent pneumatic compression (IPC). In some cases, this device may be recommended at home. If you are using this device at home, make sure you closely follow all instructions from your healthcare provider. You will be instructed on how often and for how long to use the device. Again, remove the sleeves if you are up and walking. When to call your healthcare provider You may have signs or symptoms of a blood clot. Or you may have signs or symptoms of bleeding from medicines to prevent clots. Call your healthcare provider if you have the following: ?? Pain, swelling, or redness in the leg, arm, or other area ?? Blood in the urine or stool ?? Very dark or tar-like stool ?? Vomiting with blood ?? Bleeding from the nose ?? Bleeding from the gums ?? A cut that will not stop bleeding ?? Bleeding from the vagina Call 911 Call 911 if you have any of the following: ?? Chest pain ?? Shortness of breath ?? Fast heartbeat ?? Excessive sweating ?? Fainting ?? Coughing (may cough up blood) ?? Heavy or uncontrolled bleeding Last Reviewed Date: 2022 00:00:00 ?? 9517-7954 [employer]. All rights reserved. This information is not intended as a substitute for professional medical care. Always follow your healthcare professional's instructions. * [facility] - Giovanna Bliss, RN - 11/23/2024 1:39 PM EDT Images from the original note were not included. [address]75 Preventing a Surgical Site Infection A risk of any surgery is an infection at the surgical site. The surgical site is a cut the surgeon makes in the skin to do the surgery. Surgical site infections can range in type. It may be a minor skin infection. Or it may be severe and include tissue under the skin or other organs. In some cases,a severe infection can cause . The information below tells you: ?? About surgical site infections. ?? What hospitals do to prevent them. ?? How they?re treated if they do occur. ?? What you can do to prevent an infection. Hand washing reduces the risk of infection. What causes a surgical site infection? Germs are everywhere. They?re on your skin, in the air, and on things you touch. Many germs are good. Some are harmful. Surgical site infections occur when harmful germs enter your body through the incision in your skin. Some infections are caused by germs that are in the air or on objects. But most are caused by germs found on and in your own body. Who is at risk for a surgical site infection? Anyone can have a surgical site infection. Your risk is higher if you: ?? Are an older adult. ?? Have a weak immune system. ?? Have other health conditions such as diabetes. ?? Take certain medicines, such as steroids. ?? Are a smoker. ?? Have certain types of surgery, such as abdominal surgery. ?? Have poor nutrition. ?? Are very overweight. ?? Have a surgery that lasts longer than 2 hours. What are the symptoms of a surgical site infection? An infection often shows up as skin redness, pain, and swelling around the incision that gets worse. Later, a cloudy or greenish-yellow fluid may come from the incision. The fluid may smell bad. The incision may pull apart or open up. You are likely to have a fever and may feel very ill. Symptoms can appear at any time. They may happen from hours to weeks after surgery. Implants such as an artificial knee or hip can become infected at any time after the surgery. How is a surgical site infection treated? ?? A surgical site infection is treated with antibiotics. The type of medicine you get will depend on what may be causing the infection. Most serious wound infections need wound care. In some cases, surgery may be needed on the infected wound. ?? An infected skin wound may be reopened and cleaned. A deep wound may need to be packed with gauze. The gauze is changed often until the wound starts to heal from the inside out. Your health care provider will decide the best way to treat your infection. ?? If an infection occurs where an implant is placed, the implant may be removed. ?? If you have an infection deeper in your body, you may need surgery to treat it. What hospitals do to prevent surgical site infections Many hospitals take these steps to help prevent surgical site infections: ?? Handwashing. Before the surgery, your surgeon and all surgery staff scrub their hands and arms with an antiseptic soap. ?? Clean skin. The site where your incision is made is carefully cleaned with an antiseptic solution. ?? Sterile clothing and drapes. The surgical team wears medical uniforms. These are known as scrub suits. They wear long-sleeved surgical gowns, masks, caps, shoe covers, and sterile gloves. Your body is fully covered with a large sterile sheet (sterile drape). There is an opening in the sheet where the incision is made. ?? Clean air. Operating rooms have special air filters. They use positive pressure airflow to prevent unfiltered air from entering the room. ?? Careful use of antibiotics. Antibiotics are given no more than 60 minutes before the incision ismade. They are generally stopped within 24 hours after surgery. This depends on the type of surgery. This helps kill germs but prevents problems that can occur when antibiotics are taken longer. ?? Controlled blood sugar levels. Your blood sugar level may rise. This can be because of the stress of the surgery. Your blood sugar level is watched closely to make sure it stays within a normal range. High blood sugar delays wound healing. This increases the risk of infection. ?? Controlled body temperature. A ratxl-mrsn-mziigw temperature during or after surgery prevents oxygen from reaching the wound. This makes it harder for your body to fight infection. Hospitals may warm I.V. fluids, and provide warm-air blankets. Your temperature is watched throughout the surgery. ?? Safe hair removal. Any hair that must be removed is clipped right before the incision, not shaved with a razor. This prevents tiny nicks and cuts where germs can enter. ?? Wound care. After surgery, a closed wound is covered with a sterile dressing for 1 to 2 days. Open wounds are packed with sterile gauze and covered with a sterile dressing. What you can do to prevent a surgical site infection ?? Ask questions. Learn what your hospital is doing to prevent infection. ?? If instructed, shower or bathe with plain soap the night before and the day of your surgery. Follow all instructions you're given. You may be asked to use a special cleanser that you don?t rinse off. ?? If you smoke, stop as long as possible before and after the surgery. Ask your provider about ways to quit. ?? Take antibiotics only when your provider tells you to. Using antibiotics when they?re not neededcan create germs that are harder to kill. Finish the entire prescription of your antibiotics even if you feel better. ?? Ask health care workers to clean their hands with plain soap and water or with an alcohol-based hand roll former before and after caring for you. Don?t be afraid to remind them. ?? After surgery, eat healthy foods. Care for your incision as directed by your health care team. When to contact your doctor Contact your provider or seek medical care right away if: ?? The pain at the surgical site gets worse. ?? A red streak, worse redness, or puffiness appears near the incision. ?? Yellowish, cloudy, or bad-smelling fluid leaks from the incision. ?? Your stitches dissolve before the wound heals. ?? You have a fever of 100.4?? F ( 38??C ) or higher, or as advised by your provider. ?? You have a tired feeling that doesn?t go away. Last Reviewed Date: 2024 00:00:00 ?? [id number] [employer]. All rights reserved. This information is not intended as a substitute for professional medical care. Always follow your healthcare professional's instructions. * [facility] - Giovanna Bliss RN - 11/23/2024 1:39 PM EDT Images from the original note were not included. 213 After Total Knee Replacement After your knee replacement, you will need to follow these instructions to avoid complications. Follow these instructions from the time you go home until your doctor says you can stop. Incision care ?? If your incision has sutures or sarah, do not shower until after you return to the clinic. ?? If your incision is closed with Dermabond Prineo and liquid skin adhesive, you may shower 24 hours after all drainage stops. Leave it in place until your follow-up appointment. ?? Sit on a shower chair or tub bench when you shower to keep from falling. Carefully wash around your incision with soap and water. Rinse the incision well. Then gently pat it dry. ?? Do not rub the incision or apply creams or lotions. ?? If your incision is not draining, you do not need a dressing over it. You may cover your incision with a light, dry bandage if you want. ?? Check your incision daily for redness, swelling, tenderness or drainage. Swelling ?? You will go home with a Polar Pack (ice machine). This will help reduce swelling in your knee and decrease your pain. ?? Use the Polar Pack for 20 minutes 3 times a day after doing your exercises and as needed to decrease swelling and pain. ?? Do not place the Polar Pack directly on the skin, You must have clothing, a washcloth, or a pillowcase between the Polar Pack and your skin. ?? To refill the Polar Pack, open the cooler lid and add ice and water as directed before each use. ?? An JUAN bandage will be on your leg after surgery. This can help to prevent swelling and is helpful to use for the first 1-2 weeks after surgery. Activity and exercise ?? Follow your doctor?s orders for how much weight to put on the affected leg. ?? Walk often and do the exercises physical therapy has taught you three times a day. ?? Gradually increase your activity every day. ?? Walk up and down stairs with support. Use the railing if possible. Try one step at a time - goodknee up, bad knee down. ?? Use a cane, crutches, a walker or handrails until your balance, flexibility and strength improve. And remember to ask for help from others when you need it. ?? Don?t engage in any jarring sports or activities such as jogging, tennis, or basketball until you have discussed this with your doctor. Sitting and lying down ?? Raise your leg when sitting to help decrease swelling. ?? Put a pillow under your ankle, not your knee. ?? Sit in chairs with arms. The arms make it easier for you to stand up or sit down. ?? Do not sit for more than 30 to 45 minutes at a time. ?? Nap if you are tired, but don?t stay in bed all day. ?? It is OK to sleep on your stomach or side. Use pillows between your legs when sleeping on your side. Be sure to change the position of your operated leg during the night. Bathroom safety ?? Use nonslip bath mats, grab bars and a shower chair in your bathroom. Riding and driving ?? Sit on a firm cushion when you ride in a car. ?? Don?t drive while you are taking narcotic pain medicine. ?? Don?t drive until your doctor says it?s ok. Most people can start driving two to four weeks after surgery. Managing pain ?? You should expect to have some pain as you heal. This pain may last weeks or months. ?? Take pain medicine as directed. Do not skip or add doses. ?? Take them at least 20 minutes before doing activities. Take them 30 to 60 minutes before exercise or physical therapy. ?? Do not take other pain medicines unless your doctor approves. This includes vzbt-mmn-oqsxteg medicines like aspirin, ibuprofen and Tylenol. ?? As you heal, you will need less pain medicine. Try taking one pill instead of two. Or take them two times a day instead of three times a day. ?? Raise your leg. Rest your leg on pillows. The knee should be higher than your hip. Do this when you are in bed or in a chair to help reduce swelling. Do not put a pillow under your knee. This could cause a blood clot or limit how much your knee bends as you heal. ?? Get up and move. This may help relieve discomfort at night. ?? You can also try listening to music, relaxing, distracting your mind or repositioning your leg. Preventing infection ?? Avoid infection by washing your hands often. ?? Call your surgeon right away if you think you have an infection in your operated knee. Signs include a fever, redness, increased pain, or an incision that leaks white, green or yellow fluid. ?? Avoid soaking your incision in water (no hot tubs, bathtubs, swimming pools) until your doctor says it?s ok which is typically around 4 weeks after surgery. ?? Wait 3 weeks after your surgery to shave your legs. ?? Wait 3 weeks after your surgery to get a flu or pneumonia vaccine. ?? Wait 2 months after your surgery for any routine dental appointments. When scheduling an appointment, be sure to tell your dentist that you have had a knee replacement. After knee replacement, your dentist may prescribe antibiotics for dental procedures. ?? Call your family doctor right away if you think you might have an infection elsewhere. Preventing blood clots ?? Take blood-thinning medicine as directed to prevent blood clots. ?? The nurses staff will teach you how to give the enoxaparin injection, if needed. ?? Do not miss doses of blood thinning medicine. ?? Use caution when taking long car trips or traveling by airplane for the first 6 weeks after surgery. If you must take a long car trip, stop every hour and walk for 10-15 minutes. Your doctor may recommend a blood thinner if you are flying within 6 weeks of surgery. Diet ?? It is normal to have a decreased appetite after surgery. Drink a nutritional supplement such as Boost or [place] Instant Breakfast until your appetite returns to normal. ?? Maintain a healthy weight. Added body weight puts stress on the knee. Get help to lose any extrapounds. Preventing constipation ?? Narcotic pain medicines can cause constipation. ?? Take stool softener as prescribed. ?? Drink plenty of fluids, especially water. ?? Increase fiber in your diet. Fruits, vegetables, beans, nuts and whole grains have fiber in them. ?? Call your doctor if your bowels do not move in the next few days after surgery. Sleep ?? Some patients have a hard time sleeping after surgery. ?? If you have problems sleeping, take jheo-bdj-yqqdkpj diphenhydramine (Benadryl) or melatonin. ?? If you still have problems sleeping, call the clinic. You may need a prescription for a sleep aid. Follow-up care ?? Your orthopaedic surgeon will schedule follow-up exams to make sure that your knee is healing correctly. Use this time to ask any questions you have about your recovery or activities. ?? If you need a prescription refill before your next appointment, call [phone]. Call 2 business days before you run out. ?? To check joint stability over time, you may have X-rays every five years. When should I call the doctor? Call [phone] right away if you have any of the following: ?? Chest pain ?? Shortness of breath or trouble breathing Call your doctor if you have any of the following: ?? An increase in knee pain ?? Pain or swelling in a calf or leg ?? Unusual redness, heat or drainage at the incision site ?? Fever of 101.5 degrees F or higher or shaking chills ?? Increased swelling in your leg * Anesthesia PACU Signout - Vicky Almanza MD - 11/23/2024 1:39 PM EDT Patient: Italia Maravilla Anesthesia Type: MAC, spinal Vitals Value Taken Time BP 129/62 11/23/24 13:30 Temp 36.4 ??C (97.5 ??F) 11/23/24 13:30 Pulse 63 11/23/24 13:31 Resp 16 11/23/24 13:31 SpO2 94 % 11/23/24 13:31 Vitals shown include unfiled device data. Anesthesia PACU Signout Patient location during evaluation: PACU Patient participation: complete - patient participated Level of consciousness: baseline and awake Pain management: adequate (pain score 0-3) Airway patency: natural airway Hydration status: acceptable PONV: none Cardiovascular status: acceptable and hemodynamically stable Respiratory status: acceptable, spontaneous ventilation, unassisted, nonlabored ventilation and room air Discharge Disposition: admit to inpatient unit Cosigned by Mychal Do MD at 11/24/2024 5:59 AM EDT Associated attestation - Mychal Do MD - 11/24/2024 5:59 AM EDT Signature Only * Consults - Pradip Damon APRN - 11/23/2024 12:42 PM EDTAssociated Order(s): Inpatient consult to Hospitalist Blas Brad Inpatient consult to Hospitalist [facility] Consult performed by: Pradip Damon APRN Consult ordered by: Anthony Abraham MD Reason for Visit: hypertension HPI Italia Maravilla is a 69 y.o. female seen at the request of Dr. Abraham for management of her hypertension following a right total knee replacement. Her hypertension is controlled with an oral agent that may need to be adjusted following surgery. She is seen in the preop. PAST MEDICAL HX Hypertension History of syncope, dizziness -was seen and cleared by cardiology prior to surgery -underwent stress test on 11/18/2024 showing no evidence of ischemia -underwent echocardiogram on 11/18/2024 showing EF of 55%-underwent bilateral carotid duplex on 11/18/2024 showing less than 50% bilateral stenosis, the vertebral arteries were patent with antegrade blood flow -MRI on 11/18/2024 reports to be negative Diagnosed with benign proximal positional vertigo, no further episodes since undergoing physical therapy GERD History of renal cancer status post 07/30 of her left kidney removed in 2013, received no chemo or radiation Controlled diabetes mellitus with no medications, preop A1c 5.6% History of left ankle surgery with plates and pins with decreased movement of her left great toe Chronic right knee pain PAST SURGICAL HX Surgical History[1] HOME MEDICATIONS Prior to Admission medications Medication Sig Start Date End Date Taking? Authorizing Provider acetaminophen (Tylenol 8 Hour) 650 MG ER tablet Take 1 tablet by mouth every 8 hours as needed for mild pain. Do not crush, chew, or split. Yes Ronnie Ramírez MD Calcium Carbonate-Vitamin D 250-3.125 MG-MCG tablet Take by mouth. Yes Ronnie Ramírez MD diclofenac (Voltaren) 75 MG EC tablet Take 1 tablet by mouth 2 times a day. 09/08/17 Yes Ronnie Ramírez MD estradiol (Estrace) 0.1 MG/GM vaginal cream Insert 2 g into the vagina 2 times a week. 11/03/21 Yes Ronnie Ramírez MD famotidine (Pepcid) 40 MG tablet Take 1 tablet by mouth every evening. 03/31/20 Yes Ronnie Ramírez MD fluticasone (Flonase) 50 MCG/ACT nasal spray Administer 2 sprays into each nostril as needed for allergies. 05/28/24 Yes Ronnie Ramírez MD irbesartan-hydroCHLOROthiazide (Avalide) 300-12.5 MG tablet Take 0.5 tablets by mouth daily. Only takes 1/2 pill 11/17/21 Yes Ronnie Ramírez MD rosuvastatin (Crestor) 20 MG tablet Take 1 tablet by mouth daily. 11/09/21 Yes Ronnie Ramírez MD oxyCODONE (Roxicodone) 5 MG immediate release tablet Take 1 tablet by mouth every 6 hours as neededfor moderate pain or severe pain. 11/23/24 Torsten Caal MD VITAMIN D PO Take 400 Int'l Units/day by mouth daily. Ronnie Ramírez MD diclofenac (Voltaren) 1 % topical gel APPLY 4 TIMES A DAY TOPICALLY DIRECTED Patient not taking: Reported on 11/08/2024 12/16/22 11/22/24 Ronnie Ramírez MD famotidine (Pepcid) 40 MG tablet Take 1 tablet (40 mg) by mouth 1 (one) time each day. Patient not taking: Reported on 09/20/2024 11/09/21 11/22/24 Ronnie Ramírez MD ALLERGIES Allergies[2] SOCIAL HISTORY reports that she has never smoked. She has never used smokeless tobacco. She reports that she does not drink alcohol and does not use drugs. FAMILY HISTORY Family History[3] Review of Systems Constitutional: No overt complaints HENT: Negative. Eyes: Negative. Respiratory: No history of obstructive sleep apnea, no shortness of breath or cough Cardiovascular: No chest pain or chest pressure, no history of cardiac disease , she does state that occasionally her watch will show her heart rates in the 40s and 50s, asymptomatic Gastrointestinal: Negative. Endocrine: Negative. Genitourinary: Negative. Musculoskeletal: Chronic right knee pain Skin: Negative. Neurological: Negative. Hematological: Negative. Psychiatric/Behavioral: Negative. Last Vitals Visit Vitals BP (!) 101/43 Pulse 59 Temp 36.5 ??C (97.7 ??F) (Tympanic) Resp 18 Ht 1.549 m (5' 1 ) Wt 75.3 kg (166 lb) SpO2 98% BMI 31.37 kg/m?? OB Status Postmenopausal Smoking Status Never BSA 1.8 m?? PHYSICAL EXAM Constitutional: Appearance: No acute distress HENT: Head: Normocephalic and atraumatic. Nose: Nose normal. Mouth: Mucous membranes are dry Pharynx: Oropharynx is clear. Eyes: Conjunctiva/sclera: Conjunctivae normal. Pupils: Pupils are equal, round, and reactive to light. Cardiovascular: Rate and Rhythm: Normal rate and regular rhythm. Pulses: Normal pulses. Heart sounds: Normal heart sounds. No edema is noted Pulmonary: Effort: Pulmonary effort is normal. Breath sounds: Normal breath sounds. Abdominal: General: Bowel sounds are normal. Palpations: Abdomen is soft. Musculoskeletal: No joint swelling or erythema noted Skin: General: Skin is warm and dry. Capillary Refill: Capillary refill takes less than 2 seconds. Neurological: General: No focal deficit present. Mental Status: alert and oriented to person, place, and time. Mental status is at baseline. Psychiatric: Mood and Affect: Mood normal. Behavior: Behavior normal. Recent labs labs and diagnostic tests Preop creatine 0.78 ASSESSMENT AND PLAN Essential hypertension -at baseline she is on irbesartan-hydrochlorothiazide 300-12.5 Plan: - will plan to hold here irbesartan-hydrochlorothiazide follow-up with her renal labs in a resume when appropriate History diabetes mellitus -controlled without medications, her A1c was 5.6% Plan: - her glucose will be elevated given that she has gotten steroids prior to surgery, will follow-up on her glucose in the BNP Gastroesophageal reflux disease -ppi will be added per protocol Chronic right knee pain -scheduled for surgical intervention later today Moderate obesity -Impacts all aspects of care, they follow-up with primary care provider Thank you for allowing us to participate in this patient's care, we will continue to follow. Pleasecontact the hospital medicine TONY ([facility] Consult Team TONY 7A-7P, night TONY 7P-7A) with questionsor concerns. Karel Damon, [facility] Medicine Secure Chat [1] Past Surgical History: Procedure Laterality Date BLADDER SURGERY N/A Bladder surgery from [facility] CHOLECYSTECTOMY N/A Cholecystectomy from [facility] COLONOSCOPY FOOT SURGERY Left HERNIA REPAIR HYSTERECTOMY PARTIAL NEPHRECTOMY Left Partial Nephrectomy from [facility] TONSILLECTOMY N/A Tonsillectomy from [facility] TUBAL LIGATION N/A Tubal Ligation from [facility] [2] Allergies Allergen Reactions Cephalexin Hives [3] Family History Problem Relation Name Age of Onset COPD Father Heart disease Father Heart disease Mother Stroke Mother Stroke Father Cosigned by Charlie Webber MD at 11/23/2024 6:24 PM EDT Associated attestation - Charlie Webber MD - 11/23/2024 6:24 PM EDT The patient was seen only by Advanced Practice Provider (TONY). I discussed with Pradip. * Op Note - Anthony Abraham MD - 11/23/2024 11:13 AM EDT OPERATIVE REPORT Date of procedure: 11/23/2024 Name: Italia Maravilla : 1955 Primary osteoarthritis of right knee Primary osteoarthritis of right knee Procedure: ARTHROPLASTY, KNEE, TOTAL Surgeons: Primary: Anthony Abraham MD Resident - Assisting: Jose G Campbell MD Anesthesia: General ASA: II EBL: minimal Implants: Implant Name Type Inv. Item Serial No. Geological Specialist Lot No. LRB No. Used Action CEMENT PALACOS - [id number] Cement CEMENT PALACOS [id number] Right 2 Implanted CHG TIBIAL GNS II CMT SIZE 3 R - [id number] Knee CHG TIBIAL GNS II CMT SIZE 3 R [id number] Right 1 Implanted PATELLA POROUS OVAL 29MM - [id number] Patella PATELLA POROUS OVAL 29MM [id number] Right 1 Implanted CHG INSERT LGN PS HG FX XLPE S - [id number] Knee CHG INSERT LGN PS HG FX XLPE S [id number] Right 1 Implanted CHG FEMORAL LEGION PS NRRW OXIN SZ5 RT - [id number] Knee CHG FEMORAL LEGION PS NRRW OXIN SZ5 RT [id number] Right 1 Implanted Specimen: No specimens collected during this procedure. Narrative: There was no qualified resident available for this case. These promotional advertising assistant was Jose G Campbell MD who has operative credentials at the [facility]. His assistance was needed for exposure, retraction, implantation and closure of the wound. Procedure: Right total knee replacement Computer assisted surgical navigation, imageless INDICATIONS FOR PROCEDURE: The patient had difficulty with daily activities and had failed all conservative management for this right knee. Options were discussed. The patient desired total knee arthroplasty understanding the risks to include, but are not be limited to: loss of life, loss of limb, need for further surgery, nonunion, malunion, infection, nerve and vessel injury, leg length discrepancy, stiffness, and thromboembolic complication. Informed consent was obtained. DESCRIPTION OF PROCEDURE: The patient was transferred to the operative suite after appropriate preoperative preparation and site marking. Preoperative intravenous antibiotics and tranexamic acid wereadministered as indicated. Anesthesia was induced. The right knee was prepared in the usual sterilefashion, draped in the usual sterile fashion and incision marked. The tourniquet was inflated to 300 mmhg. Incision was made in the midline. Medial parapatellar approach was utilized. The fat pad wasremoved, patella was everted, and gentle medial dissection was performed along the proximal tibia. Eburnated bone was noted in more than one compartment. The knee was flexed and the distal femoral cut was performed using the [employer] Imageless Navigation. The pin was placed to the distal femur and the navigation unit was then attached. The alignment was set at 2 degrees for flexion and for 1 degree varus to the mechanical axis of the leg. The distal femoral cutting block was then pinned to the distal femur and cut was performed. Bone cuts were removed and the sizing guide was utilized and showed the listed size above was appropriate size. The finishing cutting guide was then utilized with the axis set at 3 degrees external based on the epicondylar axis. The finishing cuts were made with the soft tissue protected, bone fragments were removed, and remaining femoral osteophytes were removed. Next, the knee was maximally flexed and the posterior cruciate retractor was utilized to retract the tibia forward and the remainingmenisci were removed. The extra medullary tibial guide was placed in line with the tibia and was used to cut the tibia at the appropriate depth and slope based on preoperative planning. Soft tissues w ere protected throughout the cuts. The bone fragments were removed and tibial osteophytes were removed. The baseplate trial was then placed in appropriate rotation with the guide just at the medial one third of the tibial tubercle and the punch and peg were used. A lamina storage battery inspector and tester was used to evaluate the flexion gap equality and posterior cruciate ligament integrity and the posterior osteophyteswere removed in their entirety along with any other posterior debris. After the osteophytes were removed, a small posterior release was performed. Trialing was performed, and after appropriate soft tissue balancing showed there was excellent equality of flexion/extension gaps and excellent varus valgus stability throughout a range of motion with the above size spacer. The patella was then treatedas indicated above and instruments based on the amount of patellar wear. Next, the patellar tracking was seen to be excellent with no thumbs. A lateral release was not necessary. Next, thorough irrigation was performed and the final implants were tapped and cemented into place using palacos cement.Excess cement was removed and cement was allowed to cure completely.The intra-articular injection was then performed in the pericapsular tissues and the final spacer was placed. This snapped in quitenicely and, again, motions were excellent and stability was excellent throughout a range of motion from 0 to 125 degrees. Thorough irrigation was performed and the wound was closed using #1 Vicryl sutures in the parapatellar approach, 2-0 Vicryl sutures in the subcutaneous skin, and 3-0 V-loc used in the cutaneous skin. Dermabond prineo was used for wound sealant and sterile dressings were applied when the Dermabond was dry. The patient was awakened and transferred to recovery room in stable condition. PLAN: The patient will be weightbearing as tolerated on the operative lower extremity. Standard postoperative knee replacement protocols will be followed. I was present for all carrasquillo portions of the procedure which included but were not limited to bone cuts and hardware placement. Submitted by: Anthony Abraham MD-11/23/2024-3:31 PM * Progress Notes - Anthony Abraham MD - 11/23/2024 9:49 AM EDT Pre-operative H and P Chief Complaint: Right knee pain History of Present Illness: Italia Maravilla is a 69 y.o. female presenting with above complaint and was evaluated and deemed a candidate for surgery based on history and physical exam previously. Past Medical History: has a past medical history of Diabetes mellitus (CMS/HCC), Family history of DVT, HLD (hyperlipidemia), Hypertension, PONV (postoperative nausea and vomiting), and Renal cell carcinoma (2013). Surgical History: has a past surgical history that includes Tonsillectomy (N/A); Cholecystectomy (N/A); Tubal ligation (N/A); Partial nephrectomy (Left); Bladder surgery (N/A); Foot surgery (Left); Hysterectomy; Hernia repair; and Colonoscopy. Family History: Family History Problem Relation Name Age of Onset ??? COPD Father ??? Heart disease Father ??? Heart disease Mother ??? Stroke Mother ??? Stroke Father Social History: reports that she has never smoked. She has never used smokeless tobacco. She reports that she does not drink alcohol and does not use drugs. Allergies: Cephalexin Medications: Current Facility-Administered Medications Medication Dose Route Frequency Provider Last Rate Last Admin ??? ceFAZolin (Ancef) injection 2 g 2 g Intravenous Once Yannick Tidwell PA ??? lactated Ringer's infusion 75 mL/hr Intravenous Continuous Mychal Do MD 75 mL/hr at 11/23/24 0857 75 mL/hr at 11/23/24 0857 ??? lidocaine (Xylocaine) 1 % injection 0.5 mL 0.5 mL Injection Once PRN Mychal Do MD ??? scopolamine (Transderm-Scop) patch 1 patch 1 patch Transdermal Once Yannick Tidwell PA 1 patch at 11/23/24 0907 ??? sodium chloride 0.9 % flush 10 mL 10 mL Intravenous q12h Mychal Do MD And ??? sodium chloride 0.9 % flush 10 mL 10 mL Intravenous PRN Mychal Do MD ??? sodium chloride 0.9 % flush 10 mL 10 mL Intravenous q12h Yannick Tidwell PA And ??? sodium chloride 0.9 % flush 10 mL 10 mL Intravenous PRN Yannick Tidwell PA ??? tranexamic acid (Cyklokapron) IVPB 1,000 mg 1,000 mg Intravenous Once Yannick Tidwell PA ??? tranexamic acid (Cyklokapron) IVPB 1,000 mg 1,000 mg Intravenous Once Yannick Tidwell PA ??? vancomycin in NS (Vancocin) IVPB 1,250 mg 1,250 mg Intravenous Once Anthony Abraham MD 200 mL/hr at 11/23/24 0907 1,250 mg at 11/23/24 0907 Review of systems: negative other than above Physical exam: Last recorded vitals: Blood pressure (!) 162/87, pulse 67, temperature 36.5 ??C (97.7 ??F), temperature source Tympanic, resp. rate 16, height 1.549 m (5' 1 ), weight 75.3 kg (166 lb), SpO2 99%. refer to nursing notes General: no apparent distress HEENT: speaks clearly, eyes open CV: perfused Respiratory: moves air well Ext: Right knee varus Skin: intact Refer to anesthesiology H and P for other pertinent physical findings related to surgical preparedness. Assessment/Plan: Primary osteoarthritis of right knee Procedure(s) (LRB): ARTHROPLASTY, KNEE, TOTAL (Right) documented in this encounter Plan of Treatment Upcoming Encounters Date Type Department Care Team (Latest Contact Info) Description 02/01/2025 8:45 AM EDT Hospital Encounter [facility] Operating Room [address] [place] [address] Anthony Abraham MD [address] [address] 02/01/2025 8:45 AM EDT - 02/01/2025 11:05 AM EDT Surgery [facility] Operating Room [address] [place] [address] Anthony Abraham MD [address] [place] [address] ARTHROPLASTY, KNEE, TOTAL [12592 (CPT )] 02/16/2025 10:00 AM EDT Office Visit [facility] [address], [address] [place] [address] Isaiah Anne PA [address] [place] [address] 03/21/2025 9:40 AM EDT Office Visit Medical [facility] [address] , [address] [place] [address] Anthony Abraham MD [address] [place] [address] Scheduled Procedures Name Priority Associated Diagnoses Date/Ti me ARTHROPLASTY, KNEE, TOTAL Primary osteoarthritis of one knee, left 02/01/2025 8:45 AM EDT Scheduled Referrals Name Type Priority Associated Diagnoses Orde r Schedule Discharge Ambulatory referral to Physical Therapy Outpatient Referral Routine Primary osteoarthritis of right knee 1 Occurrences starting 11/24/2024 until 05/26/2026 documented as of this encounter Goals Goal Patient Goal Type Associated Problems Recent Progress Patient-Stated? Author Autogene damien Goal Care Plan Autogenerated Problem No Marta Espinoza documented as of this encounter Procedures Procedure Name Priority Date/Time Associated Diagnosis Comments CBC W/O DIFFERENTIAL Routine 11/24/2024 4:35 AM EDT BASIC METABOLIC PANEL, PLASMA Routine 11/24/2024 4:35 AM EDT XR KNEE RIGHT 1 OR 2 VIEWS Routine 11/23/2024 1:12 PM EDT NM TOTAL KNEE ARTHROPLASTY 11/23/2024 10:34 AM EDT Primary osteoarthritis of right knee documented in this encounter Results * (ABNORMAL) Basic metabolic panel (11/24/2024 4:35 AM EDT) Pathologist [facility] Glucose, Plasma 113(H) 74 - 99 mg/dL 11/24/2024 5:17 AM EDT [facility] BUN, Plasma 18 8 - 23 mg/dL 11/24/2024 5:17 AM EDT [facility] Creatinine, Plasma 0.77 0.60 - 1.10 mg/dL 11/24/2024 5:17 AM EDT [facility] BUN/Creatinine Ratio 23 11/24/2024 5:17 AM EDT [facility] Sodium, Plasma 139 136 - 145 mmol/L 11/24/2024 5:17 AM EDT [facility] Potassium, Plasma 4.8 3.6 - 4.9 mmol/L 11/24/2024 5:17 AM EDT [facility] Chloride, Plasma 106 97 - 107 mmol/L 11/24/2024 5:17 AM EDT [facility] CO2, Plasma 25 22 - 29 mmol/L 11/24/2024 5:17 AM EDT [facility] Anion Gap 8 6 - 16 mmol/L 11/24/2024 5:17 AM EDT [facility] Total Calcium, Plasma 9.1 8.9 - 10.2 mg/dL 11/24/2024 5:17 AM EDT [facility] eGFRcr 84.1 mL/min/1.7 3m*2 11/24/2024 5:17 AM EDT [facility] Comment:Reported eGFRcr in m L/min/1.73m2 is based the CKD-EPI 2020 equation that does not use a race coefficient. Blood Venous blood specimen / Unknown Venipuncture / Unknown 11/24/2024 4:35 AM EDT 11/24/2024 4:51 AM EDT us Anthony Abraham MD LAB BLOOD ORDERABLES Final Re sult [facility] [address] [place] [id number] * (ABNORMAL) CBC (11/24/2024 4:35 AM EDT) WBC Count 12.93(H) 3.70 - 10.30 10*3/uL LAB HEMATOLOGY METHOD 11/24/2024 4:57 AM EDT [facility] RBC Count 3.95 3.90 - 5.20 10*6/uL LAB HEMATOLOGY METHOD 11/24/2024 4:57 AM EDT [facility] HGB 12.0 11.2 - 15.7 g/dL LAB HEMATOLOGY METHOD 11/24/2024 4:57 AM EDT [facility] HCT 37.2 34.0 - 45.0 % LAB HEMATOLOGY METHOD 11/24/2024 4:57 AM EDT [facility] Platelet Count 194 155 - 369 10*3/uL LAB HEMATOLOGY METHOD 11/24/2024 4:57 AM EDT [facility] MCV 94 79 - 98 fL LAB HEMATOLOGY METHOD 11/24/2024 4:57 AM EDT [facility] MCH 30.4 26.0 - 32.0 pg LAB HEMATOLOGY METHOD 11/24/2024 4:57 AM EDT [facility] MCHC 32.3 30.7 - 35.5 g/dL LAB HEMATOLOGY METHOD 11/24/2024 4:57 AM EDT [facility] RDW 13.4 11.5 - 14.5 % LAB HEMATOLOGY METHOD 11/24/2024 4:57 AM EDT [facility] MPV 10.9 8.8 - 12.5 fL LAB HEMATOLOGY METHOD 11/24/2024 4:57 AM EDT [facility] nRBC 0.0 <=0.0 per 100 WBCs LAB HEMATOLOGY METHOD 11/24/2024 4:57 AM EDT [facility] Blood Venous blood specimen / Unknown Venipuncture / Unknown 11/24/2024 4:35 AM EDT 11/24/2024 4:51 AM EDT Anthony Abraham MD LAB BLOOD ORDERABLES Final Re sult [facility] [address] [place] [address] * XR Knee Right 1 or 2 Views (11/23/2024 1:12 PM EDT) Anatomical Region Laterality Modality Lower Extremities, Knee Right Digital Radiography Impressions 11/23/2024 1:39 PM EDT Interval right total knee arthroplasty in satisfactory alignment with no evidence of hardware failure and expected postoperative findings. CRITICAL RESULT: No. COMMUNICATION: Per this written report. Drafted by Anthony Bird on 11/23/2024 1:38 PM Final report signed by Anthony Bird on 11/23/2024 1:39 PM Narrative 11/23/2024 1:39 PM EDT CLINICAL INDICATION: TKA TECHNIQUE: XR KNEE RIGHT 1 OR 2 VIEWS COMPARISON: September 20, 2024 FINDINGS: Interval right total knee arthroplasty in satisfactory alignment. No evidence of hardware failure. Subcutaneous gas and gas in the joint space likely postoperative. Soft tissue swelling overlying the knee. No newly visualized fractures. Procedure Note Anthony Bird MD - 04/29/2025 CLINICAL INDICATION: TKA TECHNIQUE: XR KNEE RIGHT 1 OR 2 VIEWS COMPARISON: September 20, 2024 FINDINGS: Interval right total knee arthroplasty in satisfactory alignment. Noevidence of hardware failure. Subcutaneous gas and gas in the joint spacelikely postoperative. Soft tissue swelling overlying the knee. No newlyvisualized fractures. IMPRESSION: Interval right total knee arthroplasty in satisfactory alignment with noevidence of hardware failure and expected postoperative findings. CRITICAL RESULT: No. COMMUNICATION: Per this written report. Drafted by Anthony Bird on 11/23/2024 1:38 PM Final report signed by Anthony Bird on 11/23/2024 1:39 PM us Anthony Abraham MD IMG XR PROCEDURES Final Resul t documented in this encounter Visit Diagnoses Diagnosis Primary osteoarthritis of knees, bilateral- Primary Primary osteoarthritis of right knee Primary osteoarthritis of right knee Primary osteoarthritis of one knee, left documented in this encounter Admitting Diagnoses Diagnosis Primary osteoarthritis of knees, bilateral Primary osteoarthritis of right knee documented in this encounter Administered Medications Inactive Administered Medications - up to 3 most recent administrations Medication Order MAR Action Action Date Dose Rate Site acetaminophen (Tylenol) tablet 1,000 mg 1,000 mg, Oral, Every 8 hours scheduled, First dose on Fri11/23/24 at 1800, Until Discontinued, Routine, Recovery(Phase II-Outpatient)/On Unit(Inpatient) Given 11/24/2024 5:48 AM EDT 1,000 mg Given 11/23/2024 6:36 PM EDT 1,000 mg acetaminophen (Tylenol) tablet 1,000 mg 1,000 mg, Oral, Once, 1 dose, On Fri11/23/24 at 0930, Routine, Holding - Preprocedure Given 11/23/2024 9:07 AM EDT 1,000 mg apixaban (Eliquis) tablet 2.5 mg 2.5 mg, Oral, Once, 1 dose, On Fri11/24/24 at 0800, Routine, Recovery(Phase II-Outpatient)/On Unit(Inpatient) Given 11/24/2024 8:44 AM EDT 2.5 mg apixaban (Eliquis) tablet 2.5 mg 2.5 mg, Oral, 2 times daily, First dose on Fri11/24/24 at 2100, Until Discontinued, Routine, Recovery(Phase II-Outpatient)/On Unit(Inpatient) aztreonam (Azactam) 2 g in sodium chloride 0.9% 100 mL IVPB (vial adapter required) 2 g, Intravenous, Every 8 hours, 3 doses, First dose on Fri11/23/24 at 1800, Last dose on Fri11/24/24 at 1000, at 36.7 mL/hr, Administer over 3 Hours, Routine New Bag 11/24/2024 9:35 AM EDT 2 g 36.7 mL/hr New Bag 11/24/2024 2:34 AM EDT 2 g 36.7 mL/hr New Bag 11/23/2024 6:36 PM EDT 2 g 36.7 mL/hr bethanechol (Urecholine) tablet 20 mg 20 mg, Oral, Once as needed, 1 dose, Starting on Fri11/23/24 at 1305, Until Fri11/24/24 at 1521, Routine, Recovery(Phase II-Outpatient)/On Unit(Inpatient), other, post-op urinary retention bisacodyl (Dulcolax) suppository 10 mg 10 mg, Rectal, 2 times daily PRN, Starting on Fri11/23/24 at 1305, Until Fri11/24/24 at 1521, Routine, Recovery(Phase II-Outpatient)/On Unit(Inpatient), constipation, for constipation - use if no bowel movement after giving magnesium hydroxide calcium-vitamin D 500-200 MG-UNIT per tablet 1 tablet 1 tablet, Oral, 2 times daily with meals, First dose on Fri11/23/24 at 2100, Until Discontinued, Routine, Recovery(Phase II-Outpatient)/On Unit(Inpatient) Given 11/24/2024 8:44 AM EDT 1 tablet Given 11/23/2024 9:12 PM EDT 1 tablet dexamethasone (Decadron) injection 8 mg 8 mg, Intravenous, Once, 1 dose, On Fri11/23/24 at 0930, Routine, Holding - Preprocedure Given 11/23/2024 9:07 AM EDT 8 mg diphenhydrAMINE (Benadryl) tablet 12.5 mg 12.5 mg, Oral, Every 4 hours PRN, Starting on Fri11/23/24 at 1305, Until Fri11/24/24 at 1521, Routine, Recovery(Phase II-Outpatient)/On Unit(Inpatient), itching, sleep gabapentin (Neurontin) capsule 100 mg 100 mg, Oral, Every 8 hours, First dose on Fri11/23/24 at 1600, Until Discontinued, Routine, Recovery(Phase II-Outpatient)/On Unit(Inpatient) Given 11/24/2024 8:44 AM EDT 100 mg Given 11/23/2024 11:48 PM EDT 100 mg Given 11/23/2024 4:48 PM EDT 100 mg gabapentin (Neurontin) capsule 300 mg 300 mg, Oral, Once, 1 dose, On Fri11/23/24 at 0930, Routine, Holding - Preprocedure Given 11/23/2024 9:07 AM EDT 300 mg HYDROmorphone (Dilaudid) injection 0.5 mg 0.5 mg, Intravenous, Every 6 hours PRN, Starting on Fri11/23/24 at 1305, Until Fri11/24/24 at 1521, Routine, Recovery(Phase II-Outpatient)/On Unit(Inpatient), severe pain, pain score 9-10 ketorolac (Toradol) injection 15 mg 15 mg, Intravenous, Every 6 hours scheduled, 8 doses, First dose on Fri11/23/24 at 1400, Last dose on Fri11/25/24 at 0600, Routine, Recovery(Phase II-Outpatient)/On Unit(Inpatient) Given 11/24/2024 5:49 AM EDT 15 mg Given 11/23/2024 11:48 PM EDT 15 mg Given 11/23/2024 6:36 PM EDT 15 mg ketorolac (Toradol) injection 15 mg 15 mg, Intravenous, Once, 1 dose, On Fri11/23/24 at 0930, Routine, Holding - Preprocedure Given 11/23/2024 9:07 AM EDT 15 mg lactated Ringer's infusion 75 mL/hr, Intravenous, Continuous, Starting on Fri11/23/24 at 0930, Until Fri11/24/24 at 1521, Routine Continued by Anesthesia 11/23/2024 10:47 AM EDT 75 mL/hr New Bag 11/23/2024 8:57 AM EDT 75 mL/hr 75 mL/hr lactated Ringer's infusion 100 mL/hr, Intravenous, Continuous, Starting on Fri11/23/24 at 1400, Until Fri11/24/24 at 0054, Routine New Bag 11/23/2024 2:55 PM EDT 100 mL/hr 100 mL /hr magnesium hydroxide (Milk of Magnesia) 400 MG/5ML suspension 30 mL 30 mL, Oral, 2 times daily PRN, Starting on Fri11/23/24 at 1305, Until Fri11/24/24 at 1521, Routine, Recovery(Phase II-Outpatient)/On Unit(Inpatient), constipation, for constipation - use as first line agent ondansetron (Zofran) injection 4 mg 4 mg, Intravenous, Every 6 hours PRN, Starting on Fri11/23/24 at 1305, Until Fri11/24/24 at 1521, Routine, Recovery(Phase II-Outpatient)/On Unit(Inpatient), nausea, vomiting oxyCODONE (Roxicodone) immediate release tablet 5 mg 5 mg, Oral, Every 4 hours PRN, Starting on Fri11/23/24 at 1305, Until Fri11/24/24 at 1521, Routine, Recovery(Phase II-Outpatient)/On Unit(Inpatient), moderate pain, severe pain, Severe pain 5-8 oxyCODONE (Roxicodone) immediate release tablet 5 mg 5 mg, Oral, Once, 1 dose, On Fri11/23/24 at 0930, Routine, Holding - Preprocedure Given 11/23/2024 9:07 AM EDT 5 mg oxyCODONE (Roxicodone) immediate release tablet 5 mg 5 mg, Oral, Once as needed, 2 doses, Starting on Fri11/23/24 at 1148, Until Fri11/23/24 at 1336, Routine, Recovery (Phase I only), pain score of 3-5 out of 10 Given 11/23/2024 1:36 PM EDT 5 mg Given 11/23/2024 12:50 PM EDT 5 mg pantoprazole (Protonix) EC tablet 40 mg 40 mg, Oral, Daily before breakfast, First dose on Fri11/23/24 at 1400, Until Discontinued, Routine, Recovery(Phase II-Outpatient)/On Unit(Inpatient) Given 11/24/2024 8:44 AM EDT 40 mg Given 11/23/2024 2:52 PM EDT 40 mg polyethylene glycol (Miralax) packet 17 g 17 g, Oral, Daily with breakfast, First dose on Fri11/24/24 at 0800, Until Discontinued, Routine, Recovery(Phase II-Outpatient)/On Unit(Inpatient) Given 11/24/2024 8:44 AM EDT 17 g Povidone-Iodine 5 % swab solution 1 Application Nasal, Once, 1 dose, On Fri11/23/24 at 0930, Routine Given 11/23/2024 8:56 AM EDT 1 Application scopolamine (Transderm-Scop) patch 1 patch 1 patch, Transdermal, Once, 1 dose, On Fri11/23/24 at 0930, Routine, Holding - PreprocedureIndicat ions:Surgery Medication Applied 11/23/2024 9:07 AM EDT 1 patch Behind Right Ear senna-docusate (Dena-Colace) 8.6-50 MG per tablet 2 tablet 2 tablet, Oral, Nightly, First dose on Fri11/23/24 at 2100, Until Discontinued, Routine, Recovery(Phase II-Outpatient)/On Unit(Inpatient) Given 11/23/2024 9:12 PM EDT 2 tablets traMADol (Ultram) tablet 100 mg 100 mg, Oral, Every 8 hours scheduled, First dose on Fri11/23/24 at 1400, Until Discontinued, Routine, Recovery(Phase II-Outpatient)/On Unit(Inpatient) Given 11/24/2024 5:48 AM EDT 100 mg Given 11/23/2024 9:11 PM EDT 100 mg Given 11/23/2024 2:51 PM EDT 100 mg traMADol (Ultram) tablet 50 mg 50 mg, Oral, Every 12 hours PRN, Starting on Fri11/23/24 at 1305, Until Fri11/24/24 at 1521, Routine, Recovery(Phase II-Outpatient)/On Unit(Inpatient), severe pain, pain score 3-5. use prior to oxycodone or hydromorphone traMADol (Ultram) tablet 50 mg 50 mg, Oral, Once, 1 dose, On Fri11/23/24 at 0930, Routine, Holding - Preprocedure Given 11/23/2024 9:07 AM EDT 50 mg vancomycin in NS (Vancocin) IVPB 1,250 mg 1,250 mg, Intravenous, Once, 1 dose, On Fri11/23/24 at 0930, at 200 mL/hr, Routine New Bag 11/23/2024 9:07 AM EDT 1,250 mg 200 mL/hr documented in this encounter Active and Recently Administered Medications Times are shown in EDT. Scheduled Medication Order 11/22/2024 11/23/2024 11/24/2024 acetaminophen (Tylenol) tablet 1,000 mg 1,000 mg, Oral, Every 8 hours scheduled, First dose on Fri11/23/24 at 1800, Until Discontinued, Routine, Recovery(Phase II-Outpatient)/On Unit(Inpatient) 1836 (Given - Provider: Elan Beltre RN) 0548 (Given - Provider: May Yarbrough)1400 (Canceled Entry - Provider: Automatic Discharge Provider - Comment: Automatically canceled at discontinue of medication order) acetaminophen (Tylenol) tablet 1,000 mg (COMPLETED) 1,000 mg, Oral, Once, 1 dose, On Fri11/23/24 at 0930, Routine, Holding - Preprocedure 0907 (Given - Provider: Alicia Mercado RN) apixaban (Eliquis) tablet 2.5 mg (COMPLETED)(Linked Group 1) 2.5 mg, Oral, Once, 1 dose, On Fri11/24/24 at 0800, Routine, Recovery(Phase II-Outpatient)/On Unit(Inpatient) 0844 (Given - Provid er: Linda Roberson) apixaban (Eliquis) tablet 2.5 mg(Linked Group 1) 2.5 mg, Oral, 2 times daily, First dose on Fri11/24/24 at 2100, Until Discontinued, Routine, Recovery(Phase II-Outpatient)/On Unit(Inpatient) aztreonam (Azactam) 2 g in sodium chloride 0.9% 100 mL IVPB (vial adapter required) (COMPLETED) 2 g, Intravenous, Every 8 hours, 3 doses, First dose on Fri11/23/24 at 1800, Last dose on Fri11/24/24 at 1000, at 36.7 mL/hr, Administer over 3 Hours, Routine 1836 (New Bag - Provider: Elan Beltre, MALCOL[place]) 0234 (New Bag - Provider: Pat Yarbrough)0935 (New Bag - Provider: Linda Roberson) calcium-vitamin D 500-200 MG-UNIT per tablet 1 tablet 1 tablet, Oral, 2 times daily with meals, First dose on Fri11/23/24 at 2100, Until Discontinued, Routine, Recovery(Phase II-Outpatient)/On Unit(Inpatient) 2112 (Given - Provider: Pat Yarbrough) 0844 (Given - Provider: Linda Roberson) ceFAZolin (Ancef) injection 2 g (COMPLETED) 2 g, Intravenous, Once, 1 dose, On Fri11/23/24 at 0930, Routine, Anesthesia Intraprocedure 1057 (Given - Provider: Charlotte Jennings CRNA) dexamethasone (Decadron) injection 8 mg (COMPLETED) 8 mg, Intravenous, Once, 1 dose, On Fri11/23/24 at 0930, Routine, Holding - Preprocedure 0907 (Given - Provider: Alicia Mercado RN) gabapentin (Neurontin) capsule 100 mg 100 mg, Oral, Every 8 hours, First dose on Fri11/23/24 at 1600, Until Discontinued, Routine, Recovery(Phase II-Outpatient)/On Unit(Inpatient) 1648 (Given - Provider: Elan Beltre RN)2348 (Given - Provider: May Yarbrough) 0844 (Given - Provider: Linda Roberson) gabapentin (Neurontin) capsule 300 mg (COMPLETED) 300 mg, Oral, Once, 1 dose, On Fri11/23/24 at 0930, Routine, Holding - Preprocedure 0907 (Given - Provider: Alicia Mercado RN) ketorolac (Toradol) injection 15 mg 15 mg, Intravenous, Every 6 hours scheduled, 8 doses, First dose on Fri11/23/24 at 1400, Last dose on Fri11/25/24 at 0600, Routine, Recovery(Phase II-Outpatient)/On Unit(Inpatient) 1452 (Given - Provider: Elan Beltre RN)1836 (Given - Provider: Elan Beltre, MALCOLM)2348 (Given - Provider: May Yarbrouhg) 0549 (Given - Provider: May Yarbrough)1316 (Not Given - Provider: Linda Roberson - Reason: Hold for condition: must add comment - Comment: IV d/c due to discharging) ketorolac (Toradol) injection 15 mg (COMPLETED) 15 mg, Intravenous, Once, 1 dose, On Fri11/23/24 at 0930, Routine, Holding - Preprocedure 0907 (Given - Provider: Alicia Mercado RN) oxyCODONE (Roxicodone) immediate release tablet 5 mg (COMPLETED) 5 mg, Oral, Once, 1 dose, On Fri11/23/24 at 0930, Routine, Holding - Preprocedure 0907 (Given - Provider: Alicia Mercado, MALCOL[place]) pantoprazole (Protonix) EC tablet 40 mg 40 mg, Oral, Daily before breakfast, First dose on Fri11/23/24 at 1400, Until Discontinued, Routine, Recovery(Phase II-Outpatient)/On Unit(Inpatient) 1452 (Given - Provider: Elan Beltre RN) 0844 (Given - Provider: Linda Roberson) polyethylene glycol (Miralax) packet 17 g 17 g, Oral, Daily with breakfast, First dose on Fri11/24/24 at 0800, Until Discontinued, Routine, Recovery(Phase II-Outpatient)/On Unit(Inpatient) 0844 (Given - Provid er: Linda Roberson) Povidone-Iodine 5 % swab solution 1 Application (COMPLETED) Nasal, Once, 1 dose, On Fri11/23/24 at 0930, Routine 0856 (Given - Provider: Alicia Mercado, MALCOL[place]) rosuvastatin (Crestor) tablet 20 mg 20 mg, Oral, Nightly, First dose on Fri11/24/24 at 2100, Until Discontinued, Routine scopolamine (Transderm-Scop) patch 1 patch 1 patch, Transdermal, Once, 1 dose, On Fri11/23/24 at 0930, Routine, Holding - Preprocedure 0907 (Medication Applied - Provider: Alicia Mercado, MALCOL[place]) 1321 (Due: Medication Removed - Provider: Automatic Discharge Provider - Comment: Time automatically adjusted from order being discontinued) senna-docusate (Dena-Colace) 8.6-50 MG per tablet 2 tablet 2 tablet, Oral, Nightly, First dose on Fri11/23/24 at 2100, Until Discontinued, Routine, Recovery(Phase II-Outpatient)/On Unit(Inpatient) 2112 (Given - Provider: Pat Yarbrough) traMADol (Ultram) tablet 100 mg 100 mg, Oral, Every 8 hours scheduled, First dose on Fri11/23/24 at 1400, Until Discontinued, Routine, Recovery(Phase II-Outpatient)/On Unit(Inpatient) 145 (Given - Provider: Elan Beltre RN)2110 (Given - Provider: Pat Yarbrough) 0548 (Given - Provider: Pat Yarbrough)1400 (Canceled Entry - Provider: Automatic Discharge Provider - Comment: Automatically canceled at discontinue of medication order) traMADol (Ultram) tablet 50 mg (COMPLETED) 50 mg, Oral, Once, 1 dose, On Fri11/23/24 at 0930, Routine, Holding - Preprocedure 0907 (Given - Provider: Alicia Mercado RN) tranexamic acid (Cyklokapron) IVPB 1,000 mg (COMPLETED) 1,000 mg, Intravenous, Once, 1 dose, On Fri11/23/24 at 0930, Routine, Anesthesia Intraprocedure 1057 (Given - Provider: Charlotte Jennings CRNA)1206 (Given - Provider: Charlotte Jennings CRNA) vancomycin in NS (Vancocin) IVPB 1,250 mg (COMPLETED) 1,250 mg, Intravenous, Once, 1 dose, On Fri11/23/24 at 0930, at 200 mL/hr, Routine 0907 (New Bag - Provider: Alicia Mercado RN) Continuous Medication Order 11/22/2024 11/23/2024 11/24/2024 lactated Ringer's infusion 75 mL/hr, Intravenous, Continuous, Starting on Fri11/23/24 at 0930, Until Fri11/24/24 at 1521, Routine 0857 (New Bag - Provider: Alicia Mercado RN)1047 (Continued by Anesthesia - Provider: Charlotte Jennings CRNA) lactated Ringer's infusion 100 mL/hr, Intravenous, Continuous, Starting on Fri11/23/24 at 1400, Until Fri11/24/24 at 0054, Routine 1455 (New Bag - Provider: Itz Beltre, MALCOL[place]) PRN Medication Order 11/22/2024 11/23/2024 11/24/2024 bethanechol (Urecholine) tablet 20 mg 20 mg, Oral, Once as needed, 1 dose, Starting on Fri11/23/24 at 1305, Until Fri11/24/24 at 1521, Routine, Recovery(Phase II-Outpatient)/On Unit(Inpatient), other, post-op urinary retention bisacodyl (Dulcolax) suppository 10 mg 10 mg, Rectal, 2 times daily PRN, Starting on Fri11/23/24 at 1305, Until Fri11/24/24 at 1521, Routine, Recovery(Phase II-Outpatient)/On Unit(Inpatient), constipation, for constipation - use if no bowel movement after giving magnesium hydroxide bupivacaine-EPINEPHrine PF (Marcaine w/EPI) 0.5% -[id number] injection (CANCELED) As needed, Starting on Fri11/23/24 at 1114, Until Fri11/23/24 at 1243, Routine, Intraprocedure 1200 (Given - Provider: Anthony Abraham MD) diphenhydrAMINE (Benadryl) tablet 12.5 mg 12.5 mg, Oral, Every 4 hours PRN, Starting on Fri11/23/24 at 1305, Until Fri11/24/24 at 1521, Routine, Recovery(Phase II-Outpatient)/On Unit(Inpatient), itching, sleep HYDROmorphone (Dilaudid) injection 0.5 mg 0.5 mg, Intravenous, Every 6 hours PRN, Starting on Fri11/23/24 at 1305, Until Fri11/24/24 at 1521, Routine, Recovery(Phase II-Outpatient)/On Unit(Inpatient), severe pain, pain score 9-10 magnesium hydroxide (Milk of Magnesia) 400 MG/5ML suspension 30 mL 30 mL, Oral, 2 times daily PRN, Starting on Fri11/23/24 at 1305, Until Fri11/24/24 at 1521, Routine, Recovery(Phase II-Outpatient)/On Unit(Inpatient), constipation, for constipation - use as first line agent ondansetron (Zofran) injection 4 mg 4 mg, Intravenous, Every 6 hours PRN, Starting on Fri11/23/24 at 1305, Until Fri11/24/24 at 1521, Routine, Recovery(Phase II-Outpatient)/On Unit(Inpatient), nausea, vomiting oxyCODONE (Roxicodone) immediate release tablet 5 mg 5 mg, Oral, Every 4 hours PRN, Starting on Fri11/23/24 at 1305, Until Fri11/24/24 at 1521, Routine, Recovery(Phase II-Outpatient)/On Unit(Inpatient), moderate pain, severe pain, Severe pain 5-8 1457 (Not Given - Provider: Elan Beltre RN - Reason: Hold for condition: must add comment - Comment: Given downstairs in PACU) oxyCODONE (Roxicodone) immediate release tablet 5 mg (COMPLETED)(Linked Group 2) 5 mg, Oral, Once as needed, 2 doses, Starting on Fri11/23/24 at 1148, Until Fri11/23/24 at 1336, Routine, Recovery (Phase I only), pain score of 3-5 out of 10 1250 (Given - Provider: Latisha Gu RN - Comment: patient wants to stay ahead of pain)1336 (Given - Provider: Latisha Gu RN) traMADol (Ultram) tablet 50 mg 50 mg, Oral, Every 12 hours PRN, Starting on Fri11/23/24 at 1305, Until Fri11/24/24 at 1521, Routine, Recovery(Phase II-Outpatient)/On Unit(Inpatient), severe pain, pain score 3-5. use prior to oxycodone or hydromorphone Linked Groups Order Group 1: apixaban (Eliquis) tablet 2.5 mg (COMPLETED)Jump to med 2.5 mg, Oral, Once, 1 dose, On Fri11/24/24 at 0800, Routine, Recovery(Phase II-Outpatient)/On Unit(Inpatient) Followed by apixaban (Eliquis) tablet 2.5 mgJump to med 2.5 mg, Oral, 2 times daily, First dose on Fri11/24/24 at 2100, Until Discontinued, Routine, Recovery(Phase II-Outpatient)/On Unit(Inpatient) Group 2: oxyCODONE (Roxicodone) immediate release tablet 5 mg (COMPLETED)Jump to med 5 mg, Oral, Once as needed, 2 doses, Starting on Fri11/23/24 at 1148, Until Fri11/23/24 at 1336, Routine, Recovery (Phase I only), pain score of 3-5 out of 10 Or oxyCODONE (Roxicodone) immediate release tablet 10 mg (COMPLETED) 10 mg, Oral, Once as needed, 2 doses, Starting on Fri11/23/24 at 1148, Until Fri11/23/24 at 1336, Routine, Recovery (Phase I only), pain score of 6-8 out of 10 documented in this encounter Additional Health Concerns Active Problems Noted Date Diagnosed Date Autogenerated Problem 11/22/2024 Assessment Noted Time A fall risk assessment has been complete d for the patient 09/20/2024 10:08 AM EST A Body Mass Index follow-up plan has been documented for the patient 11/24/2024 12:23 PM EDT documented as of this encounter Care Teams Mail Processing Associate Relationship Specialty Start Date End Date Siva Swann MD [address] [place] [id number] PCP - General Internal Medicine 12/03/21 documented as of this encounter
--- OUTSIDE RECORDS SUMMARY | 2024-11-23 10:47 | XMS_ITS | Encounter Summary ---
Author Organization [facility] Address [address] [place] [address] Care Team Providers Care Brine Process Operator Name Role Phone Siva Swann MD Primary Care Provider + [phone] Reason for Visit * Auth/Cert (Routine) Specialty Diagnoses / Procedures Referred By Contac t Referred To Contact Diagnoses Primary osteoarthritis of knees, bilateral Primary osteoarthritis of knees, bilateral [M17.0] Procedures VT TOTAL KNEE ARTHROPLASTY ARTHROPLASTY, KNEE, TOTAL Anthony Abraham MD [address] [facility] [address] [place] [address] Phone: tel: fax: [facility] [place] Operating Room [address] [place] [address] Phone: tel: Referral ID Status Reason Start Date Expiration Date Visits Re quested Visits Authorized [id number] 1 1 Encounter Details Date Type Department Care Team (Late st Contact Info) Description 11/23/2024 10:47 AM EDT Anesthesia Event [facility] [place] Operating Room [address] [place] [address] Charlotte Jennings CRNA [address] [place] [address] Mychal Do MD [address] [place] [address] Anesthesia Record Procedure Summary Procedure Name Responsible Anesthesiologist Anesthesia Start Time Anesthesia Stop Time ARTHROPLASTY, KNEE, TOTAL (Right: Knee) Charlotte Jennings CRNA 11/23/24 1047 11/23/24 1249 Events Date Time Event Comment 11/23/2024 1033 1047 An Start The patient was reevaluated immediately before sedation and remains eligible for anesthesia plan. 1049 In Room 1050 An Start Data 1056 An Induction The patient was reevaluated immediately before moderate or deep sedation use and before anesthesia induction. 1058 Anesthesia Ready 1112 An Tourn Inflated 300 mmHg 1113 Proc Start 1239 An Tourn Deflated 1240 Proc Fin 1241 an stop data 1242 Out of Room 1244 Handoff to Receiving I compl eted my handoff to the receiving clinician during which we: 1. Identified the patient 2. Identified the responsible provider 3. Reviewed the pertinent medical history 4. Discussed the surgical course 5. Reviewed intra-op anesthesia management and issues during anesthesia 6. Set expectations for post-procedure period 7. Allowed opportunity for questions and acknowledgement of understanding. 1249 An Stop Meds Name Total propofol (Diprivan) injection 10 mg/mL 3 0 mg propofol (Diprivan) infusion 10 mg/mL 22 6.88 mg lidocaine PF (Xylocaine-MPF) 2% 50 mg ondansetron (Zofran) injection 2 mg/mL 4 mg fentaNYL (SUBLIMAZE) 100 mcg bupivacaine in dextrose (MARCAINE SPINAL ) 0.75-8.25 % 1.6 mL ceFAZolin (Ancef) injection 2 g 2 g tranexamic acid (Cyklokapron) IVPB 1,000 mg 2,000 mg lactated Ringer's infusion 0 mL * Agents Name O2 * Blood No blood administrations on file. Lines, Drains, and Airways Type Details Placement Removal Wound 11/23/24; 1114; N; Y es; Surgical; Open Surg (dressed with prineo, abds, pro net, tima wrap); Knee; Anterior, Right 11/23/24 1114 by Leidy Negron RN Peripheral IV Placement Date: 10/27 04/21; Placement Time: 0853; Catheter Size: 20 G; Orientation: Posterior, Right; Location: Wrist; Site Prep: Chlorhexidine ; Local Anesth: None; Inserted by: Rogelio FOWLER; Insertion Attempts: 1; Patient Tolerance: Tolerated well; Removal Date: 11/25/24; Removal Time: 1321 04/29/25 0853 by Alicia Mercado RN 11/25/24 1321 by Discharge Provider, Automatic documented in this encounter Social History Tobacco Use Types Packs/Day Years [...] on file documented as of this encounter Functional Status * Calculated C-SSRS Risk Score (Lifetime/Recent) Answer Date of Assessment Author No Risk Indicated 11/23/2024 1:53 PM EDT Elan Clemente RN * Question Answer Date of Assessment Author 1. Wish to be (Past 1 Month) No 11/23/2024 1:53 PM EDT Elan Beltre RN 2. Non-Specific Active Suici shanika Thoughts (Past 1 Month) No 11/23/2024 1:53 PM EDT Saeid Beltre RN 6. Suicidal Behavior (Lifetime) No 1:53 PM EDT Elan Beltre RN documented as of this encounter Miscellaneous Notes * Anesthesia Postprocedure Evaluation - Charlotte Jennings CRNA - 11/23/2024 2:54 PM EDT Patient: Italia Maravilla Anesthesia Type: MAC, spinal Vitals Value Taken Time BP 129/62 11/23/24 13:30 Temp 36.4 ??C (97.5 ??F) 11/23/24 13:30 Pulse 63 11/23/24 13:31 Resp 16 11/23/24 13:31 SpO2 94 % 11/23/24 13:31 Vitals shown include unfiled device data. Anesthesia Post Evaluation Patient location during evaluation: PACU Patient participation: complete - patient participated Level of consciousness: awake Pain management: adequate (pain score 0-3) Airway patency: natural airway Cardiovascular status: acceptable and hemodynamically stable Respiratory status: acceptable, room air and spontaneous ventilation Hydration status: acceptable Nausea/Vomiting: No No notable events documented. * Anesthesia Procedure Notes - Jone Denis MD - 11/23/2024 10:35 AM EDT Associated Order(s): Spinal Block Spinal Block Patient location during procedure: pre-op Start time: 11/23/2024 10:28 AM End time: 11/23/2024 10:34 AM Reason for block: post-op pain management Block is at surgeon's request Staffing Performed: Resident Anesthesiologist: Mychal Do MD Resident: Jone Denis MD Preanesthetic Checklist Completed: patient identified, IV checked, site marked, risks and benefits discussed, surgical consent, monitors and equipment checked, pre-op evaluation and timeout performed Spinal Block Patient position: sitting Prep: ChloraPrep Approach: midline Location: L3-4 Injection technique: single-shot Needle Needle type: pencil-point Needle gauge: 25 G Needle length: 3.5 in Medications Administered fentaNYL (SUBLIMAZE) - Intrathecal 100 mcg - 11/23/2024 10:28:00 AM bupivacaine in dextrose (MARCAINE SPINAL) 0.75-8.25 % - Intrathecal 1.6 mL - 11/23/2024 10:28:00 AM Assessment Sensory level: adequate Events: cerebrospinal fluid Additional Notes Iliac crest palpated and line drawn to demarcate the L4 spinous process level. Interspaces were palpated above and below this to identify the best interspace. Spinal performed with 1.6 ml of hyperbaric bupivacaine. Good aspiration of CSF before and after injection. Patient tolerated procedure well without complication. Cosigned by Mychal Do MD at 11/23/2024 10:37 AM EDT Associated attestation - Mychal Do MD - 11/23/2024 10:37 AM EDT I was present during all critical and carrasquillo portions of the procedure(s) and immediately available [facility] services the entire duration. See resident note for details. * Anesthesia Preprocedure Evaluation - Mychal Do MD - 11/23/2024 9:04 AM EDT Patient: Italia Maravilla Procedure Information Date/Time: 11/23/24 1115 Procedure: ARTHROPLASTY, KNEE, TOTAL (Right: Knee) Location: [address] [place] [address] OR Surgeons: Anthony Abraham MD Anesthesiologist: Mychal Do MD STAFF PHYSICIAN: Charlotte Jennings CRNA HPI Italia Maravilla is a 69 y.o. female who presents with Primary osteoarthritis of knees, bilateral now scheduled for ARTHROPLASTY, KNEE, TOTAL (Right). Past medical history: DM, obesity, HTN, HLD, vertigo, arthritis, GERD, hx of renal cancer s/p partial nephrectomy Past surgical history: cysto, ccy, colonoscopy, foot sx, partial nephrectomy, hernia repair, hysterectomy, tubal Past anesthesia history: The pt notes a hx of PONV with anesthesia in the past. NPO: No Diabetes: No GLP1 agonist: No Beta Juanjose: No Anti-coagulation/anti-platelet: No METS/Activity Level: >4 ALLERGIES Allergies[1] NPO STATUS AIRWAY HISTORY Medical History[2] MEDICATIONS Outpatient Prescriptions Prior to Admission[3] Current Outpatient Medications Medication Instructions acetaminophen (TYLENOL 8 HOUR) 650 mg, Every 8 hours PRN Calcium Carbonate-Vitamin D 250-3.125 MG-MCG tablet Take by mouth. diclofenac (Voltaren) 75 MG EC tablet 2 times daily estradiol (Estrace) 0.1 MG/GM vaginal cream famotidine (PEPCID) 40 mg, Oral, Every evening fluticasone (Flonase) 50 MCG/ACT nasal spray irbesartan-hydroCHLOROthiazide (Avalide) 300-12.5 MG tablet 1 tablet, Daily oxyCODONE (ROXICODONE) 5 mg, Oral, Every 6 hours PRN rosuvastatin (CRESTOR) 20 mg, Daily VITAMIN D PO 400 Int'l Units/day, Daily Scheduled acetaminophen, 1,000 mg, Oral, Once ceFAZolin, 2 g, Intravenous, Once dexamethasone, 8 mg, Intravenous, Once gabapentin, 300 mg, Oral, Once ketorolac, 15 mg, Intravenous, Once oxyCODONE, 5 mg, Oral, Once scopolamine, 1 patch, Transdermal, Once sodium chloride, 10 mL, Intravenous, q12h AND sodium chloride, 10 mL, Intravenous, PRN Insert peripheral IV, , , Once AND Saline lock IV, , , Once AND sodium chloride, 10 mL, Intravenous, q12h AND sodium chloride, 10 mL, Intravenous, PRN traMADol, 50 mg, Oral, Once tranexamic acid, 1,000 mg, Intravenous, Once tranexamic acid, 1,000 mg, Intravenous, Once vancomycin, 1,250 mg, Intravenous, Once PRNs PRN medications: lidocaine, sodium chloride AND sodium chloride, Insert peripheral IV AND Saline lock IV AND sodium chloride AND sodium chloride SURGICAL HX: Surgical History[4] FUNCTIONAL CAPACITY SOCIAL HX: Social History[5] OBJECTIVE DATA LABS Type and Screen No results found for: ABO COVID No results found for: SARSCOV2 Lab Results Component Value Date WBC 7.86 11/08/2024 HGB 14.8 11/08/2024 HCT 46.4 (H) 11/08/2024 MCV 93 11/08/2024 PLT 299 11/08/2024 Lab Results Component Value Date GLUCOSE 104 (H) 11/08/2024 CALCIUM 10.8 (H) 11/08/2024 NA 141 11/08/2024 K 5.1 (H) 11/08/2024 CO2 27 11/08/2024 CL 104 11/08/2024 BUN 15 11/08/2024 CREATININE 0.78 11/08/2024 Diabetic Labs Lab Results Component Value Date HGBA1C 5.6 11/08/2024 Lab Results Component Value Date HGBA1C 5.6 11/08/2024 ABG No results found for: PHART , BDR9YLW , PO2ART , SO2ART , BEART , LKA7QIV , HCTART , SODIUMART , POTASSIUMART , POCTCL , POCGLU , IONCALART , LACTATE Lab Results Component Value Date PH 5.5 12/03/2021 NA 141 11/08/2024 EKG No results found for this or any previous visit (from the past 4464 hours). ECHO No echocardiogram results found for the past 12 months PFTs No results found for: DXK7BJA , ZOT9IISG , EYL4CAO , FVCPRED Relevant Problems Other (+) Primary osteoarthritis of right knee ROS Anesthesia: history of anesthetic complications. Cardiovascular: hypertension: Genitourinary: chronic renal disease: Endocrine/Metabolic: diabetes mellitus. Clinical information reviewed: Med Hx Tobacco Allergies Surg Hx Fam Hx Soc Hx OB Status NPO Status Date of Last Liquid: 11/22/24 Time of Last Liquid: 2299 Date of Last Solid: 11/22/24 Time of Last Solid: 2199 Last Intake Type: Clear fluids, Food Time of Last Void: 838 Physical Exam Anesthesia Plan ASA 2 Plan was reviewed with: attending and STAFF PHYSICIAN Anesthesia technique(s) discussed with the patient/family: general, MAC and spinal Anesthesia plan agreed upon was: MAC and spinal Anesthetic plan and risks discussed with patient. Additional Equipment Requests [1] Allergies Allergen Reactions Cephalexin Hives [2] Past Medical History: Diagnosis Date Diabetes mellitus (CMS/HCC) Family history of DVT mother HLD (hyperlipidemia) Hypertension PONV (postoperative nausea and vomiting) Renal cell carcinoma 2013 s/p left partial nephrectomy [3] Medications Prior to Admission Medication Sig Dispense Refill Last Dose/Taking rosuvastatin (Crestor) 20 MG tablet Take 1 tablet by mouth daily. 11/23/2024 Morning acetaminophen (Tylenol 8 Hour) 650 MG ER tablet Take 1 tablet by mouth every 8 hours as needed for mild pain. Do not crush, chew, or split. Calcium Carbonate-Vitamin D 250-3.125 MG-MCG tablet Take by mouth. diclofenac (Voltaren) 75 MG EC tablet in the morning and before bedtime. estradiol (Estrace) 0.1 MG/GM vaginal cream famotidine (Pepcid) 40 MG tablet Take 1 tablet by mouth every evening. fluticasone (Flonase) 50 MCG/ACT nasal spray irbesartan-hydroCHLOROthiazide (Avalide) 300-12.5 MG tablet Take 1 tablet by mouth in the morning. Only takes 1/2 pill. VITAMIN D PO Take 400 Int'l Units/day by mouth daily. [4] Past Surgical History: Procedure Laterality Date BLADDER SURGERY N/A Bladder surgery from [facility] CHOLECYSTECTOMY N/A Cholecystectomy from Pixelated COLONOSCOPY FOOT SURGERY Left HERNIA REPAIR HYSTERECTOMY PARTIAL NEPHRECTOMY Left Partial Nephrectomy from [facility]ated TONSILLECTOMY N/A Tonsillectomy from Pixelated TUBAL LIGATION N/A Tubal Ligation from Pixelated [5] Social History Tobacco Use Smoking status: Never Smokeless tobacco: Never Substance Use Topics Alcohol use: No Comment: Alcoholic Drinks/day: Never Drank Alcohol Drug use: Never documented in this encounter Plan of Treatment Upcoming Encounters Date Type Department Care Team (Latest Contact Info) Description 02/01/2025 8:45 AM EDT Hospital Encounter [facility] [place] Operating Room [address] [place] [address] Anthony Abraham MD [address] [place] [phone] 02/01/2025 8:45 AM EDT - 02/01/2025 11:05 AM EDT Surgery [facility] [place] Operating Room [address] [place] [address] Anthony Abraham MD [address] [place] [phone] ARTHROPLASTY, KNEE, TOTAL [01281 (CPT )] 02/16/2025 10:00 AM EDT Office Visit [facility] [address], [address] [place] [address] Isaiah Anne PA [address] [place] [address] 03/21/2025 9:40 AM EDT Office Visit Medical [facility] [address], [address] [place] [address] Anthony Abraham MD [address] [place] [address] Scheduled Procedures Name Priority Associated Diagnoses Date/Ti me ARTHROPLASTY, KNEE, TOTAL Primary osteoarthritis of one knee, left 02/01/2025 8:45 AM EDT documented as of this encounter Goals Goal Patient Goal Type Associated Problems Recent Progress Patient-Stated? Author Autogenera damien Goal Care Plan Autogenerated Problem No Marta Espinoza documented as of this encounter Procedures Procedure Name Priority Date/Time Associated Diagnosis Comments PB ANESTHESIA NON-TIMED PROCEDURE PLACEHOLDER Routine 11/23/2024 10:28 AM EDT documented in this encounter Results * PB ANESTHESIA NON-TIMED PROCEDURE PLACEHOLDER (11/23/2024 10:28 AM EDT) Narrative Mychal Do MD - 11/23/2024 10:28 AM EDT Mychal Do MD 11/23/2024 10:37 AM Spinal Block Patient location during procedure: pre-op Start time: 11/23/2024 10:28 AM End time: 11/23/2024 10:34 AM Reason for block: post-op pain management Block is at surgeon's request Staffing Performed: Resident Anesthesiologist: Mychal Do MD Resident: Jone Denis MD Preanesthetic Checklist Completed: patient identified, IV checked, site marked, risks and benefits discussed, surgical consent, monitors and equipment checked, pre-op evaluation and timeout performed Spinal Block Patient position: sitting Prep: ChloraPrep Approach: midline Location: L3-4 Injection technique: single-shot Needle Needle type: pencil-point Needle gauge: 25 G Needle length: 3.5 in Medications Administered fentaNYL (SUBLIMAZE) - Intrathecal 100 mcg - 11/23/2024 10:28:00 AM bupivacaine in dextrose (MARCAINE SPINAL) 0.75-8.25 % - Intrathecal 1.6 mL - 11/23/2024 10:28:00 AM Assessment Sensory level: adequate Events: cerebrospinal fluid Additional Notes Iliac crest palpated and line drawn to demarcate the L4 spinous process level. Interspaces were palpated above and below this to identify the best interspace. Spinal performed with 1.6 ml of hyperbaric bupivacaine. Good aspiration of CSF before and after injection. Patient tolerated procedure well without complication. us Mychal Do MD ANESTHESIA ORDERABLES Eli yadira Result documented in this encounter Visit Diagnoses Not on filedocumented in this encounter Administered Medications Inactive Administered Medications - up to 3 most recent administrations Medication Order MAR Action Action Date Dose Rate Site bupivacaine in dextrose (Marcaine Spinal) 0.75-8.25 % injection Intrathecal, Once PRN Procedure, Starting on Fri11/23/24 at 1028, Until Fri11/23/24 at 1028, Routine, Anesthesia Intraprocedure Given 11/23/2024 10:28 AM EDT 1.6 mL ceFAZolin (Ancef) injection 2 g 2 g, Intravenous, Once, 1 dose, On Fri11/23/24 at 0930, Routine, Anesthesia Intraprocedure Given 11/23/2024 10:57 AM EDT 2 g fentaNYL (Sublimaze) injection Intrathecal, Once PRN Procedure, Starting on Fri11/23/24 at 1028, Until Fri11/23/24 at 1028, Routine, Anesthesia Intraprocedure Given 11/23/2024 10:28 AM EDT 100 mcg lactated Ringer's infusion 75 mL/hr, Intravenous, Continuous, Starting on Fri11/23/24 at 0930, Until Fri11/24/24 at 1521, Routine Continued by Anesthesia 11/23/2024 10:47 AM EDT 75 mL/hr New Bag 11/23/2024 8:57 AM EDT 75 mL/hr 75 mL/hr lidocaine PF (Xylocaine) 2 % injection Intravenous, As needed, Starting on Fri11/23/24 at 1056, Until Fri11/23/24 at 1454, Routine, Anesthesia Intraprocedure Given 11/23/2024 10:56 AM EDT 50 mg ondansetron (Zofran) injection Intravenous, As needed, Starting on Fri11/23/24 at 1107, Until Fri11/23/24 at 1454, Routine, Anesthesia Intraprocedure Given 11/23/2024 11:07 AM EDT 4 mg propofol (Diprivan) infusion 10 mg/mL Intravenous, Continuous PRN, Starting on Fri11/23/24 at 1056, Until Fri11/23/24 at 1454, Routine Rate/Dose Change 11/23/2024 11:07 AM EDT 30 mcg/kg/min 13.5 mL/hr Rate/Dose Change 11/23/2024 11:04 AM EDT 35 mcg/kg/min 15. 75 mL/hr Rate/Dose Change 11/23/2024 11:00 AM EDT 20 mcg/kg/min 9 m L/hr propofol (Diprivan) injection Intravenous, As needed, Starting on Fri11/23/24 at 1056, Until Fri11/23/24 at 1454, Routine, Anesthesia Intraprocedure Given 11/23/2024 10:56 AM EDT 30 mg tranexamic acid (Cyklokapron) IVPB 1,000 mg 1,000 mg, Intravenous, Once, 1 dose, On Fri11/23/24 at 0930, Routine, Anesthesia Intraprocedure Given 11/23/2024 12:06 PM EDT 1,000 mg Given 11/23/2024 10:57 AM EDT 1,000 mg documented in this encounter Additional Health Concerns Active Problems Noted Date Diagnosed Date Autogenerated Problem 11/22/2024 Assessment Noted Time A fall risk assessment has been complete d for the patient 09/20/2024 10:08 AM EST A Body Mass Index follow-up plan has been documented for the patient 11/24/2024 12:23 PM EDT documented as of this encounter Care Teams Brine Process Operator Relationship Specialty Start Date End Date Siva Swann MD [address] [place] [id number] PCP - General Internal Medicine 12/03/21 documented as of this encounter
--- OUTSIDE RECORDS SUMMARY | 2024-11-23 11:15 | XMS_ITS | Encounter Summary ---
Author Organization Healthcare Address [address] [place] [address] Care Team Providers Care Medical Social Worker Name Role Phone Siva Swann MD Primary Care Provider + [phone] Reason for Visit * Auth/Cert (Routine) Specialty Diagnoses / Procedures Referred By Contac t Referred To Contact Diagnoses Primary osteoarthritis of knees, bilateral Primary osteoarthritis of knees, bilateral [M17.0] Procedures [place] TOTAL KNEE ARTHROPLASTY ARTHROPLASTY, KNEE, TOTAL Anthony Abraham MD [address] [place] [phone] Phone: tel: fax: [facility] S Operating Room [address] [place] [address] Phone: tel: Referral ID Status Reason Start Date Expiration Date Visits Re quested Visits Authorized [id number] 1 1 Encounter Details Date Type Department Care Team (Late st Contact Info) Description 11/23/2024 11:15 AM EDT - 11/23/2024 1:30 PM EDT Surgery [facility] S Operating Room [address] [place] [address] Anthony Abraham MD [address] [place] [phone] ARTHROPLASTY, KNEE, TOTAL [66433 (CPT )] Surgery Details Date/Time Status Location OR Service Patient Class Case Class Case Type Trauma Case? 11/23/2024 11:15 AM Posted [facility] OR 5SOR 02 Orthopedic Surgery Extended Recovery E-Electi ve Panel 1 Procedure LRB Anes Op Region Wound Class Comments ARTHROPLASTY, KNEE, TOTAL Right General Knee Clas s I/ Clean Surgeon Surgeon Role Service Panel Anthony Abraham MD Primary Orthopedic Surgery 1 Jose G Campbell MD Resident - Assisting Orthopedic [facility] 1 documented in this encounter Social History Tobacco [...] Sign Reading Time Taken Comments Blood Pressure 129/62 11/23/2024 1:30 PM EDT Pulse 65 11/23/2024 1:30 PM EDT Temperature 36.4 C (97.5 F) 11/23/2024 1:30 PM EDT Respiratory Rate 15 11/23/2024 1:30 PM EDT Oxygen Saturation 95% 11/23/2024 1:30 PM EDT Inhaled Oxygen Concentration - - Weight 75.3 kg (166 lb) 11/23/2024 8:38 AM EDT Height 154.9 cm (5' 1 ) 11/23/2024 8:38 AM EDT Body Mass Index 31.37 11/23/2024 8:38 AM EDT documented in this encounter Discharge Instructions * Discharge Instructions* [...] For 4 weeks post-op 30 tablet 11/24/2024 5 omeprazole (PriLOSEC) [address] capsule Take [...] [place] name [place]: [place] [address] [place] [address] / [place] [address] Referring provider name and address: Siva Swann MD [address] [place] [address] [place] [facility] Chief Concern, Brief History of Present Illness, and Hospital Course Patient arrived to [facility] on 11/23/24 for their scheduled surgery. Patient [...] Your Medications These medications were sent to [facility] [place], [place] - [address] [place] [address] [facility], [place] [id number] acetaminophen 500 MG tablet apixaban 2.5 MG [...] 10:00 AM Isaiah Anne PA ORTHGSMOB GS MOB 01/10/2025 10:10 AM Anthony Abraham MD ORTHGSMOB MOB Pertinent Physical Exam At Time of Discharge [...] discharge. Misael Perez MD Orthopaedic Surgery PGY-1 [facility] Orthopaedic Trauma Service Pager: [phone] Orthopaedic Recon/Spine/Foot and Ankle Service Pager: [phone] Personal Pager: [phone] Cosigned by Anthony Abraham MD at 11/25/2024 12:35 PM EDT * Care Plan - Linda Roberson - 11/24/2024 9:42 AM EDT Problem: Adult Inpatient Plan of Care Goal: Plan of Care Review Outcome: Ongoing, Progressing Flowsheets (Taken 11/23/2024 1339 by VitLatisha martínez RN) Plan of Care Reviewed With: patient [...] follow-up with primary care provider Karel Damon, [facility] Medicine Secure Chat [1] Current Facility-Administered Medications Medication Dose Route Frequency Provider Last Rate Last Admin acetaminophen (Tylenol) tablet 1,000 mg 1,000 mg Oral q8h De Bledsoe MD 1,000 mg at 11/24/24 0548 apixaban (Eliquis) tablet 2.5 mg 2.5 mg Oral BID De Perez MD aztreonam (Azactam) 2 g in sodium chloride 0.9% 100 mL IVPB (vial adapter required) 2 g Bihrktvicycr9s De Perez MD 36.7 mL/hr at 11/24/24 [...] mg 12.5 mg Oral q4h PRN De Preez MD gabapentin (Neurontin) capsule 100 mg 100 mg Oral q8h De Perez MD 100 mg at 11/24/24 0844 HYDROmorphone (Dilaudid) injection 0.5 mg 0.5 mg Intravenous q6h PRN De Perez MD ketorolac (Toradol) injection 15 mg 15 mg Intravenous q6h [facility] De Perez MD 15 mg at lactated Ringer's infusion 75 mL/hr Intravenous Continuous [...] patch 1 patch 1 patch Transdermal Once CincinnatiYannick scott PA 1 patch at 11/23/24 0907 [...] in Care Family/Caregiver Present: Yes Family/Caregiver: Spouse Senior Clinical Research Associate: Not Applicable Presentation Oxygen Therapy: None (Room [...] Transfer Exam: Sit to stand Level of [place]: Stand-by assist Physical/Nonphysical Assist: Supervision, Verbal Cues Assistive Device: Walker, rolling Transfer Exam: Stand to Sit Level of [place]: Stand-by assist Physical/Nonphysical Assist: Supervision, Verbal Cues [...] in the room with the patient and RESIDENTIAL RECYCLE DRIVER student throughoutthe duration of the treatment session. I have reviewed and agree with this document written by the student Physical Therapist Skimmer Scoop Operator for this patient on this date/time. Darline Olsen RESIDENTIAL RECYCLE DRIVER * Progress Notes - Chaitanya Rosenthal - [...] a past medical history of Diabetes mellitus ([facility]/HCC), Family history of DVT, HLD (hyperlipidemia), Hypertension, [...] in Care Family/Caregiver Present: Yes Family/Caregiver: Spouse Senior Clinical Research Associate: Not Applicable Presentation Oxygen Therapy: None (Room [...] admission Level of Mobility: Ambulatory- community Mobility [place]: Independent gait without device History of Falls: [...] Mobility Exam: Supine to Sit Level of [place]: Stand-by assist Physical/Nonphysical Assist: Supervision, Verbal Cues Transfers Transfer Exam: Sit to stand Level of [place]: Stand-by assist Physical/Nonphysical Assist: Supervision, Verbal Cues Assistive Device: Walker, rolling Transfer Exam: Stand to Sit Level of [place]: Stand-by assist Physical/Nonphysical Assist: Supervision, Verbal Cues Assistive Device: Walker, rolling Transfer Exam: Bed to Chair/Chair to Bed Level of [place]: Stand-by assist Physical/Nonphysical Assist: Supervision, Verbal Cues [...] a helper. 5 Set-up or Clean-up Assistance [place] sets up or cleans up; patient completes activity. [place] assists only prior to or following the activity. 4 Supervision or touching assistance [place] provides verbal cues and/or touching/steadying and/or contact guard assistance as patient completes activity. Assistance may be provided throughout the activity or intermittently. 3 Partial/Moderate Assistance [place] does LESS THAN HALF the effort. [place] lifts, holds or supports trunk or limbs, but provides less than half the effort. 2 Substantial/Maximal Assistance [place] does MORE THAN HALF the effort. [place] lifts or holds trunkor limbs and provides more than half the effort. 1 Dependent [place] does ALL of the effort. Patient does [...] recommendations: HWA - Follow up: EW 12/08 [facility] clinic - Disposition: likely discharge today following repeat PTOT evaluation Mobility Orders Mobility Protocol: General - Mobility Guidelines Extremity Precautions: No Extremity Precautions Other mobility precautions: Other precautions Other mobility precautions: Other Other: Out of bed to chair 2 hours post-op Misael Perez MD Orthopaedic Surgery PGY-1 [facility] Orthopaedic Trauma Service Pager: [phone] Orthopaedic Recon/Spine/Foot and Ankle Service Pager: [phone] Personal Pager: [phone] Cosigned by Anthony Abraham MD at 11/25/2024 [...] in Care Family/Caregiver Present: Yes Family/Caregiver: Spouse Senior Clinical Research Associate: Not Applicable Presentation Oxygen Therapy: None (Room [...] admission Level of Mobility: Ambulatory- community Mobility [place]: Independent gait without device History of Falls: [...] Mobility Bed Mobility Exam: Scooting/Bridging Level of Columbia: Stand-by assist Physical/Nonphysical Assist: Verbal Cues, Supervision Assistive Device: Bed rails Bed Mobility Exam: Supine to Sit Level of [place]: Stand-by assist Physical/Nonphysical Assist: Supervision, Verbal Cues Assistive Device: Bed rails Transfers Transfer Interventions: verbal cues for UE positioning and push off from seated surface for safety Transfer Exam: Sit to stand Level of [place]: Contact guard Physical/Nonphysical Assist: Supervision, Verbal Cues Assistive Device: Walker, rolling Transfer Exam: Stand to Sit Level of [place]: Contact guard Physical/Nonphysical Assist: Verbal Cues, Supervision [...] provided. Standardized Assessments Standardized Assessments Standardized Assessments: [facility] 6-Clicks Mobility Assessment [facility] 6-Clicks Mobility Assessment Difficulty patient has turning [...] 3-5 steps with a railing?: A little [facility] 6-Clicks Mobility Assessment Total : 20 Assessment [...] Manzo on 11/23/24 at 4:24 PM. * Giovanna Valverde RN - 11/23/2024 1:39 PM EDT Images [...] numbs the area under the pad. The Polar Care pad gets very cold and can [...] from the original note were not included. [id number] After Knee Replacement: Using a Walker Following [...] after your physical or occupational therapist or registered respiratory therapist has shown you the correct procedures, you [...] leg. Last Reviewed Date: 2024 00:00:00 ?? 6618-0749 The [employer]. All rights reserved. This information is not intended as a substitute for professional medical care. Always follow your healthcare professional's instructions. * [facility] Giovanna Bliss RN - 11/23/2024 1:39 PM EDT Images from the original note were not included. 72578 Using an Incentive Spirometer An incentive spirometer [...] rate Last Reviewed Date: 2024 00:00:00 ?? [employer]. All rights reserved. This information is not intended as a substitute for professional medical care. Always follow your healthcare professional's instructions. * Joseph Cota - Giovanna Bliss RN - 11/23/2024 1:39 PM EDT Images from the original note were not included. 64506 Preventing Deep Vein Thrombosis After Surgery In [...] blood clots. Move your feet in a bad river band or up and down. Do this 10 [...] bleeding Last Reviewed Date: 2022 00:00:00 ?? 9468-9882 [employer]. All rights reserved. This information is not intended as a substitute for professional medical care. Always follow your healthcare professional's instructions. * Joseph Cota - Giovanna Bliss RN - 11/23/2024 1:39 PM EDT Images from the original note were not included. 88663 Preventing a Surgical Site Infection A risk [...] more than 60 minutes before the incision is made. They are generally stopped within 24 hours [...] of infection. ?? Controlled body temperature. A btxrs-pssf-umocdo temperature during or after surgery prevents oxygen [...] and water or with an alcohol-based hand branch library clerk before and after caring for you. Don?t [...] away. Last Reviewed Date: 2024 00:00:00 ?? [id number] [employer]. All rights reserved. This information is not intended as a substitute for professional medical care. Always follow your healthcare professional's instructions. * Joseph DelacruzABRAN - Giovanna Bliss RN - 11/23/2024 1:39 [...] medicines unless your doctor approves. This includes mtep-oox-wgesblc medicines like aspirin, ibuprofen and Tylenol. ?? [...] a nutritional supplement such as Boost or Florence Instant Breakfast until your appetite returns to [...] ?? If you have problems sleeping, take sbpn-ngf-pynduop diphenhydramine (Benadryl) or melatonin. ?? If you [...] prescription refill before your next appointment, call [phone]. Call 2 business days before you run [...] 12:42 PM EDTAssociated Order(s): Inpatient consult to Indira Trinidad Inpatient consult to Indira Trinidad Consult performed by: Pradip Damon APRN Consult ordered by: Anthony Abraham MD Reason for Visit: hypertension JOÃO Maravilla is a 69 y.o. female seen [...] GERD History of renal cancer status post 1/3 of her left kidney removed in 2013, [...] day. Patient not taking: Reported on 09/20/2024 11/09/2125 Provider, Ronnie, ALLERGIES Allergies[2] SOCIAL HISTORY reports that she [...] to follow. Pleasecontact the hospital medicine TONY ([facility] Consult Team TONY 7A-7P, night TONY 7P-7A) with questionsor concerns. Karel Damon, [facility] Medicine Secure Chat [1] Past Surgical History: Procedure Laterality Date BLADDER SURGERY N/A Bladder surgery from [facility] CHOLECYSTECTOMY N/A Cholecystectomy from [facility] COLONOSCOPY FOOT SURGERY Left HERNIA REPAIR HYSTERECTOMY PARTIAL NEPHRECTOMY Left Partial Nephrectomy from [facility] TONSILLECTOMY N/A Tonsillectomy from [facility] TUBAL LIGATION N/A Tubal Ligation from [facility] [2] Allergies Allergen Reactions Cephalexin Hives [3] [...] Implant Name Type Inv. Item Serial No. Bill Distributor Lot No. LRB No. Used Action CEMENT PALACOS - [id number] Cement CEMENT PALACOS [id number] Right 2 Implanted CHG TIBIAL GNS II CMT SIZE 3 R - [id number] Knee CHG TIBIAL GNS II CMT SIZE 3 R [id number] Right 1 Implanted PATELLA POROUS OVAL 29MM - [id number] Patella PATELLA POROUS OVAL 29MM [id number] Right 1 Implanted CHG INSERT LGN PS HG FX XLPE S - [id number] Knee CHG INSERT LGN PS HG FX XLPE S [id number] Right 1 Implanted CHG FEMORAL LEGION PS NRRW OXIN SZ5 RT - [id number] Knee CHG FEMORAL LEGION PS NRRW OXIN SZ5 RT [id number] Right 1 Implanted Specimen: No specimens collected during this procedure. Narrative: There was no qualified resident available for this case. These syrup mixer assistant was Jose G Campbell MD who has operative credentials at the [facility]. His assistance was needed for exposure, [...] distal femoral cut was performed using the [employer] Imageless Navigation. The pin was placed to [...] punch and peg were used. A lamina motor vehicle inspector was used to evaluate the flexion gap [...] and vomiting), and Renal cell carcinoma (2014). Surgical History: has a past surgical history [...] injection 2 g 2 g Intravenous Once [place], Yannick L, PA ??? lactated Ringer's infusion 75 mL/hr Intravenous Continuous Mychal Do MD 75 mL/hr at 11/23/24 0857 75 mL/hr at 11/23/24 0857 ??? lidocaine (Xylocaine) 1 % injection 0.5 mL 0.5 mL Injection Once PRN Mychal Do MD ??? scopolamine (Transderm-Scop) patch 1 patch 1 patch Transdermal Once Yaw, Yannick L, PA 1 patch at 11/23/24 0907 ??? sodium chloride 0.9 % flush 10 mL 10 mL Intravenous q12h Mychal Do MD And ??? sodium chloride 0.9 % flush 10 mL 10 mL Intravenous PRN Mychal Do MD ??? sodium chloride 0.9 % flush 10 mL 10 mL Intravenous q12h [place], Yannick L, PA And ??? sodium chloride 0.9 % flush 10 mL 10 mL Intravenous PRN Luciano Tidwellius L, PA ??? tranexamic acid (Cyklokapron) IVPB 1,000 mg 1,000 mg Intravenous Once [place], Yannick L, PA ??? tranexamic acid (Cyklokapron) IVPB 1,000 mg 1,000 mg Intravenous Once Yaw, Yannick L, PA ??? vancomycin in NS (Vancocin) IVPB 1,250 mg 1,250 mg Intravenous Once Anthony Abraham MD 200 mL/hr at 11/23/24 09 1,250 mg at 11/23/24 0907 Review of [...] Description 02/01/2025 8:45 AM EDT Hospital Encounter [facility] S Operating Room [address] [place] [address] Anthony Abraham MD [address] [place] [address] 02/01/2025 8:45 AM EDT - 02/01/2025 11:05 AM EDT Surgery [facility] Operating Room [address] [place] [address] Anthony Abraham MD [address] [place] [address] ARTHROPLASTY, KNEE, TOTAL [14435 (CPT )] 02/16/2025 10:00 AM EDT Office Visit Medical Office Building [facility] [address], [address] [place] [address] Isaiah Anne PA [address] [place] [address] 03/21/2025 9:40 AM EDT Office Visit Medical Office Building [facility] [address], [address] [place] [address] Anthony Abraham MD [address] [place] [address] Scheduled Procedures Name Priority Associated [...] damien Goal Care Plan Autogenerated Problem No Alexis Marta B documented as of this encounter Procedures Procedure Name Priority Date/Time Associated Diagnosis Comments CBC W/O DIFFERENTIAL Routine 11/24/2024 4:35 AM EDT BASIC METABOLIC PANEL, PLASMA Routine 11/24/2024 4:35 AM EDT XR KNEE RIGHT 1 OR 2 VIEWS Routine 11/23/2024 1:12 PM EDT [place] TOTAL KNEE ARTHROPLASTY 11/23/2024 10:34 AM EDT Primary osteoarthritis of right knee documented in this encounter Results * (ABNORMAL) Basic metabolic panel (11/24/2024 4:35 AM EDT) Glucose, Plasma 113(H) 74 - 99 mg/dL 11/24/2024 5:17 AM EDT [facility] BUN, Plasma 18 8 - 23 mg/dL 11/24/2024 5:17 AM EDT [facility] Creatinine, Plasma 0.77 0.60 - 1.10 mg/dL 11/24/2024 5:17 AM EDT [facility] BUN/Creatinine Ratio 23 11/24/2024 5:17 AM EDT [facility] Sodium, Plasma 139 136 - 145 mmol/L 11/24/2024 5:17 AM EDT [facility] Potassium, Plasma 4.8 3.6 - 4.9 mmol/L 11/24/2024 5:17 AM EDT [facility] Chloride, Plasma 106 97 - 107 mmol/L 11/24/2024 5:17 AM EDT [facility] CO2, Plasma 25 22 - 29 mmol/L 11/24/2024 5:17 AM EDT [facility] Anion Gap 8 6 - 16 mmol/L 11/24/2024 5:17 AM EDT [facility] Total Calcium, Plasma 9.1 8.9 - 10.2 mg/dL 11/24/2024 5:17 AM EDT [facility] eGFRcr 84.1 mL/min/1.7 3m*2 11/24/2024 5:17 AM EDT [facility] Comment:Reported eGFRcr in m L/min/1.73m2 is based the CKD-EPI 2020 equation that does not use a race coefficient. Blood Venous blood specimen / Unknown Venipuncture / Unknown 11/24/2024 4:35 AM EDT 11/24/2024 4:51 AM EDT us Anthony Abraham MD LAB BLOOD ORDERABLES Final Re sult [facility] [address] [place] [address] * (ABNORMAL) CBC (11/24/2024 4:35 AM EDT) WBC Count 12.93(H) 3.70 - 10.30 10*3/uL LAB HEMATOLOGY METHOD 11/24/2024 4:57 AM EDT [facility] RBC Count 3.95 3.90 - 5.20 10*6/uL LAB HEMATOLOGY METHOD 11/24/2024 4:57 AM EDT [facility] HGB 12.0 11.2 - 15.7 g/dL LAB HEMATOLOGY METHOD 11/24/2024 4:57 AM EDT [facility] HCT 37.2 34.0 - 45.0 % LAB HEMATOLOGY METHOD 11/24/2024 4:57 AM EDT [facility] Platelet Count 194 155 - 369 10*3/uL LAB HEMATOLOGY METHOD 11/24/2024 4:57 AM EDT [facility] MCV 94 79 - 98 fL LAB HEMATOLOGY METHOD 11/24/2024 4:57 AM EDT [facility] MCH 30.4 26.0 - 32.0 pg LAB HEMATOLOGY METHOD 11/24/2024 4:57 AM EDT [facility] MCHC 32.3 30.7 - 35.5 g/dL LAB HEMATOLOGY METHOD 11/24/2024 4:57 AM EDT [facility] RDW 13.4 11.5 - 14.5 % LAB HEMATOLOGY METHOD 11/24/2024 4:57 AM EDT [facility] MPV 10.9 8.8 - 12.5 fL LAB HEMATOLOGY METHOD 11/24/2024 4:57 AM EDT [facility] nRBC 0.0 <=0.0 per 100 WBCs LAB HEMATOLOGY METHOD 11/24/2024 4:57 AM EDT [facility] Blood Venous blood specimen / Unknown Venipuncture / Unknown 11/24/2024 4:35 AM EDT 11/24/2024 4:51 AM EDT Anthony Abraham MD LAB BLOOD ORDERABLES Final Re sult [facility] [address] [place] [address] * XR Knee Right 1 or 2 [...] fractures. Procedure Note Anthony Bird MD - 11/23/2024 CLINICAL INDICATION: TKA TECHNIQUE: XR KNEE RIGHT [...] by Anthony Bird on 11/23/2024 1:39 PM Anthony Abraham MD IMG XR PROCEDURES Final [...] magnesium hydroxide bupivacaine-EPINEPHrine PF (Marcaine w/EPI) 0.5% -1:[id number] injection As needed, Starting on Fri11/23/24 at 1114, Until Fri11/23/24 at 1243, Routine, Intraprocedure Given 11/23/2024 12:00 PM EDT 60 mL Right Knee calcium-vitamin D 500-200 MG-UNIT per tablet 1 [...] on Fri11/23/24 at 1400, Last dose on Cristin 11/25/24 at 0600, Routine, Recovery(Phase II-Outpatient)/On Unit(Inpatient) Given [...] II-Outpatient)/On Unit(Inpatient) 1836 (Given - Provider: Elan Beltre, [place]) 0548 (Given - Provider: Pat Yarbrough)1400 (Canceled [...] 2 g, Intravenous, Once, 1 dose, On e 11/23/24 at 0930, Routine, Anesthesia Intraprocedure 1057 (Given - Provider: Charlotte Jennings CRNA) dexamethasone (Decadron) injection 8 mg (COMPLETED) 8 mg, Intravenous, Once, 1 dose, On e 11/23/24 at 0930, Routine, Holding - Preprocedure 0907 (Given - Provider: Alicia Mercado RN) gabapentin (Neurontin) capsule 100 mg 100 mg, Oral, Every 8 hours, First dose on e 11/23/24 at 1600, Until Discontinued, Routine, Recovery(Phase II-Outpatient)/On Unit(Inpatient) 1648 (Given - Provider: Elan Beltre RN)2348 (Given - Provider: [place] Yarbrough) 0844 (Given - Provider: Linda Roberson) [...] II-Outpatient)/On Unit(Inpatient) 1452 (Given - Provider: Elan Beltre, [place]COL[place])1836 (Given - Provider: Elan Beltre RN)2348 (Given - Provider: Pat Yarbrough) 0549 (Given - Provider: [place] Yarbrough)1316 (Not Given - Provider: Linda Roberson [...] 0907 (Given - Provider: Alicia Mercado RN) pantoprazole (Protonix) EC tablet 40 mg 40 mg, Oral, Daily before breakfast, First dose on Fri11/23/24 at 1400, Until Discontinued, Routine, Recovery(Phase II-Outpatient)/On Unit(Inpatient) 1452 (Given - Provider: Elan Beltre, [place]) 0844 (Given - Provider: Linda Roberson) polyethylene glycol (Miralax) packet 17 g 17 g, Oral, Daily with breakfast, First dose on Fri11/24/24 at 0800, Until Discontinued, Routine, Recovery(Phase II-Outpatient)/On Unit(Inpatient) 0844 (Given - Provid er: Linda Roberson) Povidone-Iodine 5 % swab solution 1 Application (COMPLETED) Nasal, Once, 1 dose, On Fri11/23/24 at 0930, Routine 0856 (Given - Provider: Alicia Mercado RN) rosuvastatin (Crestor) tablet 20 mg 20 mg, Oral, Nightly, First dose on Fri11/24/24 at 2100, Until Discontinued, Routine scopolamine (Transderm-Scop) patch 1 patch 1 patch, Transdermal, Once, 1 dose, On Fri11/23/24 at 0930, Routine, Holding - Preprocedure 0907 (Medication Applied - Provider: Alicia Mercado RN) 1321 (Due: Medication Removed - Provider: Automatic Discharge Provider - Comment: Time automatically adjusted from order being discontinued) senna-docusate (Dena-Colace) 8.6-50 MG per tablet 2 tablet 2 tablet, Oral, Nightly, First dose on Fri11/23/24 at 2100, Until Discontinued, Routine, Recovery(Phase II-Outpatient)/On Unit(Inpatient) 2111 (Given - Provider: [place] Yarbrough) traMADol (Ultram) tablet 100 mg 100 mg, Oral, Every 8 hours scheduled, First dose on Fri11/23/24 at 1400, Until Discontinued, Routine, Recovery(Phase II-Outpatient)/On Unit(Inpatient) 1451 (Given - Provider: Elan Beltre, MALCOLM)211 (Given - Provider: [place] Yarbrough) 0548 (Given - Provider: [place] Yarbrough)1400 (Canceled Entry - Provider: Automatic Discharge [...] Routine 1455 (New Bag - Provider: Itz Beltre RN) PRN Medication Order 11/22/2024 11/23/2024 11/24/2024 bethanechol [...] magnesium hydroxide bupivacaine-EPINEPHrine PF (Marcaine w/EPI) 0.5% -1:[id number] injection (CANCELED) As needed, Starting on Fri11/23/24 [...] moderate pain, severe pain, Severe pain 5-8 3547 (Not Given - Provider: Elan Beltre RN [...] of 10 1250 (Given - Provider: Latisha Gu, MALCOL[place] - Comment: patient wants to stay ahead [...] documented as of this encounter Care Teams Medical Social Worker Relationship Specialty Start Date End Date Siva Swann MD [address] [place] [address] PCP - General Internal Medicine 12/03/21 documented as of this encounter
--- OUTSIDE RECORDS SUMMARY | 2024-12-08 10:00 | XMS_ITS | Encounter Summary ---
Author Organization Healthcare Address [address] [place] [address] Care Team Providers Care Showplace Manager Name Role Phone Siva Swann MD Primary Care Provider [phone] Reason for Visit * Reason Comments Post-op Encounter Details Date Type Department Care Team ([facility] st Contact Info) Description 12/08/2024 10:00 AM EDT Office Visit Medical Office Building Surgery [facility] [address], [address] [place] [address] Isaiah Anne PA [address] [place] [address] S/P total knee arthroplasty, right (Primary Dx) Social History Tobacco Use Types Packs/Day Years Used Date Smoking Tobacco: Never Smokeless Tobacco: Never Tobacco Cessation:Counseling Given: Not Answered Alcohol Use Standard Drinks/Week Comments No 0 [...] Sign Reading Time Taken Comments Blood Pressure 120/76 12/08/2024 10:09 AM EDT Pulse 88 12/08/2024 10:09 AM EDT Temperature - - Respiratory Rate 18 12/08/2024 10:09 AM EDT Oxygen Saturation 98% 12/08/2024 10:09 AM EDT Inhaled Oxygen Concentration - - Weight 75.9 kg (167 lb 5.3 oz) 12/08/2024 10:09 AM EDT Height 154.9 cm (5' 1 ) 12/08/2024 10:09 AM EDT Body Mass Index 31.62 12/08/2024 10:09 AM EDT documented in this encounter Miscellaneous Notes * Progress Notes - Isaiah Anne PA - 12/08/2024 10:00 AM EDT Italia Maravilla presents in follow-up 2 weeks postop on a total knee arthroplasty. The patient is progressing fairly well. Patient's pain iswell controlled. They deny any sweats chills or fevers. Objective: Patient is neurovascular intact in the right lower extremity. Wound is healing well withno signs of infection. Range of motion is 0 degrees extension and 95 degrees flexion. There are no signs of DVT. Assessment: Status post right total knee arthroplasty. Plan: The patient will continue with weight-bearing, activity and physical therapy as tolerated andprogress to home exercise program. The Prineo will be allowed to slough off and the patient can shower over the wound, dry completely and light dressing if needed. We will follow up as scheduled for continued evaluation and x-rays. They will continue with their DVT prophylaxis as determined upon discharge. We recommend continuation of tapering off pain medications. documented in this encounter Plan of Treatment Upcoming Encounters Date Type Department Care Team (Latest Contact Info) Description 02/01/2025 8:45 AM EDT Hospital Encounter [facility] S Operating Room [address] [place] [address] Anthony Abraham MD [address] [address] 02/01/2025 8:45 AM EDT - 02/01/2025 11:05 AM EDT Surgery [facility] S Operating Room [address] [place] [phone] Anthony Abraham MD [address] [place] [address] ARTHROPLASTY, KNEE, TOTAL [[id number] (CPT )] 02/16/2025 10:00 AM EDT Office Visit Medical Office Building Surgery [facility] [address], [address] [place] [address] Isaiah Anne PA [address] [place] [id number] 03/21/2025 9:40 AM EDT Office Visit Medical Office Building [facility] [address], [address] [place] [address] Anthony Abraham MD [address] [place] [address] Scheduled Procedures Name Priority Associated Diagnoses Date/Ti me ARTHROPLASTY, KNEE, TOTAL Primary osteoarthritis of one knee, left 02/01/2025 8:45 AM EDT documented as of this encounter Goals Goal Patient Goal Type Associated Problems Recent Progress Patient-Stated? Author Autogenera damien Goal Care Plan Autogenerated Problem No Marta Espinoza documented as of this encounter Results * 6-Week Post-Op: XR Knee (AP Standing / Lateral Standing) (01/10/2025 9:41 AM EDT) Anatomical Region Laterality Modality Lower Extremities, Knee Right Digital Radiography Impressions 01/10/2025 11:14 AM EDT No evidence of hardware malfunction or acute osseous finding. CRITICAL RESULT: No. COMMUNICATION: Per this written report. By electronically signing this report, I, the attending physician, attest that I have personally reviewed the images/data for the above examination(s) and agree with the final edited report. Drafted by Ruben Tang MD on 01/10/2025 10:31 AM Final report signed by Vanessa Justice MD on 01/10/2025 11:14 AM Narrative 01/10/2025 11:14 AM EDT CLINICAL INDICATION: post-op TECHNIQUE: XR KNEE RIGHT 1 OR 2 VIEWS COMPARISON: 11/23/2024 radiograph, 09/20/2024 radiograph FINDINGS: Redemonstrated right knee total arthroplasty with unchanged alignment. No evidence of hardware malfunction. Postoperative appearance of the knee with small suprapatellar effusion. No new fracture, dislocation or subluxation. Procedure Note Vanessa Justice MD - 01/10/2025 CLINICAL INDICATION: post-op TECHNIQUE: XR KNEE RIGHT 1 OR 2 VIEWS COMPARISON: 11/23/2024 radiograph, 09/20/2024 radiograph FINDINGS: Redemonstrated right knee total arthroplasty with unchanged alignment. Noevidence of hardware malfunction. Postoperative appearance of the kneewith small suprapatellar effusion. No new fracture, dislocation orsubluxation. IMPRESSION: No evidence of hardware malfunction or acute osseous finding. CRITICAL RESULT: No. COMMUNICATION: Per this written report. By electronically signing this report, I, the attending physician, shirley I have personally reviewed the images/data for the aboveexamination(s) and agree with the final edited report. Drafted by Ruben Tang MD on 01/10/2025 10:31 AM Final report signed by Vanessa Justice MD on 01/10/2025 11:14 AM us Isaiah SUAREZ IMG XR PROCEDURES Final Resul t documented in this encounter Visit Diagnoses Diagnosis S/P total knee arthroplasty, right- Primary S/P total knee arthroplasty, right Primary osteoarthritis of one knee, left documented in this encounter Additional Health Concerns Active Problems Noted Date Diagnosed Date Autogenerated Problem 11/22/2024 Assessment Noted Time A fall risk assessment has been complete d for the patient 12/08/2024 10:09 AM EDT A Body Mass Index follow-up plan has been documented for the patient 12/08/2024 10:30 AM EDT documented as of this encounter Care Teams Showplace Manager Relationship Specialty Start Date End Date Siva Swann MD [address] [place] [id number] PCP - General Internal Medicine 12/03/21 documented as of this encounter
--- OUTSIDE RECORDS SUMMARY | 2025-01-10 09:33 | XMS_ITS | Encounter Summary ---
Author Organization Healthcare Address [address] [place] [address] Care Team Providers Care Survey Analyst Name Role Phone Siva Swann MD Primary Care Provider [phone] Encounter Details Date Type Department Care Team (Latest Contact Info) Description 01/10/2025 9:33 AM EDT - 01/10/2025 11:59 PM EDT Hospital Encounter Medical Office Building Radiology [address] [place] [address] S/P total knee arthroplasty, right Discharge Disposition: Home or Self Care Social [...] on file documented as of this encounter Medications at Time of Discharge [...] blood clot prevention 56 tablet 11/24/2024 Calcium Carbonate-Vitami n D 250-3.125 MG-MCG tablet Take by mouth. [...] each nostril as needed for allergies. 05/28/2024 gabapentin (Neurontin) 300 MG capsule Take 1 capsule by mouth three times daily as needed 30 capsule 12/16/2024 irbesartan-hydro CHLOROthiazide (Avalide) 300-12.5 MG tablet Take 0.5 tablets [...] Take 400 Int'l Units/day by mouth daily. documented as of this encounter Plan of Treatment Upcoming Encounters Date Type Department Care Team (Latest Contact Info) Description 02/01/2025 8:45 AM EDT Hospital Encounter [facility] Operating Room [address] [place] [address] Anthony Abraham MD [address] [facility] [address] [place] [address] 02/01/2025 8:45 AM EDT - 02/01/2025 11:05 AM EDT Surgery [facility] Operating Room [address] [place] [address] Anthony Abraham MD [address] [place] [address] ARTHROPLASTY, KNEE, TOTAL [[id number] (CPT )] 02/16/2025 10:00 AM EDT Office Visit Medical Office Building Surgery [facility] [address], [address] [place] [address] Isaiah Anne PA [address] [place] [address] 03/21/2025 9:40 AM EDT Office Visit Medical Office Building Surgery [facility] [address], [address] [place] [address] Anthony Abraham MD [address] [place] [address] Scheduled Procedures Name Priority Associated Diagnoses Date/Ti me ARTHROPLASTY, KNEE, TOTAL Primary osteoarthritis of one knee, left 02/01/2025 8:45 AM EDT documented as of this encounter Goals Goal Patient Goal Type Associated Problems Recent Progress Patient-Stated? Author Nichelle quezada Goal Care Plan Autogenerated Problem No Marta Espinoza Autogenera quezada Goal Care Plan Autogenerated Problem No Sophy Loya documented as of this encounter Procedures Procedure Name Priority Date/Time Associated Diagnosis Comments XR KNEE RIGHT 1 OR 2 VIEWS Routine 01/10/2025 9:41 AM EDT S/P total knee arthroplasty, right documented in this encounter Results * 6-Week Post-Op: XR [...] signing this report, I, the attending physician, attestthat I have personally reviewed the images/data for the aboveexamination(s) and agree with the final edited report. Drafted by Ruben Tang MD on 01/10/2025 10:31 AM Final report signed by Vanessa Justice MD on 01/10/2025 11:14 AM us Isaiah SUAREZ IMG XR PROCEDURES Final Resul t documented in this encounter Visit Diagnoses Diagnosis S/P total knee arthroplasty, right Primary osteoarthritis of one knee, left- Primary Primary osteoarthritis of one knee, left documented in this encounter Additional Health Concerns Active Problems Noted Date Diagnosed Date Autogenerated Problem 11/22/2024 Autogenerated Problem 01/10/2025 Assessment Noted Time A fall risk assessment has been complete d for the patient 01/10/2025 9:51 AM EDT A Body Mass Index follow-up plan has been documented for the patient 01/11/2025 6:40 AM EDT documented as of this encounter Care Teams Survey Analyst Relationship Specialty Start Date End Date Siva Swann MD [address] [place] [id number] PCP - General Internal Medicine 12/03/21 documented as of this encounter
--- OUTSIDE RECORDS SUMMARY | 2025-01-10 10:10 | XMS_ITS | Encounter Summary ---
Author Organization [facility] Address [address] [place] [address] Care Team Providers Care Fern Cutter Name Role Phone Siva Swann MD Primary Care Provider [phone] Reason for Referral * Consultation (Routine) - Authorized Specialty Diagnoses / Procedures Referred By Contac t Referred To Contact Anesthesiology Diagnoses Primary osteoarthritis of one knee, left Anthony Abraham MD [address] [address] Phone: tel: fax: [facility] [address] [place] [address] Phone: tel: Referral ID Status Reason Start Date Expiration Date Visits Requested Visits Authorized [id number] Authorized Specialty Services Required 01/10/2025 07/12/2026 1 1 Reason for Visit * Reason Comments Post-op Encounter Details Date Type Department Care Team (Latest Contact Info) Description 01/10/2025 10:10 AM EDT Office Visit Medical Office Building Surgery Sp[facility] [address] [place] [address] Anthony Abraham MD [address] [facility] [address] [place] [address] S/P total knee arthroplasty, right (Primary Dx); Primary osteoarthritis of one knee, left; Acute pain of left knee; Type 2 diabetes mellitus without complication, unspecified whether keno terminal operator insulin use Social History Tobacco Use Types Packs/Day Years [...] Sign Reading Time Taken Comments Blood Pressure 134/80 01/10/2025 9:51 AM EDT Pulse 89 01/10/2025 9:51 AM EDT Temperature - - Respiratory Rate - - Oxygen Saturation 99% 01/10/2025 9:51 AM EDT Inhaled Oxygen Concentration - - Weight 76 kg (167 lb 8.8 oz) 01/10/2025 9:51 AM EDT Height 154.9 cm (5' 1 ) 01/10/2025 9:51 AM EDT Body Mass Index 31.66 01/10/2025 9:51 AM EDT documented in this encounter Miscellaneous Notes * Progress Notes - Torsten Caal MD - 01/10/2025 10:10 AM EDT Arthroplasty, Knee, Total - Right 11/23/2024 Subjective: Italia Maravilla is a 69 y.o. y/o female who comes in for approximate 6 week follow-up. New complaints are minimal No history of fevers chills or constitutional symptoms. Minimal to no pain in calf, and swelling decreases with recumbence HPI Review of Systems Objective: Wound is clean without sign of infection ROM is 0 degrees extension to 120 degrees flexion Stable to varus and valgus with appropriate motions at midflexion Calf is non-tender Homans sign is negative Independent interpretation of x-rays: good alignment without signs of loosening or complication Assessment: Overall pt is doing well The other knee has arthritis and patient desires surgery Plan: Dx: S/P total knee arthroplasty, right Primary osteoarthritis of one knee, left Orders: No orders of the defined types were placed in this encounter. From the right knee perspective patient is doing well and progressing as expected. She would like to move forward with left total knee arthroplasty. We will place epic orders today. She will meet with surgery scheduling. Justification for Joint Arthroplasty Pain has been present for years. Pain has worsened over last few months. Onset of pain was gradual. Quality of pain is aching and dull. Severity of pain is severe. Limitation of ADLs Patient has moderate or severe difficulty getting dressing, using stairs, and walking a city block. Medications Patient has tried acetaminophen, ibuprofen, oxycodone, and tramadol for a total of three months with waning efficacy. Intra-Articular Injections Patient has had an intra-articular corticosteroid injection with some relief. Physical Therapy and/or Home Exercise Plan Patient has tried physical therapy for at least three months with no demonstrated lasting results. Assistive Devices Patient uses a cane to help with mobility. Safety Issues none Pre-Operative Imaging X-rays demonstrate [id number] contact, joint space narrowing, and subchondral sclerosis. Cosigned by Anthony Abraham MD at 01/11/2025 6:40 AM EDT Associated attestation - Anthony Abraham MD - 01/11/2025 6:40 AM EDT I saw and evaluated the patient with the resident/fellow. I discussed the case with the resident/fellow and agree with the findings and plan as documented. * Progress Notes - Karla Frausto RN - 01/10/2025 10:10 AM EDT Patient was provided with Total Joint Education Packet. Patient was educated using information provided in packet. Patient instructed to schedule PT appointment 3-5 days after surgery date and to schedule prior to having procedure. All questions answered. Contact information for Joint Replacement Nu rse given for patient to call should any questions arise before or after surgery. Pt then met with application analyst to arrange surgery and Joint Replacement Class date. Reviewed patients allergies, medications, medical and surgical history, and pharmacy verified. Instructed patient to stop NSAIDS, ASA, and OTC vitamins & supplements 1 week prior to procedure. Instructed to ensure any hormone replacement, if taken, is stopped 1 month prior to surgery. Also any dermatological procedures or dental work need to be performed 1 month prior to procedure. Patient instructed to review educational material and write down any questions or concerns in the notes section and bring the packet to the hospital and all appointments. Patient stated understanding. Last injection years ago. Taking Estradiol, will hold for 1 month prior to surgery. Family history of DVT - mother. Prefers to stay over night. documented in this encounter Plan of Treatment Upcoming Encounters Date Type Department Care Team (Latest Contact Info) Description 02/01/2025 8:45 AM EDT Hospital Encounter [facility] S Operating Room [address] [place] [address] Anthony Abraham MD [address] [place] [address] 02/01/2025 8:45 AM EDT - 02/01/2025 11:05 AM EDT Surgery [facility] S Operating Room [address] [place] [address] Anthony Abraham MD [address] [place] [address] ARTHROPLASTY, KNEE, TOTAL [[id number] (CPT )] 02/16/2025 10:00 AM EDT Office Visit Medical Office Building Surgery [facility] [address], [address] [place] [address] Isaiah Anne PA [address] [place] [address] 03/21/2025 9:40 AM EDT Office Visit Medical Office Building Surgery [facility] [address], [address] [place] [address] Anthony Abraham MD [address] [place] [address] Scheduled Orders Name Type Priority Associated Diagnoses Orde r Schedule CBC W/O Differential Lab Routine Primary osteoarthritis of one knee, left Acute pain of left knee 1 Occurrences starting 01/10/2025 until 01/10/2026 Basic metabolic panel Lab Routine Primary osteoarthritis of one knee, left 1 Occurrences starting 01/10/2025 until 01/10/2026 Albumin, Plasma Lab Routine Primary osteoarthritis of one knee, left 1 Occurrences starting 01/10/2025 until 01/10/2026 Hemoglobin A1c Lab Routine Type 2 diabetes mellitus without complication, unspecified whether senior living insulin use Expected: 01/10/2025 (Approximate), Expires: 07/12/2026 Scheduled Procedures Name Priority Associated Diagnoses Date/Ti me ARTHROPLASTY, KNEE, TOTAL Primary osteoarthritis of one knee, left 02/01/2025 8:45 AM EDT Scheduled Referrals Name Type Priority Associated Diagnoses Orde r Schedule Ambulatory referral to Anesthesiology Outpatient Referral Routine Primary osteoarthritis of one knee, left 1 Occurrences starting 01/10/2025 until 07/14/2026 documented as of this encounter Goals Goal Patient Goal Type Associated Problems Recent Progress Patient-Stated? Author Autogene damien Goal Care Plan Autogenerated Problem No Marta Espinoza Autogenera damien Goal Care Plan Autogenerated Problem No Sophy Loya documented as of this encounter Visit Diagnoses Diagnosis S/P total knee arthroplasty, right- Primary Primary osteoarthritis of one knee, left Acute pain of left knee Type 2 diabetes mellitus without complication, unspecified whether senior living insulin use Primary osteoarthritis of one knee, left- Primary [...] documented as of this encounter Care Teams Fern Cutter Relationship Specialty Start Date End Date Siva Swann MD [address] [place] [id number] PCP - General Internal Medicine 12/03/21 documented as of this encounter
--- OUTSIDE RECORDS SUMMARY | 2025-01-20 08:20 | XMS_ITS | Encounter Summary ---
Author Organization [facility] Address [address] [place] [address] Care Team Providers Care Thermal Cutter Hand Name Role Phone Siva Swann MD Primary Care Provider [phone] Encounter Details Date Type Department Care Team ([facility] st Contact Info) Description 12/02/2024 Telephone Medical Office Building Surgery Spine & Joint [address] [facility], [address] [place] [address] Anthony Abraham MD [address] [place] [address] Social History Tobacco Use Types Packs/Day Years [...] on file documented as of this encounter Miscellaneous Notes * Telephone Encounter - Karla Frausto RN - 12/02/2024 10:33 AM EDT Called patient and relayed message. States understanding and denies further issue. * Telephone Encounter - Karla Frausto RN - 12/02/2024 10:01 AM EDT Images from the original note were not included. documented in this encounter Plan of Treatment Upcoming Encounters Date Type Department Care Team (Latest Contact Info) Description 02/01/2025 8:45 AM EDT Hospital Encounter [facility] Operating Room [address] [place] [address] Anthony Abraham MD [address] [place] [address] 02/01/2025 8:45 AM EDT - 02/01/2025 11:05 AM EDT Surgery [facility] Operating Room [address] [place] [address] Anthony Abraham MD [address] [place] [address] ARTHROPLASTY, KNEE, TOTAL [[id number] (CPT )] 02/16/2025 10:00 AM EDT Office Visit Medical Office Building Surgery [facility] [address], [address] [place] [address] Isaiah Anne PA [address] [place] [address] 03/21/2025 9:40 AM EDT Office Visit Medical Office Building Surgery [facility] [address], [address] [place] [address] Anthony Abraham MD [address] [place] [address] Scheduled Procedures Name Priority Associated Diagnoses Date/Ti me ARTHROPLASTY, KNEE, TOTAL Primary osteoarthritis of one knee, left 02/01/2025 8:45 AM EDT documented as of this encounter Goals Goal Patient Goal Type Associated Problems Recent Progress Patient-Stated? Author Autogenera damien Goal Care Plan Autogenerated Problem No Marta Espinoza documented as of this encounter Visit Diagnoses Not on filedocumented in this encounter Additional Health Concerns Active Problems Noted Date Diagnosed Date Autogenerated Problem 11/22/2024 Assessment Noted Time A fall risk assessment has been complete d for the patient 09/20/2024 10:08 AM EST A Body Mass Index follow-up plan has been documented for the patient 11/24/2024 12:23 PM EDT documented as of this encounter Care Teams Thermal Cutter Hand Relationship Specialty Start Date End Date Siva Swann MD [address] [place] [id number] PCP - General Internal Medicine 12/03/21 documented as of this encounter
--- OUTSIDE RECORDS SUMMARY | 2025-01-20 08:20 | XMS_ITS | Encounter Summary ---
Author Organization Healthcare Address [address] [place] [address] Care Team Providers Care Medical Assistant Supervisor Name Role Phone Siva Swann MD Primary Care Provider [phone] Encounter Details Date Type Department Care Team (Late st Contact Info) Description 12/01/2024 Telephone Medical Office Building Surgery Spine & Joint [address] [facility], [address] [place] [address] Anthony Abraham MD [address] [facility] [address] [place] [address] Social History Tobacco Use Types [...] on file documented as of this encounter Plan of Treatment Upcoming Encounters Date Type Department Care Team (Latest Contact Info) Description 02/01/2025 8:45 AM EDT Hospital Encounter [facility] Operating Room [address] [place] [address] [facility] [address] [facility] [address] [place] [address] 02/01/2025 8:45 AM EDT - 02/01/2025 11:05 AM EDT Surgery [facility] Operating Room [address] [place] [address] Anthony Abraham MD [address] [place] [address] ARTHROPLASTY, KNEE, TOTAL [[id number] (CPT )] 02/16/2025 10:00 AM EDT Office Visit Medical Office Building [facility] [address], [address] [place] [address] Isaiah Anne PA [address] [place] [address] 03/21/2025 9:40 AM EDT Office Visit Medical Office Building Surgery [facility] [address], [address] [place] [address] Anthony Abraham MD [address] [place] [address] Scheduled Procedures Name Priority Associated [...] as of this encounter Care Teams Medical Assistant Supervisor Relationship Specialty Start Date End Date Siva Swann MD [address] [place] [address] PCP - General Internal Medicine 12/03/21 documented as of this encounter
--- OUTSIDE RECORDS SUMMARY | 2025-01-20 08:20 | XMS_ITS | Encounter Summary ---
Author Organization Healthcare Address [address] [place] [address] Care Team Providers Care Cassandra Architect Name Role Phone Siva Swann MD Primary Care Provider [phone] Encounter Details Date Type Department Care Team (Late st Contact Info) Description 12/02/2024 Orders Only Medical Office Building [facility] [address] [facility], [address] [place] [address] Isaiah Anne PA [address] [place] [address] Social History Tobacco Use Types [...] Hospital Encounter [facility] [address] [place] [address] Anthony Abraham MD [address] [facility] [address] [place] [address] 02/01/2025 8:45 AM EDT - 02/01/2025 11:05 AM EDT Surgery [facility] Operating Room [address] [place] [address] Anthony Abraham MD [address] [place] [address] ARTHROPLASTY, KNEE, TOTAL [[id number] (CPT )] 02/16/2025 10:00 AM EDT Office Visit Medical Office Building [facility] [address], [address] [place] [address] Isaiah Anne PA [address] [place] [address] 03/21/2025 9:40 AM EDT Office Visit Medical Office Building [facility] [address], [address] [place] [address] Anthony Abraham MD [address] [place] [address] Scheduled Procedures Name Priority Associated [...] documented as of this encounter Care Teams Cassandra Architect Relationship Specialty Start Date End Date Siva Swann MD [address] [place] [id number] PCP - General Internal Medicine 12/03/21 documented as of this encounter
--- OUTSIDE RECORDS SUMMARY | 2025-01-20 08:20 | XMS_ITS | Encounter Summary ---
Author Organization Healthcare Address [address] [place] [address] Care Team Providers Care Heavy Equipment Service Technician Name Role Phone Siva Swann MD Primary Care Provider [phone] Encounter Details Date Type Department Care Team (Latest Contact Info) Description 12/08/2024 Travel Social History Tobacco Use Types Packs/Day Years [...] Hospital Encounter [facility] [address] [place] [address] Anthony Abraham MD [address] [address] 02/01/2025 8:45 AM EDT - 02/01/2025 11:05 AM EDT Surgery [facility] Operating Room [address] [place] [address] Anthony Abraham MD [address] [place] [address] ARTHROPLASTY, KNEE, TOTAL [[id number] (CPT )] 02/16/2025 10:00 AM EDT Office Visit Medical Office Building [facility] [address], [address] [place] [address] Isaiah Anne PA [address] [place] [address] 03/21/2025 9:40 AM EDT Office Visit Medical Office Building Surgery [facility] [address], [address] [place] [address] Anthony Abraham MD [address] [place] [address] Scheduled Procedures Name Priority Associated [...] documented as of this encounter Care Teams Heavy Equipment Service Technician Relationship Specialty Start Date End Date Siva Swann MD [address] [place] [id number] PCP - General Internal Medicine 12/03/21 documented as of this encounter
--- OUTSIDE RECORDS SUMMARY | 2025-01-20 08:20 | XMS_ITS | Encounter Summary ---
Author Organization [facility] Address [address] [place] [address] Care Team Providers Care Direct Mail Marketer Name Role Phone Siva Swann MD Primary Care Provider [phone] Reason for Referral * Consultation (Routine) - Closed Specialty Diagnoses / Procedures Referred By Contac t Referred To Contact Orthopaedic Surgery Diagnoses Chronic pain of both knees Siva Swann MD [address] [facility] [address] [place] [address] Phone: tel: fax: Anthony Abraham MD [address] [facility] [address] [place] [address] Phone: tel: fax: Referral ID Status Reason Start Date Expiration Date V isits Requested Visits Authorized [id number] Closed Specialty Services Required 08/11/2024 02/10/2026 1 1 Encounter Details Date Type Department Care Team (Late st Contact Info) Description 08/11/2024 Community [facility] [address] [place] [address] Siva Swann MD [address] [facility] [address] [place] [id number] Chronic pain of both knees (Primary Dx) Social History Tobacco Use Types [...] Description 02/01/2025 8:45 AM EDT Hospital Encounter [facility] S Operating Room [address] [place] [address] Anthony Abraham MD [address] [place] [address] 02/01/2025 8:45 AM EDT - 02/01/2025 11:05 AM EDT Surgery [facility] S Operating Room [address] [place] [address] Anthony Abraham MD [address] [place] [address] ARTHROPLASTY, KNEE, TOTAL [[id number] (CPT )] 02/16/2025 10:00 AM EDT Office Visit Medical Office Building Surgery [facility] [address], [address] [place] [address] Isaiah Anne PA [address] [place] [address] 03/21/2025 9:40 AM EDT Office Visit Medical Office Building Surgery [facility] [address], [address] [place] [address] Anthony Abraham MD [address] [place] [address] Scheduled Procedures Name Priority Associated Diagnoses Date/Ti me ARTHROPLASTY, KNEE, TOTAL Primary osteoarthritis of one knee, left 02/01/2025 8:45 AM EDT Scheduled Referrals Name Type Priority Associated Diagnoses Order Schedule Ambulatory referral to General Orthopaedics Outpatient Referral Routine Chronic pain of both knees Ordered: 08/11/2024 documented as of this encounter Visit Diagnoses Diagnosis Chronic pain of both knees- Primary Primary osteoarthritis of one knee, left documented in this encounter Additional Health Concerns Assessment Noted Time A fall risk assessment has been complete d for the patient 02/24/2024 1:33 PM EDT A Body Mass Index follow-up plan has been documented for the patient 02/24/2024 2:44 PM EDT documented as of this encounter Care Teams Direct Mail Marketer Relationship Specialty Start Date End Date Siva Swann MD [address] [place] [id number] PCP - General Internal Medicine 12/03/21 documented as of this encounter
--- OUTSIDE RECORDS SUMMARY | 2025-01-20 08:20 | XMS_ITS | Encounter Summary ---
Author Organization Healthcare Address [address] [place] [address] Care Team Providers Care Distance Education Faculty Liaison Name Role Phone Siva Swann MD Primary Care Provider [phone] Encounter Details Date Type Department Care Team (Late st Contact Info) Description 11/26/2024 Telephone Medical Office Building Surgery Spine [facility] [address] [facility], [address] [place] [address] Anthony Abraham MD [address] [facility] [address] [place] [address] Social History Tobacco Use Types [...] Hospital Encounter [facility] Operating Room [address] [place] [address] Anthony Abraham MD [address] [facility] [address] [place] [address] 02/01/2025 8:45 AM EDT - 02/01/2025 11:05 AM EDT Surgery [facility] Operating Room [address] [place] [address] Anthony Abraham MD [address] [place] [address] ARTHROPLASTY, KNEE, TOTAL [[id number] (CPT )] 02/16/2025 10:00 AM EDT Office Visit Medical Office Building [facility] [address], [address] [place] [address] Isaiah Anne PA [address] [place] [address] 03/21/2025 9:40 AM EDT Office Visit Medical Office Building [facility] [address], [address] [place] [address] Anthony Abraham MD [address] [place] [address] Scheduled Procedures Name Priority Associated [...] documented as of this encounter Care Teams Distance Education Faculty Liaison Relationship Specialty Start Date End Date Siva Swann MD [address] [place] [address] PCP - General Internal Medicine 12/03/21 documented as of this encounter
--- OUTSIDE RECORDS SUMMARY | 2025-01-20 08:20 | XMS_ITS | Encounter Summary ---
Author Organization [facility] Address [address] [place] [address] Care Team Providers Care Patient Relations Coordinator Name Role Phone Siva Swann MD Primary Care Provider [phone] Encounter Details Date Type Department Care Team (Latest Contact Info) Description 11/23/2024 Travel Social History Tobacco Use Types Packs/Day [...] of Assessment Author No Risk Indicated 11/23/2024 8:00 PM EDT Yarbrough, O ctavia * Question Answer Date of Assessment Author 1. Wish to be (Past 1 Month) No 025 8:00 PM EDT Yarbrough, Pat 2. Non-Specific Active Suici shanika Thoughts (Past 1 Month) No 11/23/2024 8:00 PM EDT Yarbrough, Pat 6. Suicidal Behavior (Lifetime) No 8:00 PM EDT Yarbrough, [place] documented as of this encounter Plan of Treatment Upcoming Encounters Date Type Department Care Team (Latest Contact Info) Description 02/01/2025 8:45 AM EDT Hospital Encounter [facility] Operating Room [address] [place] [address] Anthony Abraham MD [address] [place] [address] 02/01/2025 8:45 AM EDT - 02/01/2025 11:05 AM EDT Surgery [facility] Operating Room [address] [place] [address] Anthony Abraham MD [address] [place] [address] ARTHROPLASTY, KNEE, TOTAL [[id number] (CPT )] 02/16/2025 10:00 AM EDT Office Visit Medical Office Building Surgery Sp[facility] [address], [address] [place] [address] Isaiah Anne PA [address] [place] [address] 03/21/2025 9:40 AM EDT Office Visit Medical Office Building [facility] [address], [address] [place] [address] Anthony Abraham MD [address] [place] [address] Scheduled Procedures Name Priority Associated Diagnoses Date/Ti hi ARTHROPLASTY, KNEE, TOTAL Primary osteoarthritis of one [...] documented as of this encounter Care Teams Patient Relations Coordinator Relationship Specialty Start Date End Date Siva Swann MD [address] [place] [id number] PCP - General Internal Medicine 12/03/21 documented as of this encounter
--- OUTSIDE RECORDS SUMMARY | 2025-01-20 08:21 | XMS_ITS | Encounter Summary ---
Author Organization Healthcare Address [address] [place] [address] Care Team Providers Care Necktie Maker Name Role Phone Siva Swann MD Primary Care Provider [phone] Reason for Visit * Reason Comments Med Refill Encounter Details Date Type Department Care Team (Late st Contact Info) Description 12/16/2024 Refill Medical Office Building Surgery [facility] [address], [address] [place] [address] Isaiah Anne PA [address] [place] [address] Social History Tobacco Use Types [...] Hospital Encounter [facility] Operating Room [address] [place] [address] Anthony Abraham MD [address] [place] [address] 02/01/2025 8:45 AM EDT - 02/01/2025 11:05 AM EDT Surgery [facility] Operating Room [address] [place] [address] Anthony Abraham MD [address] [place] [address] ARTHROPLASTY, KNEE, TOTAL [[id number] (CPT )] 02/16/2025 10:00 AM EDT Office Visit Medical Office Building Surgery [facility] [address], [address] [place] [address] Isaiah Anne PA [address] [place] [address] 03/21/2025 9:40 AM EDT Office Visit Medical Office Building Surgery [facility] [address], [address] [place] [address] Anthony Abraham MD [address] [facility] [address] [place] [address] Scheduled Procedures Name Priority Associated [...] documented as of this encounter Care Teams Necktie Maker Relationship Specialty Start Date End Date Siva Swann MD [address] [place] [id number] PCP - General Internal Medicine 12/03/21 documented as of this encounter
--- OUTSIDE RECORDS SUMMARY | 2025-01-20 08:21 | XMS_ITS | Clinical Summary ---
Author Organization [facility] Address [address] [place] [address] Care Team Providers Care Punch Molder Name Role Phone Siva Swann MD Primary Care Provider + [phone] Allergies Active Allergy Reactions Criticality Noted Date Comments Cephalexin Hives High 07/30/2013 Medications diclofenac (Voltaren) 75 MG EC tablet Take 1 tablet by mouth 2 times a day. 09/08/19 18 Active famotidine (Pepcid) 40 MG tablet Take 1 tablet by mouth every evening. 03/31/20 20 Active estradiol (Estrace) 0.1 MG/GM vaginal cream Insert 2 g into the vagina 2 times a week. 11/04/19 22 Active irbesartan-hyd roCHLOROthiazi de (Avalide) 300-12.5 MG tablet Take 0.5 tablets by mouth daily. Only takes 1/2 pill 11/18/19 22 Active rosuvastatin (Crestor) 20 MG tablet Take 1 tablet by mouth daily. 11/10/19 22 Active acetaminophen (Tylenol 8 Hour) 650 MG ER tablet Take 1 tablet by mouth every 8 hours as needed for mild pain. Do not crush, chew, or split. Active fluticasone (Flonase) 50 MCG/ACT nasal spray Administer 2 sprays into each nostril as needed for allergies. 05/28/20 24 Active Calcium Carbonate-Radha min D 250-3.125 MG-MCG tablet Take by mouth. A ctive VITAMIN D PO Take 400 Int'l Units/day by mouth daily. Active oxyCODONE (Roxicodone) 5 MG immediate release tablet Take 1 tablet by mouth every 6 hours as needed for moderate pain or severe pain. 50 tablet 11/24/19 Active Additional Information Patient not taking.Reported on 01/10/2025 acetaminophen (Tylenol Extra Strength) 500 MG tablet Take 2 tablets by mouth every 8 hours. 100 tablet 11/25/19 Active apixaban (Eliquis) 2.5 MG tablet Take 1 tablet by mouth 2 times a day. For 4 weeks post-op for blood clot prevention 56 tablet 11/25/19 Active Additional Information Patient not taking.Reported on 01/10/2025 nutritional drink (Boost Plus) liquid liquid Twice daily Disp 1 case 237 mL 11/25/19 Active oxyCODONE (Roxicodone) 5 MG immediate release tablet Take 1 tablet by mouth every 6 hours as needed for moderate pain or severe pain. 50 tablet 11/25/19 Active Additional Information Patient not taking.Reported on 01/10/2025 gabapentin (Neurontin) 300 MG capsule Take 1 capsule by mouth three times daily as needed 30 capsule 12/17/19 Active Additional Information Patient not taking.Reported on 01/10/2025 docusate sodium (Colace) 250 MG capsule Take 1 capsule by mouth 2 times a day. 60 capsule 11/25/19 25 025 meloxicam (Mobic) 15 MG tablet Take 1 tablet by mouth daily. For 4 weeks post-op 30 tablet 11/25/19 25 025 omeprazole (PriLOSEC) [address] capsule Take 1 capsule by mouth daily for 28 days. Do not crush or chew. 28 capsule 11/25/19 25 025 traMADol (Ultram) 50 MG tabletIndicati ons:Pain Take 1 tablet by mouth 3 times a day as needed for moderate pain or severe pain for up to 10 days. 30 tablet 12/09/19 25 025 Discontinued traMADol (Ultram) 50 MG tablet Take 1 tablet by mouth every 8 hours as needed for severe pain for up to 10 days. 30 tablet 12/25/19 25 025 Active Problems Problem Noted Date Diagnosed Date Primary osteoarthritis of one knee, left 025 Primary osteoarthritis of right knee 11/23/2024 Primary osteoarthritis of knees, bilateral 09/20 Encounters Date Type Department Care Team Description 01/18/2025 Telephone Medical Office Building [facility] [address], [address] [place] [address] Anthony Abraham MD 01/10/2025 10:10 AM EDT Office Visit Medical Office Building [facility] [address], [address] [place] [address] Anthony Abraham MD S/P total knee arthroplasty, right (Primary Dx); Primary osteoarthritis of one knee, left; Acute pain of left knee; Type 2 diabetes mellitus without complication, unspecified whether termite technician insulin use 01/10/2025 9:33 AM EDT - 01/10/2025 11:59 PM EDT Hospital Encounter Medical Office Building Radiology [address] [place] [address] S/P total knee arthroplasty, right Discharge Disposition: Home or Self Care 01/10/2025 Travel 12/24/2024 Refill Medical Office Building [facility] [address], [address] [place] [address] Isaiah Anne PA 12/16/2024 Refill Medical Office Building [facility] [address], [address] [place] [address] Isaiah Anne PA 12/08/2024 10:00 AM EDT Office Visit Medical Office Building [facility] [address], [address] [place] [address] Isaiah Anne PA S/P total knee arthroplasty, right (Primary Dx) 12/08/2024 Travel 12/02/2024 Orders Only Medical Office Building [facility] [address], [address] [place] [address] Isaiah Anne PA 12/02/2024 Telephone Medical Office Building [facility] [address], [address] [place] [address] Anthony Abraham MD 12/01/2024 Telephone Medical Office Building [facility] [address], [address] [place] [address] Anthony Abraham MD 11/26/2024 Telephone Medical Office Building Surgery [facility] [address] [facility], [address] [place] [address] Anthony Abraham MD 11/23/2024 11:15 AM EDT - 11/23/2024 1:30 PM EDT Surgery [facility] Operating [address] [place] [address] Anthony Abraham MD ARTHROPLASTY, KNEE, TOTAL [[id number] (CPT )] 11/23/2024 10:47 AM EDT Anesthesia Event [facility] Operating Room [address] [place] [address] Charlotte Jennings CRNA Wainscott, Justin K, MD 11/23/2024 7:19 AM EDT - 11/24/2024 1:21 PM EDT Hospital Encounter [facility] Inpatient [address] [place] [address] Anhtony Abraham MD Primary osteoarthritis of right knee (Primary Dx) Discharge Disposition: Home or Self Care 11/23/2024 Travel 11/08/2024 10:15 AM EDT Pre-Admission Testing [facility] Anesthesia [address] [place] [address] Primary osteoarthritis of knees, bilateral (Primary Dx) 11/08/2024 Travel from Last 3 Months Immunizations Immunization Administration Dates Next Due Influenza, seasonal, injectable 08/07/2013 Family History Medical History Relation Name Comments COPD Father Heart disease Father Stroke Father Heart disease Mother Stroke Mother Relation Name Status Comments Father Mother Social History Tobacco Use Types Packs/Day Years [...] on file Sexual Orientation Not on file Last Filed Vital Signs Vital Sign Reading Time Taken Comments Blood Pressure 134/80 01/10/2025 9:51 AM EDT Pulse 89 01/10/2025 9:51 AM EDT Temperature 36.4 C (97.5 F) 11/24/2024 12:16 PM EDT Respiratory Rate 18 12/08/2024 10:09 AM EDT Oxygen Saturation 99% 01/10/2025 9:51 AM EDT Inhaled Oxygen Concentration - - Weight 76 kg (167 lb 8.8 oz) 01/10/2025 9:51 AM EDT Height 154.9 cm (5' 1 ) 01/10/2025 9:51 AM EDT Body Mass Index 31.66 01/10/2025 9:51 AM EDT Plan of Treatment Upcoming Encounters Date Type Department Care Team (Latest Contact Info) Description 02/01/2025 8:45 AM EDT Hospital Encounter [facility] S Operating Room [address] [place] [address] Anthony Abraham MD [address] [place] [address] 02/01/2025 8:45 AM EDT - 02/01/2025 11:05 AM EDT Surgery [facility] Operating Room [address] [place] [address] Anthony Abraham MD [address] [place] [address] ARTHROPLASTY, KNEE, TOTAL [[id number] (CPT )] 02/16/2025 10:00 AM EDT Office Visit Medical Office Building Surgery [facility] [address], [address] [place] [address] Isaiah Anne PA [address] [place] [address] 03/21/2025 9:40 AM EDT Office Visit Medical Office Building Surgery [facility] [address] [place] [address] Anthony Abraham MD [address] [place] [address] Scheduled Procedures Name Priority Associated Diagnoses Date/Ti me ARTHROPLASTY, KNEE, TOTAL Primary osteoarthritis of one knee, left 02/01/2025 8:45 AM EDT Health Maintenance Due Date Last Done Comments [facility]-Hepatitis C Screening 1955 [facility]-Medicare Annual Wellness (AWV) 1955 [facility]-/Child/Adol SDOH Screenings 1955 Diabetes: Dental Exam 01/25/1966 [facility]- SDOH Screenings 01/25/1974 [facility]-Adult SDOH Screenings 01/25/1974 [facility]-Zoster Vaccines (1 of 2) 01/25/1975 [facility]-DTaP,Tdap,and Td Vaccines (1 - Tdap) 06/15/2000 06/14/2000 CT Colonography 01/25/2001 Colonoscopy 01/25/2001 FIT-DNA 01/25/2001 FIT 01/25/2001 FOBT 01/25/2001 Sigmoidoscopy 01/25/2001 [facility]-Colorectal Cancer Screening 01/25/2001 [facility]-Pneumococcal Vaccine: 50+ Years (2 of 2 - PPSV23) 04/10/2021 02/13/2021 [facility]-Bone Density Scan 06/04/2023 06/04/2021, 021 [id number] Vaccine ( season) 2024 07/11/2021, 11/02/2020, 10/12/2020 [facility]-Depression Screening 02/23/2025 02/24/2024, 05/0 03/2022 [facility]-Diabetes: Hemoglobin A1C 05/08/2025 11/08/2024 [facility]-Breast Cancer Screening 11/17/202510/27, 11/18/2023, 07/05/2022, Additional history exists [facility]-Influenza Vaccine Completed 05/26/2024 , 06/04/2023, 05/20/2022, Additional history exists [facility]-RSV Vaccine: 60+ Years or Completed 08/11/2024 [facility]-Obesity Intervention Completed 025, 12/08/2024, 09/20/2024, Additional history exists HPV Vaccines Aged Out No longer eligi ble based on patient's age to complete this topic [facility]-HIB Vaccines Aged Out No longer e ligible based on patient's age to complete this topic [facility]-Hepatitis A Vaccines Aged Out No longer eligible based on patient's age to complete this topic [facility]-IPV Vaccines Aged Out No longer e ligible based on patient's age to complete this topic [facility]-Rotavirus Vaccines Aged Out No lo nger eligible based on patient's age to complete this topic Goals Goal Patient Goal Type Associated Problems Recent Progress Patient-Stated? Author Autogenera damien Goal Care Plan Autogenerated Problem No Marta Espinoza Autogenera damien Goal Care Plan Autogenerated Problem No Sophy [employer] Implanted Type Area Dry Plasterer Helper Device Identifier Shelf Expiration Date Model / Serial / Lot Cement Palacos - [id number] Implanted:Qty : 2 on 11/23/2024 by Anthony Abraham MD at [facility] Cement Right: Knee [id number] 02/24/2029 [id number] / / [id number] Chg Tibial Gns Ii Cmt Size 3 R - [id number] Implanted:Qty : 1 on 11/23/2024 by Anthony Abraham MD at [facility] Knee Right: Knee [id number] 04/21/2034 [id number] / / [id number] Chg Insert Lgn Ps Hg Fx Xlpe S - [id number] Implanted:Qty : 1 on 11/23/2024 by Anthony Abraham MD at [facility] Knee Right: Knee [id number] 04/27/2034 [id number] / / [id number] Chg Femoral Legion Ps Nrrw Oxin Sz5 Rt - [id number] Implanted:Qty : 1 on 11/23/2024 by Anthony Abraham MD at [facility] Knee Right: Knee [id number] 05/02/2034 [id number] / / [id number] Patella Porous Oval 29mm - [id number] Implanted:Qty : 1 on 11/23/2024 by Anthony Abraham MD at [facility] Patella Right: Knee [id number] 08/30/2032 [id number] / / [id number] Procedures Procedure Name Priority Date/Time Associated Diagnosis Comments XR KNEE RIGHT 1 OR 2 VIEWS Routine 01/10/2025 9:41 AM EDT S/P total knee arthroplasty, right BASIC METABOLIC PANEL, PLASMA Routine 11/24/2024 4:35 AM EDT CBC W/O DIFFERENTIAL Routine 11/24/2024 4:35 AM EDT XR KNEE RIGHT 1 OR 2 VIEWS Routine 11/23/2024 1:12 PM EDT OH TOTAL KNEE ARTHROPLASTY 11/23/2024 10:34 AM EDT Primary osteoarthritis of right knee PB ANESTHESIA NON-TIMED PROCEDURE PLACEHOLDER Routine 11/23/2024 10:28 AM EDT CBC W/O DIFFERENTIAL Routine 11/08/2024 11:05 AM EDT Primary osteoarthritis of knees, bilateral History of total bilateral knee replacement BASIC METABOLIC PANEL, PLASMA Routine 11/08/2024 11:05 AM EDT Primary osteoarthritis of knees, bilateral ALBUMIN, PLASMA Routine 11/08/2024 11:05 AM EDT Primary osteoarthritis of knees, bilateral HEMOGLOBIN A1C Routine 11/08/2024 11:05 AM EDT Primary osteoarthritis of knees, bilateral History of total bilateral knee replacement Other abnormal glucose NICOTINE AND COTININE METABOLITE, SERUM, QUANTITATIVE Routine 11/08/2024 11:05 AM EDT Primary osteoarthritis of knees, bilateral from Last 3 Months Results * 6-Week Post-Op: XR Knee (AP Standing / Lateral Standing) (01/10/2025 9:41 AM EDT) Only the most recent of2 resultswithin the time period is included. Anatomical Region Laterality Modality Lower Extremities, Knee [...] SUAREZ IMG XR PROCEDURES Final Resul t * (ABNORMAL) CBC (11/24/2024 4:35 AM EDT) Only the most recent of2 resultswithin the time period is included. WBC Count 12.93(H) 3.70 - 10.30 10*3/uL LAB HEMATOLOGY METHOD 11/24/2024 4:57 AM EDT [facility] RBC Count 3.95 3.90 - 5.20 10*6/uL LAB HEMATOLOGY METHOD 11/24/2024 4:57 AM EDT [facility] HGB 12.0 11.2 - 15.7 g/dL LAB HEMATOLOGY METHOD 11/24/2024 4:57 AM EDT [facility] HCT 37.2 34.0 - 45.0 % LAB HEMATOLOGY METHOD 11/24/2024 4:57 AM EDT [facility] Platelet Count 194 155 - 369 10*3/uL LAB HEMATOLOGY METHOD 11/24/2024 4:57 AM EDT [facility] MCV 94 79 - 98 fL LAB HEMATOLOGY METHOD 11/24/2024 4:57 AM EDT [facility] MCH 30.4 26.0 - 32.0 pg LAB HEMATOLOGY METHOD 11/24/2024 4:57 AM EDT [facility] MCHC 32.3 30.7 - 35.5 g/dL LAB HEMATOLOGY METHOD 11/24/2024 4:57 AM EDT [facility] RDW 13.4 11.5 - 14.5 % LAB HEMATOLOGY METHOD 11/24/2024 4:57 AM EDT [facility] MPV 10.9 8.8 - 12.5 fL LAB HEMATOLOGY METHOD 11/24/2024 4:57 AM EDT [facility] nRBC 0.0 <=0.0 per 100 WBCs LAB HEMATOLOGY METHOD 11/24/2024 4:57 AM EDT [facility] Blood Venous blood specimen / Unknown Venipuncture / Unknown 11/24/2024 4:35 AM EDT 11/24/2024 4:51 AM EDT us Anthony Abraham MD LAB BLOOD ORDERABLES Final Re sult [facility] [address] [place] [address] * (ABNORMAL) Basic metabolic panel (11/24/2024 4:35 AM EDT) Only the most recent of2 resultswithin the time period is included. Glucose, Plasma 113(H) 74 - 99 mg/dL 11/24/2024 5:17 AM EDT [facility] BUN, Plasma 18 8 - 23 mg/dL 11/24/2024 5:17 AM EDT [facility] Creatinine, Plasma 0.77 0.60 - 1.10 mg/dL 11/24/2024 5:17 AM EDT [facility] BUN/Creatinine Ratio 23 11/24/2024 5:17 AM EDT [facility] Sodium, Plasma 139 136 - 145 mmol/L 11/24/2024 5:17 AM EDT [facility] Potassium, Plasma 4.8 3.6 - 4.9 mmol/L 11/24/2024 5:17 AM EDT [facility] Chloride, Plasma 106 97 - 107 mmol/L 11/24/2024 5:17 AM EDT [facility] CO2, Plasma 25 22 - 29 mmol/L 11/24/2024 5:17 AM EDT [facility] Anion Gap 8 6 - 16 mmol/L 11/24/2024 5:17 AM EDT [facility] Total Calcium, Plasma 9.1 8.9 - 10.2 mg/dL 11/24/2024 5:17 AM EDT [facility] eGFRcr 84.1 mL/min/1.7 3m*2 11/24/2024 5:17 AM EDT [facility] Comment:Reported eGFRcr in m L/min/1.73m2 is based the CKD-EPI 2020 equation that does not use a race coefficient. Blood Venous blood specimen / Unknown Venipuncture / Unknown 11/24/2024 4:35 AM EDT 11/24/2024 4:51 AM EDT us Anthony Abraham MD LAB BLOOD ORDERABLES Final Re sult [facility] [address] [place] [address] * PB ANESTHESIA NON-TIMED PROCEDURE PLACEHOLDER (11/23/2024 [...] us Mychal Do MD ANESTHESIA ORDERABLES Eli may Result * Nicotine Cotinine Metabolite (11/08/2024 11:05 AM EDT) NICOTINE <5 <5 ng/mL 11/10/2024 12:06 PM EDT [facility] Cotinine <5 <5 ng/mL 11/10/2024 12:06 PM EDT [facility] Blood Venous blood specimen / Unknown Venipuncture / Unknown 11/08/2024 11:05 AM EDT 11/08/2024 11:05 AM EDT Narrative [facility] - 11/10/2024 12:06 PM EDT Testing performed by LC-MS/MS at the [facility] Special Chemistry/Toxicology Laboratory. This test was developed and its performance characteristics determined by [facility]. This assay has not been cleared by the FDA. The laboratory is regulated under CLIA as qualified to perform high-complexity testing. This test is used for clinical purposes. Yannick Yaw PA LAB BLOOD ORDERABLES Final Result Performing Organization Address City/[facility]/ZIP Co de [place] [address] * Hemoglobin A1c (11/08/2024 11:05 AM EDT) Hemoglobin A1c 5.6 <5.7 % 11/08/2024 5:44 PM EDT [facility] Blood Venous blood specimen / Unknown Venipuncture / Unknown 11/08/2024 11:05 AM EDT 11/08/2024 11:05 AM EDT Narrative [facility] - 11/08/2024 5:44 PM EDT HA1C Interpretive Data: Diagnosis of Diabetes: Diabetic > or = 6.5% Pre-diabetic 5.7 to 6.4% Non-diabetic < or = 5.6% Glycemic Targets for Type I and Type II Diabetics: Non- Adults <7.0% Adults <6.0% Children and Adolescents <7.5% Source: [employer]. Standards of medical care in diabetes,2017. Diabetes Care.2017:40 (suppl 1):S1-S135. [facility] Yaw PA LAB BLOOD ORDERABLES Final Result Performing Organization Address City/[facility]/ZIP Co de Phone Number [facility] [address] [place] [address] * Albumin, Plasma (11/08/2024 11:05 AM EDT) Albumin, Plasma 4.7 3.5 - 5.2 g/dL 11/08/2024 3:34 PM EDT [facility] Blood Venous blood specimen / Unknown Venipuncture / Unknown 11/08/2024 11:05 AM EDT 11/08/2024 11:05 AM EDT us Yannick SUAREZ LAB BLOOD ORDERABLES Final Result [facility] [address] [place] [address] from Last 3 Months Additional Health Concerns Active Problems Noted Date Diagnosed Date Autogenerated Problem 11/22/2024 Autogenerated Problem 01/10/2025 Insurance MEDICARE [facility] Advance Directives * Full Code (Latest Code Status on File) Date Activated Date Inactivated Comments 11/23/2024 10:23 AM 11/24/2024 3:21 PM Question Answer Comments I have reviewed the capacity from the link above and, if needed, have updated to appropriate status: Yes Care Teams Punch Molder Relationship Specialty Start Date End Date Siva Swann MD [address] [place] [id number] PCP - General Internal Medicine 12/03/21
--- OUTSIDE RECORDS SUMMARY | 2025-01-20 08:21 | XMS_ITS | Encounter Summary ---
Author Organization Healthcare Address [address] [place] [address] Care Team Providers Care Personal Lines Insurance Advisor Name Role Phone Siva Swann MD Primary Care Provider + [phone] Reason for Visit * Reason Comments Med Refill Encounter Details Date Type Department Care Team (Late st Contact Info) Description 12/24/2024 Refill Medical Office Building [facility] [address], [address] [place] [address] Isaiah Anne PA [address] [place] [address] Social History Tobacco Use Types [...] Hospital Encounter [facility] [address] [place] [address] Anthony Abraham MD [address] [place] [address] 02/01/2025 8:45 AM EDT - 02/01/2025 11:05 AM EDT Surgery [facility] Operating Room [address] [place] [address] Anthony Abraham MD [address] [place] [address] ARTHROPLASTY, KNEE, TOTAL [[id number] (CPT )] 02/16/2025 10:00 AM EDT Office Visit Medical Office Building [facility] [address], [address] [place] [address] Isaiah Anne PA [address] [place] [address] 03/21/2025 9:40 AM EDT Office Visit Medical Office Building [facility] [address], [address] [place] [address] Anthony Abraham MD [address] [facility] [address] [place] [address] Scheduled Procedures Name Priority Associated [...] documented as of this encounter Care Teams Personal Lines Insurance Advisor Relationship Specialty Start Date End Date Siva Swann MD [address] [place] [id number] PCP - General Internal Medicine 12/03/21 documented as of this encounter
--- OUTSIDE RECORDS SUMMARY | 2025-01-20 08:21 | XMS_ITS | Encounter Summary ---
Author Organization Healthcare Address [address] [place] [address] Care Team Providers Care Dry Cleaning Teacher Name Role Phone Siva Swann MD Primary Care Provider [phone] Encounter Details Date Type Department Care Team (Latest Contact Info) Description 01/10/2025 Travel Social History Tobacco Use Types Packs/Day [...] Encounter [facility] Operating Room [address] [place] [address] Anthony Abraham MD [address] [address] 02/01/2025 8:45 AM EDT - 02/01/2025 11:05 AM EDT Surgery [facility] Operating Room [address] [place] [address] Anthony Abraham MD [address] [place] [address] ARTHROPLASTY, KNEE, TOTAL [[id number] (CPT )] 02/16/2025 10:00 AM EDT Office Visit Medical Office Building [facility] [address], [address] [place] [address] Isaiah Anne PA [address] [place] [address] 03/21/2025 9:40 AM EDT Office Visit Medical Office Building [facility] [address], [address] [place] [address] Anthony Abraham MD [address] [place] [address] Scheduled Procedures Name Priority Associated [...] documented as of this encounter Care Teams Dry Cleaning Teacher Relationship Specialty Start Date End Date Siva Swann MD [address] [place] [address] PCP - General Internal Medicine 12/03/21 documented as of this encounter
--- OUTSIDE RECORDS SUMMARY | 2025-01-20 08:21 | XMS_ITS | Encounter Summary ---
Author Organization [facility] Address [address] [place] [address] Care Team Providers Care Cad Developer Name Role Phone Siva Swann MD Primary Care Provider + [phone] Encounter Details Date Type Department Care Team ([facility] st Contact Info) Description 01/18/2025 Telephone Medical Office Building Surgery Spine & [facility] [address] [facility], [address] [place] [address] Anthony Abraham MD [address] [place] [address] Social History Tobacco Use Types [...] Telephone Encounter - Karla Frausto RN - 01/18/2025 10:20 AM EDT Called patient to coordinate pre-op labs. Labs sent to [facility]. Patient states she will go by end of the week. documented in this encounter Plan of Treatment Upcoming Encounters Date Type Department Care Team (Latest Contact Info) Description 02/01/2025 8:45 AM EDT Hospital Encounter [facility] S Operating Room [address] [place] [address] Anthony Abraham MD [address] [place] [address] 02/01/2025 8:45 AM EDT - 02/01/2025 11:05 AM EDT Surgery [facility] S Operating Room [address] [place] [address] Anthony Abraham MD [address] [place] [address] ARTHROPLASTY, KNEE, TOTAL [[id number] (CPT )] 02/16/2025 10:00 AM EDT Office Visit Medical Office Building [facility] [address], [address] [place] [address] Isaiah Anne PA [address] [place] [address] 03/21/2025 9:40 AM EDT Office Visit Medical Office Building [facility] [address], [address] [place] [address] Anthony Abraham MD [address] [place] [address] Scheduled Procedures Name Priority Associated Diagnoses Date/Ti me ARTHROPLASTY, KNEE, TOTAL Primary osteoarthritis of one knee, left 02/01/2025 8:45 AM EDT documented as of this encounter Goals Goal Patient Goal Type Associated Problems Recent Progress Patient-Stated? Author Autogenera damien Goal Care Plan Autogenerated Problem No Marta Espinoza Autogene damien Goal Care Plan Autogenerated Problem [...] documented as of this encounter Care Teams Cad Developer Relationship Specialty Start Date End Date Siva Swann MD [address] [place] [id number] PCP - General Internal Medicine 12/03/21 documented as of this encounter
[2025-01-20 09:16] LABS: Hematocrit 40.7 % (37.0-47.0); Hemoglobin 13.4 g/dL (12.2-16.2); Mean Corpuscular HGB Conc 32.9 g/dL (31.8-35.4); Mean Corpuscular Hemoglobin 30.6 pg (27.0-31.2); Mean Corpuscular Volume 92.9 fl (81-99); Nucleated Red Blood Cells # 0 10^3/uL; Nucleated Red Blood Cells % 0 %; Platelet Count 211 K/mm3 (142-424); Red Blood Count 4.38 M/mm3 (4.20-5.40); Red Cell Distribution Width 13.3 % (11.5-17.5); Red Cell Distribution Width-SD 45.3 fL; White Blood Count 6.8 K/mm3 (4.8-10.8)
[2025-01-20 09:30] LABS: Hemoglobin A1C 6.1 % (4.0-6.0)
[2025-01-20 09:31] LABS: Chloride 100 mmol/L (98-107)
[2025-01-20 09:32] LABS: Albumin Level 4.3 g/dl (3.5-5.0); Potassium 4.7 mmoL/L (3.5-5.1); Sodium 138 mmol/L (136-145)
[2025-01-20 09:35] LABS: Anion Gap 15.7 mEq/L (5-15); Blood Urea Nitrogen 20 mg/dl (7-17); Calcium 9.7 mg/dl (8.4-10.2); Carbon Dioxide 27 mmol/L (22.0-30.0); Estimated Glomerular Filt Rate 83 ml/min (>60); GFR (African American) 101 ML/MIN (>60); Glucose 100 mg/dl (74-100)
== END 2025-01-20 23:59 | disposition home or self-care (01) ==
LOC: LAB 08:18
PROVIDERS: PCP Internal Medicine Adolescent Medicine; Visit Provider Orthopaedic Surgery Adult Reconstructive Orthopaedic Surgery
DX: E11.9 Type 2 diabetes mellitus without complications (principal); M17.12 Unilateral primary osteoarthritis, left knee
CPT/HCPCS: 36415; 80048; 82040; 83036; 85027

== ENCOUNTER 2025-02-23 15:00 | Outpatient (RCR) | payer MEDICARE, OTHER, SELFPAY | END 2025-02-23 23:59 | disposition home or self-care (01) | LOC: PT 15:00 | PROVIDERS: PCP Internal Medicine Adolescent Medicine; Visit Provider Orthopaedic Surgery Adult Reconstructive Orthopaedic Surgery | DX: Z47.89 Encounter for other orthopedic aftercare (principal); Z96.652 Presence of left artificial knee joint | CPT/HCPCS: 97110; 97140; 97163 ==

== ENCOUNTER 2025-03-17 10:00 | Outpatient (RCR) | payer MEDICARE, OTHER, SELFPAY | END 2025-03-17 23:59 | disposition home or self-care (01) | LOC: PT 10:00 | PROVIDERS: PCP Internal Medicine Adolescent Medicine; Visit Provider Orthopaedic Surgery Adult Reconstructive Orthopaedic Surgery | DX: Z47.89 Encounter for other orthopedic aftercare (principal); Z96.652 Presence of left artificial knee joint | CPT/HCPCS: 97110; 97140; 97530 ==

== ENCOUNTER 2025-06-10 14:24 | Outpatient (CLI) | payer MEDICARE, OTHER, SELFPAY ==
--- NOTE | 2025-06-10 14:26 | XR_ITS ---
FINAL REPORT CLINICAL HISTORY: 1 year post-op evaluation FINDINGS: LEFT FOOT Three views of the left foot demonstrate no acute fracture or dislocation. There are extensive postoperative changes of the medial midfoot and first MTP joint. There is bony fusion of the first MTP joint. Moderate calcaneal spurring is noted. The visualized joint spaces are normally aligned. The soft tissues are unremarkable. IMPRESSION: Extensive postoperative changes without acute bony abnormality. Reviewed, Interpreted and Dictated by Alf Rivera MD Transcribed by Chantal Bernabe Authenticated and [facility]
== END 2025-06-10 23:59 | disposition home or self-care (01) ==
LOC: RAD 14:25
PROVIDERS: PCP Internal Medicine Adolescent Medicine; Visit Provider Podiatrist
DX: M96.0 Pseudarthrosis after fusion or arthrodesis (principal); M77.32 Calcaneal spur, left foot
CPT/HCPCS: 73630